=== PATIENT | male | born 1990 | race Caucasian/White ===

== ENCOUNTER 2017-06-22 08:24 | Emergency (ER) | payer MEDICAID ==
[2017-06-22] MEDS ORDERED: ACETYLCYSTEINE INJ 6000 MG/30 ML IV ONE (09:00)
--- NOTE | 2017-06-22 09:00 | ER Document Report ---
ED Psych Disorder / Suicide - General Mode of Arrival: Medic Information source: Patient TRAVEL OUTSIDE OF THE U.S. IN LAST 30 DAYS: No - HPI Patient complains to provider of: Overdose - Tylenol Onset: Just prior to arrival Overdose of: Acetominophen Associated symptoms: Other - see above <INEZ KIM - Last Filed: 06/22/17 08:55> - General Information source: Patient, Friend, [facility] Records TRAVEL OUTSIDE OF THE [place]. 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 Patient states he has an increase in financial stress and he hit his breaking point. Patient lives in [place] and brought a friend to town when his car broke down, patient said that was his last straw. Patient states taken the Tylenol was an impulsive decision and he "felt so overwhelmed in that very moment". Patient is in school at [employer] and works for [employer], he states he has been doing really well and not in the hospital the past 2 years for any overdose or psych related complaints. Patent has been going to therapy. (INEZ KIM) - HPI Notes: Patient is well known to this provider and is considered manipulative when providing medical and psychiatric history. Patient has not been seen at [facility] for approximately 2 years secondary to guardianship put in place by [place] [facility] and Patient being relocated to [place]. Patient reportedly was court ordered to the [facility] in [place] for a 90 day evaluation in April 2015 and subsequently stayed for 205 days while guardianship was obtained. He was reportedly discharged in December 2015. Patient reports on today's date he felt overwhelmed by financial and life stressors and impulsively took approximately 30 tylenol. When advised his lab work did not support his assertation, he reported " I know what I took." He went on to state he has done very well to stay out of the hospital for two years , he just graduated from [employer] with his AA, and was now attending [employer] for pre-law. He reported he was attending a DBT group at [facility], [facility] group on Tuesday nights, and another mental health support group on Tuesday nights. He reported being prescribed Wellbutrin 300 mg qd, Depakote 500 mg bid (for seizures-which he does not have), Tenex 1 mg, Xanax 1 mg bid, Oxycodone 15 mg tid, and Xarelto for a blood clotting disorder which has been proven to be non-existent as well. When pressed for more details, Patient went on to state he has not taken his medication for approximately one month and his primary care physician from [facility] in [place] prescribes everything but the Oxycodone which is prescribed by his Orthopedic Dr. 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 He could not provide a reason for a psychiatrist at [place] to not be providing him the medications. Patient also reported he has not attended his groups in a month. Patient reported this morning he was impulsive and "took the tylenol." Patient reported in March 2017 he was granted his guardianship back from [facility], but is unclear whether he is telling the truth. [facility] was unable to provide information at this time. Review of the [place] Controlled Substance Abuse Reporting [place] revealed a prescription for Valium on 03/02/2017 from [facility] in [place], 2 tablets, a prescription from [facility] of [place] for Ocycodone 5- 325 12 tablets / 3 day supply. Spoke with Henry, Patient's roommate who reported the Patient slept in his car last night and when he came in the room this morning he reported he did not feel well, was vomiting, had diarrhea, and thought he needed to check himself into the ED. Henry reported Patient's last hospital visit was two weeks. He reported the Patient's car was less than stellar and denied Patient was in school. He also stated he had never heard the Patient make suicidal statements and they had lived together and done everything together for the past two years. He reported they generally sat around and watched Meiyou or drove around town. He stated the only medication the Patient took was Xarelto. He reported he was aware of an incident approximately 1 1/2 years ago when the Patient made comments about wanting to jump off the [facility] but stated the Patient does not attend any doctor appointments or groups. He is unaware of whether the Patient has a guardian. Patient was alert and oriented to person, place, time, and circumstance. Mood was euthymic and affect was mood congruent. He denied suicidal / homicidal ideation, intent, or plan. He denied auditory / visual hallucinations and no delusions were noted. Thought processes were logical, linear, and coherent. Thought content was appropriate to conversation. Conversational speech was within normal limits for rate, tone, and prosody. Intellectual abilities were estimated within the average range. Recent, immediate, and remote memories were grossly intact. Attention and concentration was within normal limits. Insight, judgment, and impulse control was poor. Patient's information is generally fabricated and may to dome degree rise to the level of delusional belief patterns. 1. 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 Patient and his history is well known to this provider and ED. His reported complaint and symptoms are not consistent with objective findings and data obtained during his visit. Information he shared regarding his history for the past two years is inconsistent and again much of his medical history was previously disproven. Collateral information contradicts his entire claim. Patient is recommended to follow up with [facility] who was his established provider before he again became treatment and medication non-compliant. Patient was advised that should he re-engage in his previous pattern of behaviors, a recommendation for guardianship will once again be re-initiated. Again, Patient is psychiatrically cleared for discharge and recommended for outpatient follow up with [facility] in [place]. ED Physician in agreement with recommendation and disposition. (VENKATA MANZO) - Related Data Allergies/Adverse Reactions: diphenhydramine HCl [From Benadryl] Allergy (Severe, Verified 06/22/17 08:33) Apnea haloperidol [From Haldol] Allergy (Severe, Verified 06/22/17 08:33) Rash, Apnea haloperidol lactate [From Haldol] Allergy (Severe, Verified 06/22/17 08:33) Rash, Apnea Heparin Analogues [Heparin Agents] Allergy (Severe, Verified 06/22/17 08:33) Anaphylaxis methadone [Methadone] Allergy (Severe, Verified 06/22/17 08:33) Anaphylaxis buprenorphine HCl [From Suboxone] Allergy (Unknown, Verified 06/22/17 08:33) Rash naloxone HCl [From Suboxone] Allergy (Unknown, Verified 06/22/17 08:33) enoxaparin sodium [From Lovenox] Allergy (Verified 06/22/17 08:33) Rash hydroxyzine HCl [From Vistaril] Allergy (Verified 06/22/17 08:33) Apnea hydroxyzine pamoate [From Vistaril] Allergy (Verified 06/22/17 08:33) Apnea lidocaine [Lidocaine] Allergy (Verified 06/22/17 08:33) paliperidone [From Invega] Adverse Reaction (Verified 06/22/17 08:33) Severe Hypertension propranolol [Propranolol] Adverse Reaction (Verified 06/22/17 08:33) Severe Hypotension warfarin sodium [From Coumadin] Adverse Reaction (Verified 06/22/17 08:33) "Did not work" onions Allergy (Severe, Uncoded 06/22/17 08:33) Anaphylaxis nicotine patch adhesive Allergy (Intermediate, Uncoded 06/22/17 08:33) Rash Past Medical History - General Information source: Patient - Social History Smoking Status: Current Every Day Smoker Family History: Reviewed & Not Pertinent, Other - father with CAD in his 50s and an unknown clotting disorder; uncle with unknown clotting disorder. Patient has suicidal ideation: Yes Patient has homicidal ideation: No - Past Medical History Cardiac Medical History: Reports: Hx DVT, Hx Heart Attack - x's2, Hx Hypercholesterolemia, Hx Hypertension, Hx Pulmonary Embolism Pulmonary Medical History: Reports: Hx Pneumonia, Hx Sleep Apnea Neurological Medical History: Reports: Hx Seizures Endocrine Medical History: Reports: Hx Hypothyroidism Renal/ Medical History: Denies: Hx Peritoneal Dialysis GI Medical History: Reports: Hx Gastroesophageal Reflux Disease Psychiatric Medical History: Reports: Hx Anxiety, Hx Bipolar Disorder, Hx Borderline Personality Disorder, Hx Depression, Hx Personality Disorder, Hx Schizoaffective Disorder, Hx Schizophrenia Traumatic Medical History: Reports: Hx Traumatic Brain Injury Past Surgical History: Reports: Hx Cardiac Surgery - cannot confirm, Hx Coronary Stent - cannot confirm - Immunizations Immunizations up to date: Yes Hx Diphtheria, Pertussis, Tetanus Vaccination: Yes Hx Pneumococcal Vaccination: 10/31/13 <INEZ KIM - Last Filed: 06/22/17 08:55> - General Information source: Patient - Social History Smoking Status: Current Some Day Smoker <VENKATA MANZO - Last Filed: 06/22/17 11:20> Review of Systems - Review of Systems Constitutional: No symptoms reported EENT: No symptoms reported Cardiovascular: No symptoms reported Respiratory: No symptoms reported Gastrointestinal: No symptoms reported Genitourinary: No symptoms reported Male Genitourinary: No symptoms reported Musculoskeletal: No symptoms reported Skin: No symptoms reported Hematologic/Lymphatic: No symptoms reported Neurological/Psychological: See HPI, Other - overdose <KAREEN KIMANDRA - Last Filed: 06/22/17 08:55> Physical Exam - General General appearance: Alert, Anxious - HEENT Head: Normocephalic, Atraumatic Eyes: Normal Extraocular movements intact: Yes Pupils: PERRL - Respiratory Respiratory status: No respiratory distress Breath sounds: Normal - Cardiovascular Rhythm: Regular Heart sounds: Normal auscultation Murmur: No - Abdominal Inspection: Obese - Back Back: Normal - Extremities General upper extremity: Normal inspection, Normal ROM General lower extremity: Normal inspection, Normal ROM - Neurological Neuro grossly intact: Yes - Psychological Associated symptoms: Anxious - Skin Skin Temperature: Warm Skin Moisture: Dry Skin Color: Normal <INEZ KIM - Last Filed: 06/22/17 08:55> - Vital signs Vitals: Temp Pulse Resp BP Pulse Ox 98.8 F 87 18 137/94 H 98 06/22/17 08:33 06/22/17 08:33 06/22/17 08:33 06/22/17 08:33 06/22/17 08:33 Course <INZE KIM - Last Filed: 06/22/17 08:55> - Laboratory Result Diagrams: 06/22/17 08:49 06/22/17 08:49 <VENKATA MANZO - Last Filed: 06/22/17 11:20> - Laboratory Result Diagrams: 06/22/17 08:49 06/22/17 08:49 - EKG Interpretation by Pr EKG shows normal: Sinus rhythm, [place], Intervals, QRS Complexes, ST-T Waves Rate: Normal - 81 Rhythm: NSR <SHRUTI DANIELS - Last Filed: 06/22/17 14:09> - Re-evaluation Re-evalutation: 06/22/17 14:08 The patient's initial acetaminophen level is 27 and the repeat is undetectable. It appears the patient took a therapeutic dose of acetaminophen only. He essentially lied about overdosing today. (SHRUTI DANIELS) - Vital Signs Vital signs: Temp Pulse Resp BP Pulse Ox 98.8 F 87 18 131/84 H 97 06/22/17 08:33 06/22/17 08:33 06/22/17 13:01 06/22/17 13:01 06/22/17 13:01 - Laboratory Laboratory results interpreted by me: 06/22/17 06/22/17 06/22/17 08:49 09:48 12:57 Sodium 146.8 H Chloride 109 H Glucose 114 H ALT 113 H Urine Urobilinogen 2.0 H Urine Ascorbic Acid 40 H Salicylates < 1.0 L Acetaminophen < 10 L Discharge <INEZ KIM - Last Filed: 06/22/17 08:55> <VENKATA MANZO - Last Filed: 06/22/17 11:20> <SHRUTI DANIELS - Last Filed: 06/22/17 14:09> - Discharge Clinical Impression: Illness anxiety disorder, Malingering, Mnchausen's syndrome Acetaminophen overdose Qualifiers: Encounter type: initial encounter Injury intent: intentional self-harm Qualified Code(s): T39.1X2A - Poisoning by 4-Aminophenol derivatives, intentional self-harm, initial encounter Condition: Good Disposition: HOME, SELF-CARE Additional Instructions: Patient is recommended to follow up with [facility] for Outpatient Services and to re-engage with his DBT Group and medication provider. Overdose You have taken more medication than you should have. After your evaluation and care, it is felt that your overdose is not likely to be harmful or of any significant consequences to you and you are being discharged. In the future, you should be careful not to take more medications than what is prescribed for you. Although your overdose does not seem to be of any danger to you at this time, if you develop any unusual or unexpected symptoms after your discharge, you should return to the Emergency Department immediately for re-evaluation. Scribe Attestation: 06/22/17 11:01 I personally performed the services described in the documentation, reviewed and edited the documentation which was dictated to the scribe in my presence, and it accurately records my words and actions. (SHRUTI DANIELS) Scribe Documentation - Scribe Written by Scribe:: nereyda Mckinley, 06/22/2017, 0901 acting as scribe for :: Helen <INEZ KIM - Last Filed: 06/22/17 08:55>
[2017-06-22] MEDS ORDERED: ACETYLCYSTEINE INJ 6000 MG/30 ML IV PRN (09:02)
[2017-06-22 09:03] LABS: ABSOLUTE BASOPHILS # (AUTO) 0.1 10^3/uL (0.0-0.2); ABSOLUTE EOSINOPHILS # (AUTO) 0.1 10^3/uL (0.0-0.6); ABSOLUTE LYMPHOCYTES (AUTO) 1.8 10^3/uL (0.5-4.7); ABSOLUTE MONOCYTES (AUTO) 0.7 10^3/uL (0.1-1.4); ABSOLUTE NEUT (AUTO) 5.3 10^3/uL (1.7-8.2); BASOPHILS % (AUTO) 0.7 % (0-2); EOSINOPHILS % (AUTO) 1.3 % (0-6); HEMATOCRIT 44.3 % (37.9-51.0); HEMOGLOBIN 15.1 g/dL (13.5-17.0); LYMPHOCYTES % (AUTO) 22.3 % (13-45); MEAN CORPUSCULAR HEMOGLOBIN 27.4 pg (27.0-33.4); MEAN CORPUSCULAR HGB CONC 34.1 g/dL (32.0-36.0); MEAN CORPUSCULAR VOLUME 80 fl (80-97); MONOCYTES % (AUTO) 8.6 % (3-13); RED BLOOD COUNT 5.52 10^6/uL (4.35-5.55); RED CELL DISTRIBUTION WIDTH 13.9 % (11.5-14.0); SEGMENTED NEUTROPHILS % (AUTO) 67.1 % (42-78); WHITE BLOOD COUNT 7.9 10^3/uL (4.0-10.5)
[2017-06-22 09:11] LABS: ALANINE AMINOTRANSFERASE 113 U/L (21-72); ALBUMIN 4.4 g/dL (3.5-5.0); ALCOHOL < 10 mg/dL (NONE DETECTED); ALKALINE PHOSPHATASE 109 U/L (38-126); ANION GAP 13 (5-19); ASPARTATE AMINO TRANSFERASE 39 U/L (17-59); BILIRUBIN,DIRECT 0.4 mg/dL (0.0-0.4); BILIRUBIN,TOTAL 0.6 mg/dL (0.2-1.3); BLOOD UREA NITROGEN 17 mg/dL (7-20); CALCIUM 9.8 mg/dL (8.4-10.2); CARBON DIOXIDE 25 mmol/L (22-30); CHLORIDE 109 mmol/L (98-107); CREATININE RESULT 0.84 mg/dL (0.52-1.25); GLUCOSE 114 mg/dL (75-110); POTASSIUM 4.1 mmol/L (3.6-5.0); SODIUM 146.8 mmol/L (137-145); TOTAL PROTEIN 7.1 g/dL (6.3-8.2)
[2017-06-22 09:57] LABS: APPEARANCE,URINE CLEAR; BILIRUBIN,URINE NEGATIVE (NEGATIVE); GLUCOSE, URINE NEGATIVE (NEGATIVE); KETONES,URINE NEGATIVE (NEGATIVE); LEUKOCYTE ESTERASE,URINE NEGATIVE (NEGATIVE); NITRITE,URINE NEGATIVE (NEGATIVE); PROTEIN,URINE NEGATIVE (NEGATIVE); URINE SPECIFIC GRAVITY 1.042
[2017-06-22 10:16] LABS: URINE BARBITURATES SCREEN NEGATIVE; URINE METHADONE SCREEN NEGATIVE; URINE OPIATES LOW NEGATIVE; URINE PHENCYCLIDINE SCREEN NEGATIVE
--- NOTE | 2017-06-22 10:24 | EKG REPORT ---
SEVERITY:- NORMAL ECG - SINUS RHYTHM : Confirmed by: Ella Avendaño 22-Jun-2017 10:23:39
[2017-06-22 14:21] VITALS: BP 134/81
== END 2017-06-22 14:25 | disposition home or self-care (01) ==
LOC: EEVIPCON 08:24 → ER 08:24
DX: T45.7X2A Poisoning by anticoagulant antagonists, vitamin K and other coagulants, intentional self-harm, initial encounter (principal); F68.10 Factitious disorder imposed on self, unspecified; Z76.5 Malingerer [conscious simulation]; I25.2 Old myocardial infarction; I10 Essential (primary) hypertension; F17.200 Nicotine dependence, unspecified, uncomplicated; Z88.8 Allergy status to other drugs, medicaments and biological substances; Z88.5 Allergy status to narcotic agent; Z88.3 Allergy status to other anti-infective agents; Z88.4 Allergy status to anesthetic agent; Z87.892 Personal history of anaphylaxis; Z91.018 Allergy to other foods
CPT/HCPCS: 93005; 99284; 96365; 36415; 80307 ×4; 85025; 80053; 81001; 93010; J0132

== ENCOUNTER 2017-12-18 21:56 | Emergency (ER) | payer MEDICAID | END 2017-12-18 22:15 | disposition left against medical advice (07) | LOC: ER 21:56 | DX: Z53.21 Procedure and treatment not carried out due to patient leaving prior to being seen by health care provider (principal) ==

== ENCOUNTER 2018-01-25 21:11 | Emergency (ER) | payer MEDICAID, OTHER ==
[2018-01-25 21:54] VITALS: BP 144/88
[2018-01-25] MEDS ORDERED: NORMAL SALINE 1000 ML 1,000 ML IV ONE (22:11)
--- NOTE | 2018-01-25 22:11 | ER Document Report ---
ED Medical Screen (RME) - General Chief Complaint: Rectal Bleeding Stated Complaint: RECTAL BLEEDING Time Seen by Provider: 01/25/18 22:08 Mode of Arrival: Ambulatory Information source: Patient Notes: Patient presents complaining of generalized abdominal pain with rectal bleeding that started this evening. Patient states she has had 4 loose bowel movements that have had blood. Patient complains of mild lightheadedness. Patient denies any nausea or vomiting. Patient does report previous history of GI bleed due to supratherapeutic Coumadin and an additional episode when he had a gastric ulcer. Patient states he is not presently taking any Coumadin. hx: Factor V Leiden, anxiety, depression, TBI, seizures, chronic back pain, gastric ulcer I have greeted and performed a rapid initial assessment of this patient. A comprehensive ED assessment and evaluation of the patient, analysis of test results and completion of the medical decision making process will be conducted by additional ED providers. TRAVEL OUTSIDE OF THE U.S. IN LAST 30 DAYS: No - Related Data Allergies/Adverse Reactions: diphenhydramine HCl [From Benadryl] Allergy (Severe, Verified 01/25/18 21:38) Apnea haloperidol [From Haldol] Allergy (Severe, Verified 01/25/18 21:38) Rash, Apnea haloperidol lactate [From Haldol] Allergy (Severe, Verified 01/25/18 21:38) Rash, Apnea Heparin Analogues [Heparin Agents] Allergy (Severe, Verified 01/25/18 21:38) Anaphylaxis enoxaparin sodium [From Lovenox] Allergy (Verified 01/25/18 21:38) Rash hydroxyzine HCl [From Vistaril] Allergy (Verified 01/25/18 21:38) Apnea hydroxyzine pamoate [From Vistaril] Allergy (Verified 01/25/18 21:38) Apnea lidocaine [Lidocaine] Allergy (Verified 01/25/18 21:38) paliperidone [From Invega] Adverse Reaction (Verified 01/25/18 21:38) Severe Hypertension propranolol [Propranolol] Adverse Reaction (Verified 01/25/18 21:38) Severe Hypotension warfarin sodium [From Coumadin] Adverse Reaction (Verified 01/25/18 21:38) "Did not work" onions Allergy (Severe, Uncoded 06/22/17 08:33) Anaphylaxis nicotine patch adhesive Allergy (Intermediate, Uncoded 06/22/17 08:33) Rash Past Medical History - Past Medical History Cardiac Medical History: Reports: Hx DVT, Hx Heart Attack - x's2, Hx Hypercholesterolemia, Hx Hypertension, Hx Pulmonary Embolism Pulmonary Medical History: Reports: Hx Pneumonia, Hx Sleep Apnea Neurological Medical History: Reports: Hx Seizures Endocrine Medical History: Reports: Hx Hypothyroidism Renal/ Medical History: Denies: Hx Peritoneal Dialysis GI Medical History: Reports: Hx Gastroesophageal Reflux Disease Psychiatric Medical History: Reports: Hx Anxiety, Hx Bipolar Disorder, Hx Borderline Personality Disorder, Hx Depression, Hx Personality Disorder, Hx Schizoaffective Disorder, Hx Schizophrenia Traumatic Medical History: Reports: Hx Traumatic Brain Injury Past Surgical History: Reports: Hx Cardiac Surgery - cannot confirm, Hx Coronary Stent - cannot confirm - Immunizations Immunizations up to date: Yes Hx Diphtheria, Pertussis, Tetanus Vaccination: Yes Physical Exam - Vital signs Vitals: Temp Pulse Resp BP Pulse Ox 98.4 F 74 18 144/88 H 98 01/25/18 21:50 01/25/18 21:50 01/25/18 21:50 01/25/18 21:50 01/25/18 21:50 - Abdominal Tenderness: Tender - Generalized abdomen Course - Vital Signs Vital signs: Temp Pulse Resp BP Pulse Ox 98.4 F 74 18 144/88 H 98 01/25/18 21:50 01/25/18 21:50 01/25/18 21:50 01/25/18 21:50 01/25/18 21:50
[2018-01-25] MEDS ORDERED: ACETAMINOPHEN 325 MG TABLET PO ONE (22:33)
--- NOTE | 2018-01-25 23:28 | ER Document Report ---
ED General - General Chief Complaint: Rectal Bleeding Stated Complaint: RECTAL BLEEDING Time Seen by Provider: 01/25/18 22:08 Mode of Arrival: Ambulatory Notes: Patient is a 27-year-old male who presents with complaint of rectal bleeding. He has a history of recurrent rectal bleeding. He is on Xarelto due to a history of factor V Leiden disease. He has had multiple blood clots in the past. He says he does not have any active blood clots at this time. He says throughout the day he has had some intermittent bloody stools. He says it has been coffee-ground in color. He says he has chronic back pain. He says because a chronic back pain he has some abdominal pain but he says this is not new or worsened from baseline. No fevers. No vomiting. No other complaints at this time. TRAVEL OUTSIDE OF THE [place] IN LAST 30 DAYS: No - Related Data Allergies/Adverse Reactions: diphenhydramine HCl [From Benadryl] Allergy (Severe, Verified 01/25/18 21:38) Apnea haloperidol [From Haldol] Allergy (Severe, Verified 01/25/18 21:38) Rash, Apnea haloperidol lactate [From Haldol] Allergy (Severe, Verified 01/25/18 21:38) Rash, Apnea Heparin Analogues [Heparin Agents] Allergy (Severe, Verified 01/25/18 21:38) Anaphylaxis enoxaparin sodium [From Lovenox] Allergy (Verified 01/25/18 21:38) Rash hydroxyzine HCl [From Vistaril] Allergy (Verified 01/25/18 21:38) Apnea hydroxyzine pamoate [From Vistaril] Allergy (Verified 01/25/18 21:38) Apnea lidocaine [Lidocaine] Allergy (Verified 01/25/18 21:38) paliperidone [From Invega] Adverse Reaction (Verified 01/25/18 21:38) Severe Hypertension propranolol [Propranolol] Adverse Reaction (Verified 01/25/18 21:38) Severe Hypotension warfarin sodium [From Coumadin] Adverse Reaction (Verified 01/25/18 21:38) "Did not work" onions Allergy (Severe, Uncoded 06/22/17 08:33) Anaphylaxis nicotine patch adhesive Allergy (Intermediate, Uncoded 06/22/17 08:33) Rash Past Medical History - General Information source: Patient - Social History Smoking Status: Unknown if Ever Smoked Frequency of alcohol use: None Drug Abuse: None Family History: Reviewed & Not Pertinent, Other - father with CAD in his 50s and an unknown clotting disorder; uncle with unknown clotting disorder. - Past Medical History Cardiac Medical History: Reports: Hx DVT, Hx Heart Attack - x's2, Hx Hypercholesterolemia, Hx Hypertension, Hx Pulmonary Embolism Pulmonary Medical History: Reports: Hx Pneumonia, Hx Sleep Apnea Neurological Medical History: Reports: Hx Seizures Endocrine Medical History: Reports: Hx Hypothyroidism Renal/ Medical History: Denies: Hx Peritoneal Dialysis GI Medical History: Reports: Hx Gastroesophageal Reflux Disease Psychiatric Medical History: Reports: Hx Anxiety, Hx Bipolar Disorder, Hx Borderline Personality Disorder, Hx Depression, Hx Personality Disorder, Hx Schizoaffective Disorder, Hx Schizophrenia Traumatic Medical History: Reports: Hx Traumatic Brain Injury Past Surgical History: Reports: Hx Cardiac Surgery - cannot confirm, Hx Coronary Stent - cannot confirm - Immunizations Immunizations up to date: Yes Hx Diphtheria, Pertussis, Tetanus Vaccination: Yes Hx Pneumococcal Vaccination: 10/31/13 Review of Systems - Review of Systems Notes: My Normal Review Basic REVIEW OF SYSTEMS: CONSTITUTIONAL : Denies fever, chills, or sweats. Denies recent illness. EENT: Denies eye, ear, throat, or mouth pain or symptoms. Denies nasal or sinus congestion. RESPIRATORY: Denies cough, cold, or chest congestion. Denies shortness of breath, difficulty breathing, or wheezing. GASTROINTESTINAL: Some mild abdominal pain. Rectal bleeding. MUSCULOSKELETAL: Denies neck or back pain or joint pain or swelling. SKIN: Denies rash or skin lesions. NEUROLOGICAL: Denies altered mental status or loss of consciousness. ALL OTHER SYSTEMS REVIEWED AND NEGATIVE. Physical Exam - Vital signs Vitals: Temp Pulse Resp BP Pulse Ox 98.4 F 74 18 144/88 H 98 01/25/18 21:50 01/25/18 21:50 01/25/18 21:50 01/25/18 21:50 01/25/18 21:50 - Notes Notes: General Appearance: Well nourished, alert, cooperative, no acute distress, no obvious discomfort. Vitals: reviewed, See vital signs table. Head: no swelling or tenderness to the head Eyes: PERRL, EOMI, Conjuctiva clear Mouth: No decreasd moisture Lungs: No wheezing, No rales, No rhonci, No accessory muscle use, good air exchange bilaterally. Heart: Normal rate, Regular rythm, No murmur, no rub Abdomen: Normal BS, soft, No rigidity, mild epigastric abdominal tenderness, No guarding, no rebound, Rectal: Light brown stool without evidence of gross blood. No hemorrhoids seen on exam. Extremities: good pulses in all extremities, no swelling or tenderness in the extremities, no edema. Skin: warm, dry, appropriate color, no rash Neuro: speech clear, oriented x 3, normal affect, responds appropriately to questions. Course - Re-evaluation Re-evalutation: 01/26/18 02:00 When I did my examination the patient she asked for "something small for pain". He said this was worse chronic back pain. Left the room. I was not taking care of him very sick pediatric patient. Apparently when the nurse brought him the Tylenol and he became very upset and said he was going to leave if we did give him something stronger for pain. At that time is course currently tied up with a stick. Patient therefore unable to come immediately to his room. It is unlikely it would have given him opiate pain medications as he wanted pain for his chronic back pain and he did not have significant pain on exam and he has a history of multiple drug overdoses. Therefore the combination of those reasons would have made it very unlikely that I would have given him opiates in the first place. By the time I was able to go evaluate the patient he had already eloped. Dictation of this chart was performed using voice recognition software; therefore, there may be some unintended grammatical errors. 01/26/18 02:09 - Vital Signs Vital signs: Temp Pulse Resp BP Pulse Ox 98.4 F 74 18 144/88 H 98 01/25/18 21:50 01/25/18 21:50 01/25/18 21:50 01/25/18 21:50 01/25/18 21:50
== END 2018-01-26 00:15 | disposition left against medical advice (07) ==
LOC: ER 21:11
DX: Z53.21 Procedure and treatment not carried out due to patient leaving prior to being seen by health care provider (principal); K62.5 Hemorrhage of anus and rectum; Z79.01 Long term (current) use of anticoagulants; M54.9 Dorsalgia, unspecified; G89.29 Other chronic pain; R10.9 Unspecified abdominal pain; I10 Essential (primary) hypertension
CPT/HCPCS: 82272; 99281

== ENCOUNTER 2018-02-08 07:47 | Emergency (ER) | payer MEDICAID ==
[2018-02-08 09:29] LABS: ABSOLUTE EOSINOPHILS # (AUTO) 0.1 10^3/uL (0.0-0.6); ABSOLUTE LYMPHOCYTES (AUTO) 1.6 10^3/uL (0.5-4.7); ABSOLUTE MONOCYTES (AUTO) 0.5 10^3/uL (0.1-1.4); ABSOLUTE NEUT (AUTO) 6.2 10^3/uL (1.7-8.2); BASOPHILS % (AUTO) 0.4 % (0-2); EOSINOPHILS % (AUTO) 1.5 % (0-6); HEMATOCRIT 47.4 % (37.9-51.0); HEMOGLOBIN 16.1 g/dL (13.5-17.0); LYMPHOCYTES % (AUTO) 18.6 % (13-45); MEAN CORPUSCULAR VOLUME 79 fl (80-97); MONOCYTES % (AUTO) 5.9 % (3-13); PLATELET COUNT 229 10^3/uL (150-450); RED BLOOD COUNT 5.97 10^6/uL (4.35-5.55); RED CELL DISTRIBUTION WIDTH 13.9 % (11.5-14.0); SEGMENTED NEUTROPHILS % (AUTO) 73.6 % (42-78); TOTAL CELLS COUNTED % (AUTO) 100 %; WHITE BLOOD COUNT 8.4 10^3/uL (4.0-10.5)
[2018-02-08 09:59] LABS: ALANINE AMINOTRANSFERASE 36 U/L (21-72); ALBUMIN 4.3 g/dL (3.5-5.0); ALKALINE PHOSPHATASE 88 U/L (38-126); ANION GAP 10 (5-19); ASPARTATE AMINO TRANSFERASE 21 U/L (17-59); BILIRUBIN,DIRECT 0.2 mg/dL (0.0-0.4); BILIRUBIN,TOTAL 0.5 mg/dL (0.2-1.3); BLOOD UREA NITROGEN 10 mg/dL (7-20); CALCIUM 9.6 mg/dL (8.4-10.2); CARBON DIOXIDE 29 mmol/L (22-30); CHLORIDE 108 mmol/L (98-107); GLUCOSE 101 mg/dL (75-110); SODIUM 147.4 mmol/L (137-145); TOTAL PROTEIN 7.2 g/dL (6.3-8.2)
--- NOTE | 2018-02-08 10:11 | ER Document Report ---
ED General - General Chief Complaint: Chest Pain Stated Complaint: CHEST PAIN Time Seen by Provider: 02/08/18 07:49 Mode of Arrival: Medic Information source: Patient Notes: 27-year-old male extensive psychiatric history presents with complaints of chest pain. Patient states he feels like something is hitting his chest, patient notes his chest wall and is reproducible upon palpation TRAVEL OUTSIDE OF THE [place] IN LAST 30 DAYS: No - HPI Onset: Just prior to arrival Onset/Duration: Sudden Quality of pain: Pressure Severity: Mild Pain Level: 1 Associated symptoms: Body/muscle aches Exacerbated by: Denies Relieved by: Denies Similar symptoms previously: Yes Recently seen / treated by doctor: Yes - Related Data Allergies/Adverse Reactions: diphenhydramine HCl [From Benadryl] Allergy (Severe, Verified 01/25/18 21:38) Apnea haloperidol [From Haldol] Allergy (Severe, Verified 01/25/18 21:38) Rash, Apnea haloperidol lactate [From Haldol] Allergy (Severe, Verified 01/25/18 21:38) Rash, Apnea Heparin Analogues [Heparin Agents] Allergy (Severe, Verified 01/25/18 21:38) Anaphylaxis enoxaparin sodium [From Lovenox] Allergy (Verified 01/25/18 21:38) Rash hydroxyzine HCl [From Vistaril] Allergy (Verified 01/25/18 21:38) Apnea hydroxyzine pamoate [From Vistaril] Allergy (Verified 01/25/18 21:38) Apnea lidocaine [Lidocaine] Allergy (Verified 01/25/18 21:38) paliperidone [From Invega] Adverse Reaction (Verified 01/25/18 21:38) Severe Hypertension propranolol [Propranolol] Adverse Reaction (Verified 01/25/18 21:38) Severe Hypotension warfarin sodium [From Coumadin] Adverse Reaction (Verified 01/25/18 21:38) "Did not work" onions Allergy (Severe, Uncoded 06/22/17 08:33) Anaphylaxis nicotine patch adhesive Allergy (Intermediate, Uncoded 06/22/17 08:33) Rash Past Medical History - Social History Smoking Status: Current Every Day Smoker Cigarette use (# per day): Yes Chew tobacco use (# tins/day): No Smoking Education Provided: Yes - Patient counselled regarding cessation for 4 minutes Patient counselled reg Frequency of alcohol use: None Drug Abuse: None Family History: Reviewed & Not Pertinent, Other - father with CAD in his 50s and an unknown clotting disorder; uncle with unknown clotting disorder. Patient has suicidal ideation: No Patient has homicidal ideation: No - Past Medical History Cardiac Medical History: Reports: Hx DVT, Hx Heart Attack - x's2, Hx Hypercholesterolemia, Hx Hypertension, Hx Pulmonary Embolism Pulmonary Medical History: Reports: Hx Pneumonia, Hx Sleep Apnea Neurological Medical History: Reports: Hx Seizures Endocrine Medical History: Reports: Hx Hypothyroidism Renal/ Medical History: Denies: Hx Peritoneal Dialysis GI Medical History: Reports: Hx Gastroesophageal Reflux Disease Psychiatric Medical History: Reports: Hx Anxiety, Hx Bipolar Disorder, Hx Borderline Personality Disorder, Hx Depression, Hx Personality Disorder, Hx Schizoaffective Disorder, Hx Schizophrenia Traumatic Medical History: Reports: Hx Traumatic Brain Injury Past Surgical History: Reports: Hx Cardiac Surgery - cannot confirm, Hx Coronary Stent - cannot confirm - Immunizations Immunizations up to date: Yes Hx Diphtheria, Pertussis, Tetanus Vaccination: Yes Hx Pneumococcal Vaccination: 10/31/13 Review of Systems - Review of Systems Notes: REVIEW OF SYSTEMS: CONSTITUTIONAL : Denies fever, chills, or sweats. Denies recent illness. EENT: Denies eye, ear, throat, or mouth pain or symptoms. Denies nasal or sinus congestion or discharge. Denies throat, tongue, or mouth swelling or difficulty swallowing. CARDIOVASCULAR: Admits to chest pain RESPIRATORY: Denies cough, cold, or chest congestion. Denies shortness of breath, difficulty breathing, or wheezing. GASTROINTESTINAL: Denies abdominal pain or distention. Denies nausea, vomiting , or diarrhea. Denies blood in vomitus, stools, or per rectum. Denies black, tarry stools. Denies constipation. GENITOURINARY: Denies difficulty urinating, painful urination, burning, frequency, blood in urine, or discharge. MUSCULOSKELETAL: Denies back or neck pain or stiffness. Denies joint pain or swelling. SKIN: Denies rash, lesions or sores. HEMATOLOGIC : Denies easy bruising or bleeding. LYMPHATIC: Denies swollen, enlarged glands. NEUROLOGICAL: Denies confusion or altered mental status. Denies passing out or loss of consciousness. Denies dizziness or lightheadedness. Denies headache. Denies weakness or paralysis or loss of use of either side. Denies problems with gait or speech. Denies sensory loss, numbness, or tingling. Denies seizures. PSYCHIATRIC: Denies anxiety or stress. Denies depression, suicidal ideation, or homicidal ideation. ALL OTHER SYSTEMS REVIEWED AND NEGATIVE. Dictation was performed using [employer] voice recognition software PHYSICAL EXAMINATION: GENERAL: Well-appearing, well-nourished and in no acute distress. HEAD: Atraumatic, normocephalic. EYES: Pupils equal round and reactive to light, extraocular movements intact, sclera anicteric, conjunctiva are normal. ENT: Nares patent, oropharynx clear without exudates. Moist mucous membranes. NECK: Normal range of motion, supple without lymphadenopathy LUNGS: Breath sounds clear to auscultation bilaterally and equal. No wheezes rales or rhonchi. HEART: Regular rate and rhythm without murmurs chest pain reproducible upon palpation of the chest wall ABDOMEN: Soft, nontender, nondistended abdomen. No guarding, no rebound. No masses appreciated. Musculoskeletal: Normal range of motion, no pitting or edema. No cyanosis. NEUROLOGICAL: Cranial nerves grossly intact. Normal speech, normal gait. Normal sensory, motor exams PSYCH: Normal mood, normal affect. SKIN: Warm, Dry, normal turgor, no rashes or lesions noted. Physical Exam - Vital signs Vitals: Resp 17 02/08/18 07:56 Course - Re-evaluation Re-evalutation: 02/08/18 10:10 Patient has allergy to NSAIDs, I believe this is all chest wall versus anxiety related, patient will be treated with steroids for an inflammatory issue otherwise is stable for discharge 02/08/18 16:42 Patient lab work noted no significant abnormality, patient overall looks well, I do believe his anxiety definitely plays a large role in this but will treat as if it is costochondritis at this time There is notes regarding DVTs and PEs in the past however there is no confirmed such diagnosis, it is noted that the patient due to his psychiatric history has attempted to harm himself on blood thinners in the past After performing a Medical Screening Examination, I estimate there is LOW risk for RUPTURED ESOPHAGUS, PNEUMOTHORAX, PULMONARY EMBOLISM, ACUTE CORONARY SYNDROME, OR THORACIC AORTIC DISSECTION, thus I consider the discharge disposition reasonable. I have reevaluated this patient multiple times and no significant life threatening changes are noted. The patient and I have discussed the diagnosis and risks, and we agree with discharging home with close follow-up. We also discussed returning to the Emergency Department immediately if new or worsening symptoms occur. We have discussed the symptoms which are most concerning (e.g., bloody sputum, worsening pain or shortness of breath) that necessitate immediate return. - Vital Signs Vital signs: Temp Pulse Resp BP Pulse Ox 15 132/88 H 96 02/08/18 10:22 02/08/18 10:22 02/08/18 10:00 - Laboratory Result Diagrams: 02/08/18 09:15 02/08/18 09:15 Laboratory results interpreted by me: 02/08/18 02/08/18 09:15 09:15 RBC 5.97 H MCV 79 L Sodium 147.4 H Chloride 108 H - Diagnostic Test Radiology reviewed: Image reviewed - No acute abnormality, Reports reviewed - EKG Interpretation by Me EKG shows normal: Sinus rhythm, [place], Intervals, QRS Complexes When compared to previous EKG there are: No significant change Discharge - Discharge Clinical Impression: Chest pain Qualifiers: Chest pain type: unspecified Qualified Code(s): R07.9 - Chest pain, unspecified Condition: Stable Disposition: HOME, SELF-CARE Instructions: Chest Wall Pain ([facility]) Additional Instructions: Follow up with your physician tomorrow for further care or return to the ED IMMEDIATELY if symptoms worsen or new concerns occur. If you cannot afford to follow up with your primary care physician a list of low cost clinics have been provided at the end of your discharge papers as well. Prescriptions: Prednisone [Deltasone 20 mg Tablet] 3 tab PO DAILY 5 Days tablet
[2018-02-08 10:26] VITALS: BP 132/88
--- NOTE | 2018-02-08 14:02 | EKG REPORT ---
SEVERITY:- NORMAL ECG - SINUS RHYTHM : Confirmed by: Brian Pérez MD 08-Feb-2018 14:01:26
== END 2018-02-08 10:26 | disposition home or self-care (01) ==
LOC: ER 07:47
DX: R07.89 Other chest pain (principal); F41.9 Anxiety disorder, unspecified; I10 Essential (primary) hypertension; I25.2 Old myocardial infarction; F17.210 Nicotine dependence, cigarettes, uncomplicated; Z71.6 Tobacco abuse counseling; Z88.8 Allergy status to other drugs, medicaments and biological substances; Z88.4 Allergy status to anesthetic agent; Z87.892 Personal history of anaphylaxis; Z91.018 Allergy to other foods; Z82.49 Family history of ischemic heart disease and other diseases of the circulatory system; Z86.711 Personal history of pulmonary embolism; Z86.718 Personal history of other venous thrombosis and embolism
CPT/HCPCS: 36415; 80053; 84484; 85025; 93005; 93010; 99285; 99406

== ENCOUNTER 2018-08-20 19:26 | Emergency (ER) | payer MEDICAID ==
[2018-08-20] MEDS ORDERED: HYDROCODONE/ACETAMINOPHEN 10-325 MG TABLET PO ONE (20:12)
--- NOTE | 2018-08-20 20:15 | RADIOLOGY REPORT (SQ) ---
EXAM DESCRIPTION: ANKLE LEFT COMPLETE COMPLETED DATE/TIME: 08/20/2018 8:00 pm REASON FOR STUDY: fall COMPARISON: None. NUMBER OF VIEWS: Three views. TECHNIQUE: AP, lateral, and oblique radiographic images acquired of the left ankle. LIMITATIONS: None. FINDINGS: MINERALIZATION: Normal. BONES: A mildly displaced complex fracture is seen of the distal fibula. No definite posterior malle olar fracture is visualized. JOINTS: No effusions. SOFT TISSUES: Mild soft tissue swelling is seen laterally. OTHER: No other significant finding. IMPRESSION: Mildly displaced complex fracture of the distal fibula. TECHNICAL DOCUMENTATION: JOB ID: [id number] [employer]- All Rights Reserved Reading location - IP/workstation name: [email or web address]
--- NOTE | 2018-08-20 20:17 | ER Document Report ---
ED Extremity Problem, Lower - General Chief Complaint: Ankle Injury Stated Complaint: LEFT ANKLE PAIN Time Seen by Provider: 08/20/18 20:03 Notes: Patient is a 28-year-old male presenting to the emergency department complaining of left ankle pain. Patient states he was walking his dog when his dog went down a hill he tried to follow the dog and inverted his left ankle. Patient states he heard and felt a pop and had immediate pain. Patient states he has not been able to put weight on his left foot since incident. Patient denies hitting his head neck or back or loss of consciousness. Patient states last oral intake was 1914. Patient is currently on Xarelto for DVT and PE prophylaxis. Past medical history: DVT, PE, depression, hypertension, hypothyroid Medications: Xarelto, Ambien, Wellbutrin, Adderall, Synthroid, Tenex Allergies: Lovenox, heparin, Haldol, Benadryl, Toradol TRAVEL OUTSIDE OF THE [place] IN LAST 30 DAYS: No - Related Data Allergies/Adverse Reactions: diphenhydramine HCl [From Benadryl] Allergy (Severe, Verified 04/22/18 09:11) Apnea haloperidol [From Haldol] Allergy (Severe, Verified 04/22/18 09:11) Rash, Apnea haloperidol lactate [From Haldol] Allergy (Severe, Verified 04/22/18 09:11) Rash, Apnea Heparin Analogues [Heparin Agents] Allergy (Severe, Verified 04/22/18 09:11) Anaphylaxis lamotrigine [From Lamictal] Allergy (Intermediate, Verified 04/22/18 09:55) rash enoxaparin sodium [From Lovenox] Allergy (Verified 04/22/18 09:11) Rash hydroxyzine HCl [From Vistaril] Allergy (Verified 04/22/18 09:11) Apnea hydroxyzine pamoate [From Vistaril] Allergy (Verified 04/22/18 09:11) Apnea ketorolac [From Toradol] Allergy (Verified 04/22/18 09:55) lidocaine [Lidocaine] Allergy (Verified 04/22/18 09:11) tramadol Allergy (Verified 04/22/18 09:55) paliperidone [From Invega] Adverse Reaction (Verified 04/22/18 09:11) Severe Hypertension propranolol [Propranolol] Adverse Reaction (Verified 04/22/18 09:11) Severe Hypotension warfarin sodium [From Coumadin] Adverse Reaction (Verified 04/22/18 09:11) "Did not work" onions Allergy (Severe, Uncoded 04/22/18 09:11) Anaphylaxis nicotine patch adhesive Allergy (Intermediate, Uncoded 04/22/18 09:11) Rash Past Medical History - General Information source: Patient - Social History Smoking Status: Current Every Day Smoker Lives with: Family Family History: Reviewed & Not Pertinent, Other - father with CAD in his 50s and an unknown clotting disorder; uncle with unknown clotting disorder. - Past Medical History Cardiac Medical History: Reports: Hx DVT, Hx Heart Attack - x's2, Hx Hypercholesterolemia, Hx Hypertension, Hx Pulmonary Embolism Pulmonary Medical History: Reports: Hx Pneumonia, Hx Sleep Apnea Neurological Medical History: Reports: Hx Seizures Endocrine Medical History: Reports: Hx Hypothyroidism Renal/ Medical History: Denies: Hx Peritoneal Dialysis GI Medical History: Reports: Hx Gastroesophageal Reflux Disease Psychiatric Medical History: Reports: Hx Anxiety, Hx Bipolar Disorder, Hx Borderline Personality Disorder, Hx Depression, Hx Personality Disorder, Hx Schizoaffective Disorder, Hx Schizophrenia Traumatic Medical History: Reports: Hx Traumatic Brain Injury Past Surgical History: Reports: Hx Cardiac Surgery - cannot confirm, Hx Coronary Stent - cannot confirm - Immunizations Immunizations up to date: Yes Hx Diphtheria, Pertussis, Tetanus Vaccination: Yes Hx Pneumococcal Vaccination: 10/31/13 Review of Systems - Review of Systems Constitutional: No symptoms reported EENT: No symptoms reported Cardiovascular: No symptoms reported Respiratory: No symptoms reported Gastrointestinal: No symptoms reported Genitourinary: No symptoms reported Male Genitourinary: No symptoms reported Musculoskeletal: See HPI Skin: See HPI Hematologic/Lymphatic: See HPI Neurological/Psychological: See HPI Physical Exam - Vital signs Vitals: Temp Pulse Resp BP Pulse Ox 98.4 F 75 20 138/73 H 100 08/20/18 19:33 08/20/18 19:33 08/20/18 19:33 08/20/18 19:33 08/20/18 19:33 - Notes Notes: GENERAL: Alert, interacts well. HEAD: Normocephalic, atraumatic. EYES: Pupils equal, round, and reactive to light. Extraocular movements intact. ENT: Oral mucosa moist, tongue midline. NECK: Full range of motion. Supple. Trachea midline. LUNGS: Clear to auscultation bilaterally, no wheezes, rales, or rhonchi. No respiratory distress. HEART: Regular rate and rhythm. No murmur ABDOMEN: Obese, soft, non-tender. Non-distended. Bowel sounds present in all 4 quadrants. EXTREMITIES: Moves all 4 extremities spontaneously. normal radial and dorsalis pedis pulses bilaterally. No cyanosis. Swelling left lateral malleolus. Distal pulses intact. Positive cap refill. No pain upon palpation knee or soto left LE. BACK: no cervical, thoracic, lumbar midline tenderness. No saddle anesthesia, normal distal neurovascular exam. NEUROLOGICAL: Alert and oriented x3. Normal speech. cranial nerves II through XII grossly intact PSYCH: Normal affect, normal mood. SKIN: Warm, dry, normal turgor. No rashes or lesions noted. Course - Re-evaluation Re-evalutation: 08/20/18 21:50 Fibular fracture noted on x-ray. Discussed case with Dr. Raya who suggest a ankle stirrup and posterior short leg splint. Follow-up with orthopedics. Pain management will be given. - Vital Signs Vital signs: Temp Pulse Resp BP Pulse Ox 98.6 F 88 20 140/94 H 99 08/20/18 22:04 08/20/18 22:04 08/20/18 22:04 08/20/18 22:04 08/20/18 22:04 Discharge - Discharge Clinical Impression: Fibula fracture Qualifiers: Encounter type: initial encounter Fibula location: distal Fracture type: closed Fracture morphology: unspecified fracture morphology Laterality: left Qualified Code(s): S82.832A - Other fracture of upper and lower end of left fibula, initial encounter for closed fracture Condition: Stable Disposition: HOME, SELF-CARE Instructions: Ankle Stirrup Splint ([facility]), Use of Crutches ([facility]), Oral Narcotic Medication ([facility]) Additional Instructions: As we discussed you have broken 1 of the bones in your left lower leg. You should keep the splint on that we placed in the emergency room until you follow- up with orthopedics. Orthopedic doctor's phone number will be included in this packet. You have also been prescribed pain medications. Please take them as prescribed. Return to the emergency room for any worsening pain, numbness or tingling to the left leg, or any other worsening symptoms. Prescriptions: Hydrocodone/Acetaminophen [[place] 10-325 Tablet] 1 each PO Q6 #15 tablet Referrals: CARINA VALADEZ DO [ACTIVE STAFF] - Follow up as needed TOY THOMAS MD [ACTIVE STAFF] - Follow up as needed
--- NOTE | 2018-08-20 20:59 | RADIOLOGY REPORT (SQ) ---
EXAM DESCRIPTION: TIBIA FIBULA LEFT COMPLETED DATE/TIME: 08/20/2018 8:47 pm REASON FOR STUDY: pain COMPARISON: Left ankle radiographs performed 08/20/2018 NUMBER OF VIEWS: Two views. TECHNIQUE: Two radiographic images acquired of the left tibia and fibula to include the knee and ank le in at least one projection. LIMITATIONS: None. FINDINGS: MINERALIZATION: Normal. BONES: Re- demonstration of a complex fracture of the distal fibula. A nondisplaced posterior malleo lar fracture also visualized on this examination. SOFT TISSUES: Lateral soft tissue swelling is noted. OTHER: No other significant finding. IMPRESSION: Re- demonstration of distal fibular fracture with additional findings of nondisplaced po sterior malleolar fracture. TECHNICAL DOCUMENTATION: JOB ID: [id number] [employer]- All Rights Reserved Reading location - IP/workstation name: [email or web address]
[2018-08-20 22:11] VITALS: BP 140/94
== END 2018-08-20 22:11 | disposition home or self-care (01) ==
LOC: ER 19:26
DX: S82.832A Other fracture of upper and lower end of left fibula, initial encounter for closed fracture (principal); M25.572 Pain in left ankle and joints of left foot; X50.1XXA Overexertion from prolonged static or awkward postures, initial encounter; Z79.01 Long term (current) use of anticoagulants; Z86.718 Personal history of other venous thrombosis and embolism; Z86.711 Personal history of pulmonary embolism; I10 Essential (primary) hypertension; Z79.899 Other long term (current) drug therapy; F17.200 Nicotine dependence, unspecified, uncomplicated
CPT/HCPCS: 99284

== ENCOUNTER → 2018-08-31 | Day surgery (SDC) | payer MEDICAID ==
[~2018-08-31] MED LIST: ACETAMINOPHEN 0 MG/0 ML RTUPB IV ONE; BUPIVACAINE HCL 0.5 % INJ/PF 30 ML SDV ONE; CEFAZOLIN 2 GM/D5W RTU 2 GM/50 ML RTUPB IV ONE; CEFAZOLIN 2 GM/D5W RTU 2 GM/50 ML RTUPB IV PRN; FENTANYL CITRATE INJ/PF 100 MCG/2 ML AMPUL ONE; HYDROMORPHONE HCL INJ/PF 2 MG/ML AMPULE ONE; MIDAZOLAM 2 MG/2 ML INJ ONE; PROPOFOL INJ 200 MG/20 ML VIAL IV ONE
[2018-08-31 11:49] LABS: HEMATOCRIT 45.9 % (37.9-51.0); HEMOGLOBIN 15.7 g/dL (13.5-17.0); MEAN CORPUSCULAR HEMOGLOBIN 27.2 pg (27.0-33.4); MEAN CORPUSCULAR HGB CONC 34.2 g/dL (32.0-36.0); MEAN CORPUSCULAR VOLUME 80 fl (80-97); PLATELET COUNT 238 10^3/uL (150-450); RED BLOOD COUNT 5.77 10^6/uL (4.35-5.55); RED CELL DISTRIBUTION WIDTH 13.4 % (11.5-14.0); WHITE BLOOD COUNT 6.7 10^3/uL (4.0-10.5)
[2018-08-31 12:09] LABS: ANION GAP 10 (5-19); BLOOD UREA NITROGEN 18 mg/dL (7-20); CALCIUM 9.7 mg/dL (8.4-10.2); CARBON DIOXIDE 29 mmol/L (22-30); CHLORIDE 108 mmol/L (98-107); GLUCOSE 101 mg/dL (75-110); POTASSIUM 4.7 mmol/L (3.6-5.0); SODIUM 146.7 mmol/L (137-145)
[2018-08-31 12:18] VITALS: BP 132/91
--- NOTE | 2018-08-31 12:21 | RADIOLOGY REPORT (SQ) ---
EXAM DESCRIPTION: CHEST SINGLE VIEW COMPLETED DATE/TIME: 08/31/2018 11:58 am REASON FOR STUDY: PREOP COMPARISON: None. EXAM PARAMETERS: NUMBER OF VIEWS: One view. TECHNIQUE: Single frontal radiographic view of the chest acquired. RADIATION DOSE: NA LIMITATIONS: None. FINDINGS: LUNGS AND PLEURA: No opacities, masses or pneumothorax. No pleural effusion. MEDIASTINUM AND HILAR STRUCTURES: No masses. Contour normal. HEART AND VASCULAR STRUCTURES: Heart normal in size. Normal vasculature. BONES: No acute findings. HARDWARE: None in the chest. OTHER: No other significant finding. IMPRESSION: NO ACUTE RADIOGRAPHIC FINDING IN THE CHEST. TECHNICAL DOCUMENTATION: JOB ID: [id number] [employer]- All Rights Reserved Reading location - IP/workstation name: [email or web address]
--- NOTE | 2018-08-31 12:28 | EKG REPORT ---
SEVERITY:- NORMAL ECG - SINUS RHYTHM : Confirmed by: May Parks MD 31-Aug-2018 12:26:57
== END ==
LOC: OROUT 10:45
PROVIDERS: ATTEND Orthopaedic Surgery
DX: Z01.818 Encounter for other preprocedural examination (principal)
CPT/HCPCS: 36415; 85027; 80048; 71045; 93005; 93010; J0690; J0131; J1170; J2250; J2704; J3010; J3490

== ENCOUNTER 2018-09-08 10:55 | Day surgery (SDC) | payer MEDICAID ==
[~2018-09-08 10:55] MED LIST changes: -ACETAMINOPHEN 0 MG/0 ML RTUPB IV ONE; -CEFAZOLIN 2 GM/D5W RTU 2 GM/50 ML RTUPB IV ONE; -FENTANYL CITRATE INJ/PF 100 MCG/2 ML AMPUL ONE; -HYDROMORPHONE HCL INJ/PF 2 MG/ML AMPULE ONE; +LACTATED RINGERS 1000 ML IV PRN; +LIDOCAINE 0.5% INJ-PF (5 MG/ML) 50 ML SDV SUBCUT PRN; -MIDAZOLAM 2 MG/2 ML INJ ONE; -PROPOFOL INJ 200 MG/20 ML VIAL IV ONE
[2018-09-08] MEDS ORDERED: CEFAZOLIN 2 GM/D5W RTU 2 GM/50 ML RTUPB IV ONE (11:23)
[2018-09-08] MEDS ORDERED: MIDAZOLAM 2 MG/2 ML INJ ONE (11:38)
[2018-09-08] MEDS ORDERED: FAMOTIDINE INJ/PF 20 MG/2 ML SDV IV ONE (11:38)
[2018-09-08] MEDS ORDERED: IPRATROPIUM/ALBUTEROL 0.5-2.5 MG/3 ML AMPUL NEB ONE (11:38)
[2018-09-08 11:52] LABS: APPEARANCE,URINE SLIGHTLY-CLOUDY; BILIRUBIN,URINE NEGATIVE (NEGATIVE); COLOR,URINE YELLOW; GLUCOSE, URINE NEGATIVE (NEGATIVE); KETONES,URINE NEGATIVE (NEGATIVE); LEUKOCYTE ESTERASE,URINE NEGATIVE (NEGATIVE); NITRITE,URINE NEGATIVE (NEGATIVE); PROTEIN,URINE NEGATIVE (NEGATIVE); URINE SPECIFIC GRAVITY 1.024; UROBILINOGEN,URINE NEGATIVE mg/dL (<2.0)
[2018-09-08] MEDS ORDERED: MORPHINE SULFATE 10 MG/ML INJ ONE (11:56)
[2018-09-08 12:02] LABS: INTERNATIONAL RATION (INR) 0.86; PROTHROMBIN TIME 12.2 SEC (11.4-15.4)
[2018-09-08 12:13] LABS: PARTIAL THROMBOPLASTIN TIME 20.4 SEC (23.5-35.8)
[2018-09-08] MEDS ORDERED: FENTANYL CITRATE INJ/PF 100 MCG/2 ML AMPUL ONE (12:43)
[2018-09-08] MEDS ORDERED: PROPOFOL INJ 200 MG/20 ML VIAL IV ONE (12:44)
[2018-09-08] MEDS ORDERED: BUPIVACAINE HCL/DEX-WATER/PF 15 MG/2 ML AMPULE ONE (12:47)
[2018-09-08] MEDS ORDERED: FENTANYL CITRATE INJ/PF 250 MCG/5 ML AMPULE ONE (13:27)
[2018-09-08] MEDS ORDERED: FENTANYL CITRATE INJ/PF 100 MCG/2 ML AMPUL IV PRN (13:50)
--- NOTE | 2018-09-08 14:05 | Operative Report ---
Operative Report DATE OF SURGERY: 09/08/18 PREOPERATIVE DIAGNOSIS: Left lateral malleolus fracture POSTOPERATIVE DIAGNOSIS: same OPERATION: ORIF left lateral malleolus fracture SURGEON: TOY BAGLEY ANESTHESIA: GA TISSUE REMOVED OR ALTERED: none COMPLICATIONS: none ESTIMATED BLOOD LOSS: Less than 20 mL INTRAOPERATIVE FINDINGS: As above PROCEDURE: Patient received 2 g of Ancef in the preoperative holding area. Patient was now taken to the operating room and induced and intubated in supine position. Once the tube was secured a thigh tourniquet was applied to left extremity. Extremity was prepped and draped in a normal surgical fashion. Timeout was done identifying the left as the correct site. Esmarch was used to exsanguinate the extremity and the tourniquet was inflated to 300 mmHg. A standard lateral incision was done straight over the distal fibula. Check position was taken down to the bone and then periosteal elevator was used to expose the fracture site and elevate the periosteum at the fracture site. Both fragments were visualized and I Vishalhmann was used to retract the tissue. I was able to then reduce the fracture with reduction clamps. C-arm pictures were taken to confirm our reduction. I then applied the appropriate plate and make sure was in a proper alignment and with C-arm. Once I was satisfied with the proximal distal situation and the AP lateral position of the plate I proceeded then to use the drill guide and drill to drill the proximal hole in the plate in the distal fragment. I measured and placed a proper length screw. I repeated this with the distal hole in the plate to secure the proximal fragment. Reduction clamp was removed and the fracture stayed reduced. AP and lateral x-rays confirm there is no change in alignment. I then proceeded to fill in the remaining holes I drilling and using C-arm and measuring guide to applied appropriate screws. Once I was satisfied with my lateral fixation At this point I proceeded to close my lateral wound with 0 Vicryl and 3-0 Vicryl and cole for skin. Tourniquet was let down and the dressing was applied. Xeroform 4 x 4 sterile dressing followed by Sof-Rol was applied. A posterior Ortho-Glass splint with a Ortho-Glass stirrup splint was applied and overwrapped with an Stepan bandage. I held the foot in neutral and waiting until the splint hardened. At this point drapes were removed and patient was extubated and sent to PACU in stable condition.
[2018-09-08] MEDS ORDERED: ONDANSETRON HCL INJ/PF 4 MG/2 ML SDV ONE (14:08)
[2018-09-08] MEDS ORDERED: DEXAMETHASONE SOD PHOSPHATE INJ 4 MG/1 ML VIAL ONE (14:08)
[2018-09-08] MEDS ORDERED: SUCCINYLCHOLINE CHLORIDE INJ 200 MG/10 ML VIAL ONE (14:08)
--- NOTE | 2018-09-08 14:08 | Discharge Summary ---
Discharge Summary (SDC) - Discharge Final Diagnosis: ORIF of left lateral malleolus Date of Surgery: 09/08/18 Discharge Date: 09/08/18 Condition: Good Treatment or Instructions: Dressing dry clean and intact for 1 week then okay to remove and shower. Unable to soak. Wear the boot at all times and stay nonweightbearing and ice and elevate when not ambulating. If any redness or drainage develops follow-up sooner but if not follow-up in 10- 14 days. Prescriptions: Rivaroxaban [Xarelto 10 mg Tablet] 10 mg PO QHS #14 tablet Oxycodone HCl/Acetaminophen [Percocet 5-325 mg Tablet] 1 - 2 tab PO ASDIR PRN # 30 tablet PRN Reason: Discharge Diet: As Tolerated Respiratory Treatments at Home: Deep Breathing/Coughing Discharge Activity: No Driving, Keep Legs Elevated, No Lifting/Push/Pulling Home Care Assistance: None Needed Adaptive Devices on Discharge: Axillary Crutches Report the Following to Your Physician Immediately: Shortness of Breath, Vomiting, Increase in Pain, Fever over 101 Degrees, Unusual Bleeding, Redness, Swelling, Increased Soreness, Drainage-Yellow, Drainage-Hector, Drainage-Green, Drainage-Foul Smelling
[2018-09-08] MEDS ORDERED: OXYCODONE-ACETAMINOPHEN 5-325 MG TABLET PO PRN ×2 (14:26)
[2018-09-08] MEDS: HYDROMORPHONE HCL INJ/PF 2 MG/ML AMPULE ONE ×5 (14:28→15:55)
--- NOTE | 2018-09-08 14:42 | RADIOLOGY REPORT (SQ) ---
EXAM DESCRIPTION: NO CHG FLUORO; ANKLE LEFT AP/LATERAL COMPLETED DATE/TIME: 09/08/2018 2:27 pm REASON FOR STUDY: ORIF LEFT ANKLE ASST WITH FLUORO IN OR COMPARISON: None. FLUOROSCOPY TIME: 0.2 minutes 2 Images saved to PACS LIMITATIONS: None. PROCEDURE: ORIF left ankle FINDINGS: 2 images from fluoro document the placement of a compression plate on the distal fibula. IMPRESSION: ORIF left ankle. Refer to operative note for further information. COMMENT: PQRS 6045F: Fluoroscopy time of the procedure is documented in the report. TECHNICAL DOCUMENTATION: JOB ID: [id number] [employer]- All Rights Reserved Reading location - IP/workstation name: [email or web address]
--- NOTE | 2018-09-08 14:42 | RADIOLOGY REPORT (SQ) ---
EXAM DESCRIPTION: NO CHG FLUORO; ANKLE LEFT AP/LATERAL COMPLETED DATE/TIME: 09/08/2018 2:27 pm REASON FOR STUDY: ORIF LEFT ANKLE ASST WITH FLUORO IN OR COMPARISON: None. FLUOROSCOPY TIME: 0.2 minutes 2 Images saved to PACS LIMITATIONS: None. PROCEDURE: ORIF left ankle FINDINGS: 2 images from fluoro document the placement of a compression plate on the distal fibula. IMPRESSION: ORIF left ankle. Refer to operative note for further information. COMMENT: PQRS 6045F: Fluoroscopy time of the procedure is documented in the report. TECHNICAL DOCUMENTATION: JOB ID: [id number] [employer]- All Rights Reserved Reading location - IP/workstation name: [email or web address]
[2018-09-08] MEDS ORDERED: HYDROMORPHONE HCL INJ/PF 2 MG/ML AMPULE ONE (15:21)
[2018-09-08] MEDS ORDERED: LORAZEPAM INJ 2 MG/1 ML VIAL ONE (15:21)
[2018-09-08] MEDS ORDERED: OXYCODONE HCL SR 10 MG TABLET PO ONE (17:08)
[2018-09-08 19:30] VITALS: BP 156/91
== END 2018-09-08 18:30 | disposition home or self-care (01) ==
LOC: OROUT 10:55
PROVIDERS: ATTEND Orthopaedic Surgery
DX: S82.62XA Displaced fracture of lateral malleolus of left fibula, initial encounter for closed fracture (principal); W01.0XXA Fall on same level from slipping, tripping and stumbling without subsequent striking against object, initial encounter; E03.9 Hypothyroidism, unspecified; I10 Essential (primary) hypertension; D64.9 Anemia, unspecified; G40.909 Epilepsy, unspecified, not intractable, without status epilepticus; F17.210 Nicotine dependence, cigarettes, uncomplicated; Z86.711 Personal history of pulmonary embolism; Z86.718 Personal history of other venous thrombosis and embolism; Z79.899 Other long term (current) drug therapy; Z79.01 Long term (current) use of anticoagulants; Z88.8 Allergy status to other drugs, medicaments and biological substances; Z87.892 Personal history of anaphylaxis; E66.3 Overweight; Z68.37 Body mass index [BMI] 37.0-37.9, adult
CPT/HCPCS: 36415; 85610; 85730; 81001; 73600; 27792; C1713 ×5; J2250; J3490 ×3; J1100; J3010 ×2; J2270; J1170; J2060; J0330; J2405; J2704; S0028; J7620; J0690; 01480

== ENCOUNTER 2018-10-15 15:05 | Emergency (ER) | payer MEDICAID ==
[2018-10-15] MEDS ORDERED: NORMAL SALINE 1000 ML 1,000 ML IV ONE (16:54)
--- NOTE | 2018-10-15 16:59 | ER Document Report ---
ED Medical Screen (RME) - General Chief Complaint: Headache Stated Complaint: FACIAL PAIN/PRESSURE Time Seen by Provider: 10/15/18 16:37 Mode of Arrival: Ambulatory Information source: Patient Notes: Patient presents complaining of right-sided headache pain that started around 4 AM. Patient states is not typical of his usual migraines is usually he has headache pain all over his head. Patient does report nausea but denies any vomiting. Patient reports headache started gradually. Patient states that he has taken 12 Tylenol 500 mg tablets in attempt to treat his pain symptoms. Patient with multiple drug allergies. 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 Patient has a history of factor V Leiden. I have greeted and performed a rapid initial assessment of this patient. A comprehensive ED assessment and evaluation of the patient, analysis of test results and completion of the medical decision making process will be conducted by additional ED providers. TRAVEL OUTSIDE OF THE [place] IN LAST 30 DAYS: No - Related Data Allergies/Adverse Reactions: diphenhydramine HCl [From Benadryl] Allergy (Severe, Verified 04/22/18 09:11) Apnea haloperidol [From Haldol] Allergy (Severe, Verified 04/22/18 09:11) Rash, Apnea haloperidol lactate [From Haldol] Allergy (Severe, Verified 04/22/18 09:11) Rash, Apnea Heparin Analogues [Heparin Agents] Allergy (Severe, Verified 04/22/18 09:11) Anaphylaxis lamotrigine [From Lamictal] Allergy (Intermediate, Verified 04/22/18 09:55) rash enoxaparin sodium [From Lovenox] Allergy (Verified 04/22/18 09:11) Rash hydroxyzine HCl [From Vistaril] Allergy (Verified 04/22/18 09:11) Apnea hydroxyzine pamoate [From Vistaril] Allergy (Verified 04/22/18 09:11) Apnea ketorolac [From Toradol] Allergy (Verified 04/22/18 09:55) lidocaine [Lidocaine] Allergy (Verified 04/22/18 09:11) tramadol Allergy (Verified 04/22/18 09:55) paliperidone [From Invega] Adverse Reaction (Verified 04/22/18 09:11) Severe Hypertension propranolol [Propranolol] Adverse Reaction (Verified 04/22/18 09:11) Severe Hypotension warfarin sodium [From Coumadin] Adverse Reaction (Verified 04/22/18 09:11) "Did not work" onions Allergy (Severe, Uncoded 04/22/18 09:11) Anaphylaxis nicotine patch adhesive Allergy (Intermediate, Uncoded 04/22/18 09:11) Rash Past Medical History - Past Medical History Cardiac Medical History: Reports: Hx DVT, Hx Hypercholesterolemia, Hx Hypertension - on meds, Hx Pulmonary Embolism Denies: Hx Coronary Artery Disease, Hx Heart Attack Pulmonary Medical History: Reports: Hx Asthma - ON MEDS, Hx Pneumonia, Hx Sleep Apnea Denies: Hx Bronchitis, Hx COPD Neurological Medical History: Reports: Hx Seizures - on meds LAST SX 1YR AGO. Denies: Hx Cerebrovascular Accident Endocrine Medical History: Reports: Hx Hypothyroidism Renal/ Medical History: Denies: Hx Peritoneal Dialysis GI Medical History: Reports: Hx Gastroesophageal Reflux Disease Musculoskeltal Medical History: Denies Hx Arthritis Psychiatric Medical History: Reports: Hx Anxiety, Hx Bipolar Disorder, Hx Borderline Personality Disorder, Hx Depression, Hx Personality Disorder, Hx Schizoaffective Disorder, Hx Schizophrenia Traumatic Medical History: Reports: Hx Traumatic Brain Injury Past Surgical History: Reports: Hx Cardiac Surgery - cannot confirm, Hx Coronary Stent - cannot confirm - Immunizations Immunizations up to date: Yes Hx Diphtheria, Pertussis, Tetanus Vaccination: Yes History of Influenza Vaccine for 07/2017 - 12/2017 Season: Yes Influenza Administration Date for 07/2017 - 12/2017 Season: 07/12/18 Physical Exam - Vital signs Vitals: Temp Pulse Resp BP Pulse Ox 98.8 F 98 18 126/88 H 96 10/15/18 15:40 10/15/18 15:40 10/15/18 15:40 10/15/18 15:40 10/15/18 15:40 - Neurological Neuro grossly intact: Yes [place] Coma Scale Eye Opening: Spontaneous Amy Coma Scale Motor: Obeys Commands Course - Vital Signs Vital signs: Temp Pulse Resp BP Pulse Ox 98.8 F 98 18 126/88 H 96 10/15/18 15:40 10/15/18 15:40 10/15/18 15:40 10/15/18 15:40 10/15/18 15:40 Doctor's Discharge - Discharge Referrals: MINOR RADFORD MD [Primary Care Provider] - Follow up as needed
[2018-10-15] MEDS ORDERED: LORAZEPAM INJ 2 MG/1 ML VIAL IV ONE (17:32)
[2018-10-15] MEDS ORDERED: ONDANSETRON HCL INJ/PF 4 MG/2 ML SDV IV ONE (17:32)
[2018-10-15] MEDS ORDERED: HYDROMORPHONE HCL INJ/PF 2 MG/ML AMPULE IV ONE ×2 (17:33→21:38)
--- NOTE | 2018-10-15 19:42 | RADIOLOGY REPORT (SQ) ---
EXAM DESCRIPTION: CT HEAD WITHOUT COMPLETED DATE/TIME: 10/15/2018 7:22 pm REASON FOR STUDY: Headache. COMPARISON: CT head 02/09/2014, 06/11/2012, 11/23/2010. TECHNIQUE: Axial images acquired through the brain without intravenous contrast. Images reviewed wi th bone, brain and subdural windows. Images stored on PACS. All CT scanners at this facility use dose modulation, iterative reconstruction, and/or weight based d osing when appropriate to reduce radiation dose to as low as reasonably achievable (ALARA). [facility]: Dose Right [facility]: CareDose [facility]: Dose Right [facility]: Teradose 4D [facility]: [employer] RADIATION DOSE: CT Rad equipment meets quality standard of care and radiation dose reduction techniq ues were employed. CTDIvol: 53.2 mGy. DLP: 1017 mGy-cm. mGy. LIMITATIONS: None. FINDINGS: VENTRICLES: Normal size and contour. CEREBRUM: No mass effect. No hemorrhage. No midline shift. Normal garcia/white matter differentiatio n. No evidence for acute territorial infarction. Redemonstration of encephalomalacia at the right p arieto-occipital region. CEREBELLUM: No mass effect. No hemorrhage. No alteration of density. No evidence for acute infarct ion. EXTRAAXIAL SPACES: No fluid collections. ORBITS AND GLOBE: Symmetrical contour of the globes. CALVARIUM: No depressed skull fracture. PARANASAL SINUSES: No air-fluid level. SOFT TISSUES: No hematoma. IMPRESSION: No acute intracranial hemorrhage or acute territorial infarct. Redemonstration of encep halomalacia at the right parieto-occipital region. EVIDENCE OF ACUTE STROKE: NO. COMMENT: Quality ID # [id number]: Final reports with documentation of one or more dose reduction techniques (e.g., Automated exposure control, adjustment of the mA and/or kV according to patient size, use of iterative reconstruction technique) TECHNICAL DOCUMENTATION: JOB ID: [id number] 2010 [employer]- All Rights Reserved Reading location - IP/workstation name: [email or web address]
[2018-10-15 21:19] LABS: ABSOLUTE BASOPHILS # (AUTO) 0.1 10^3/uL (0.0-0.2); ABSOLUTE EOSINOPHILS # (AUTO) 0.2 10^3/uL (0.0-0.6); ABSOLUTE LYMPHOCYTES (AUTO) 1.8 10^3/uL (0.5-4.7); ABSOLUTE MONOCYTES (AUTO) 0.5 10^3/uL (0.1-1.4); ABSOLUTE NEUT (AUTO) 4.6 10^3/uL (1.7-8.2); BASOPHILS % (AUTO) 0.7 % (0-2); EOSINOPHILS % (AUTO) 3.2 % (0-6); HEMATOCRIT 43.3 % (37.9-51.0); LYMPHOCYTES % (AUTO) 24.7 % (13-45); MEAN CORPUSCULAR HEMOGLOBIN 27.4 pg (27.0-33.4); MEAN CORPUSCULAR HGB CONC 34.6 g/dL (32.0-36.0); MEAN CORPUSCULAR VOLUME 79 fl (80-97); MONOCYTES % (AUTO) 7.3 % (3-13); PLATELET COUNT 215 10^3/uL (150-450); RED BLOOD COUNT 5.48 10^6/uL (4.35-5.55); RED CELL DISTRIBUTION WIDTH 13.8 % (11.5-14.0); SEGMENTED NEUTROPHILS % (AUTO) 64.1 % (42-78); TOTAL CELLS COUNTED % (AUTO) 100 %; WHITE BLOOD COUNT 7.2 10^3/uL (4.0-10.5)
[2018-10-15 21:37] LABS: ALANINE AMINOTRANSFERASE 48 U/L (21-72); ALBUMIN 4.2 g/dL (3.5-5.0); ALKALINE PHOSPHATASE 111 U/L (38-126); ANION GAP 8 (5-19); ASPARTATE AMINO TRANSFERASE 20 U/L (17-59); BILIRUBIN,DIRECT 0.2 mg/dL (0.0-0.4); BILIRUBIN,TOTAL 0.4 mg/dL (0.2-1.3); BLOOD UREA NITROGEN 9 mg/dL (7-20); CALCIUM 9.2 mg/dL (8.4-10.2); CARBON DIOXIDE 26 mmol/L (22-30); CHLORIDE 110 mmol/L (98-107); GLUCOSE 102 mg/dL (75-110); POTASSIUM 3.7 mmol/L (3.6-5.0); SODIUM 143.8 mmol/L (137-145); TOTAL PROTEIN 6.8 g/dL (6.3-8.2)
[2018-10-15 22:00] LABS: ERYTHROCYTE SEDIMENTATION RATE 9 mm/hr (0-15)
[2018-10-15] MEDS ORDERED: HYDROMORPHONE HCL INJ/PF 2 MG/ML AMPULE IM STA (22:25)
--- NOTE | 2018-10-15 23:09 | ER Document Report ---
ED Headache - General Chief Complaint: Headache Stated Complaint: FACIAL PAIN/PRESSURE Time Seen by Provider: 10/15/18 16:37 Mode of Arrival: Ambulatory Notes: Patient is a 28-year-old male comes emergency room complaining of headache. Patient states around 5 AM in the morning he woke up with a right-sided headache which encompassed the temporal area and the eye. Patient states he has a history of these type of headaches and has been diagnosed with migraines. This is similar to all his other headaches that he is had in the past. He has positive photophobia and nausea. He has also history of hypertension, DVT, PE. He also states he has been under increased amount of stress lately. TRAVEL OUTSIDE OF THE [place] IN LAST 30 DAYS: No - HPI Patient complains to provider of: Headache, "Migraine" Patient reports: Occasional migraines Onset: This morning Onset was: Abrupt Timing: Still present Quality of pain: Sharp, Throbbing Severity: Moderate Pain Level: 3 Context: denies: Head injury, Insect bite, Meningitis exposure, Tick bite Preceding symptoms: Typical of prior aura(s). denies: Visual disturbance Worse/persistent since: 0 500 Associated symptoms: Nausea/vomiting, Photophobia. denies: Confusion, Dizzy, Double/blurred vision, Lightheaded, Motor/sensory loss to arm, Motor/sensory loss to leg, Speech problems, Stiff neck, Trouble walking Exacerbated by: Light, Noise Similar symptoms previously: Yes Recently seen / treated by doctor: Yes - Related Data Allergies/Adverse Reactions: diphenhydramine HCl [From Benadryl] Allergy (Severe, Verified 04/22/18 09:11) Apnea haloperidol [From Haldol] Allergy (Severe, Verified 04/22/18 09:11) Rash, Apnea haloperidol lactate [From Haldol] Allergy (Severe, Verified 04/22/18 09:11) Rash, Apnea Heparin Analogues [Heparin Agents] Allergy (Severe, Verified 04/22/18 09:11) Anaphylaxis lamotrigine [From Lamictal] Allergy (Intermediate, Verified 04/22/18 09:55) rash enoxaparin sodium [From Lovenox] Allergy (Verified 04/22/18 09:11) Rash hydroxyzine HCl [From Vistaril] Allergy (Verified 04/22/18 09:11) Apnea hydroxyzine pamoate [From Vistaril] Allergy (Verified 04/22/18 09:11) Apnea ketorolac [From Toradol] Allergy (Verified 04/22/18 09:55) lidocaine [Lidocaine] Allergy (Verified 04/22/18 09:11) tramadol Allergy (Verified 04/22/18 09:55) paliperidone [From Invega] Adverse Reaction (Verified 04/22/18 09:11) Severe Hypertension propranolol [Propranolol] Adverse Reaction (Verified 04/22/18 09:11) Severe Hypotension warfarin sodium [From Coumadin] Adverse Reaction (Verified 04/22/18 09:11) "Did not work" onions Allergy (Severe, Uncoded 04/22/18 09:11) Anaphylaxis nicotine patch adhesive Allergy (Intermediate, Uncoded 04/22/18 09:11) Rash Past Medical History - General Information source: Patient - Social History Smoking Status: Never Smoker Cigarette use (# per day): No Chew tobacco use (# tins/day): No Smoking Education Provided: No Frequency of alcohol use: None Drug Abuse: None Family History: Reviewed & Not Pertinent, Other - father with CAD in his 50s and an unknown clotting disorder; uncle with unknown clotting disorder. Patient has suicidal ideation: No Patient has homicidal ideation: No - Past Medical History Cardiac Medical History: Reports: Hx DVT, Hx Hypercholesterolemia, Hx Hypertension - on meds, Hx Pulmonary Embolism Denies: Hx Coronary Artery Disease, Hx Heart Attack Pulmonary Medical History: Reports: Hx Asthma - ON MEDS, Hx Pneumonia, Hx Sleep Apnea Denies: Hx Bronchitis, Hx COPD Neurological Medical History: Reports: Hx Seizures - on meds LAST SX 1YR AGO. Denies: Hx Cerebrovascular Accident Endocrine Medical History: Reports: Hx Hypothyroidism Renal/ Medical History: Denies: Hx Peritoneal Dialysis GI Medical History: Reports: Hx Gastroesophageal Reflux Disease Musculoskeletal Medical History: Denies Hx Arthritis Psychiatric Medical History: Reports: Hx Anxiety, Hx Bipolar Disorder, Hx Borderline Personality Disorder, Hx Depression, Hx Personality Disorder, Hx Schizoaffective Disorder, Hx Schizophrenia Traumatic Medical History: Reports: Hx Traumatic Brain Injury Past Surgical History: Reports: Hx Cardiac Surgery - cannot confirm, Hx Coronary Stent - cannot confirm - Immunizations Immunizations up to date: Yes Hx Diphtheria, Pertussis, Tetanus Vaccination: Yes Hx Pneumococcal Vaccination: 10/31/13 Review of Systems - Review of Systems Constitutional: No symptoms reported EENT: No symptoms reported Cardiovascular: No symptoms reported Respiratory: No symptoms reported Gastrointestinal: No symptoms reported Genitourinary: No symptoms reported Male Genitourinary: No symptoms reported Musculoskeletal: No symptoms reported Skin: No symptoms reported Hematologic/Lymphatic: No symptoms reported Neurological/Psychological: See HPI, Depression, Anxiety, Headaches. denies: Confusion, Sensory change, Homicidal ideation, Gait changes, Paralysis, Lost consciousness, Speech impairment, Suicidal ideation -: Yes All other systems reviewed and negative Physical Exam - Vital signs Vitals: Temp Pulse Resp BP Pulse Ox 98.8 F 98 18 126/88 H 96 10/15/18 15:40 10/15/18 15:40 10/15/18 15:40 10/15/18 15:40 10/15/18 15:40 Interpretation: Normal - Notes Notes: PHYSICAL EXAMINATION: GENERAL: Patient is a well-nourished well-developed 28-year-old male who is in no apparent distress on physical examination. He is however very uncomfortable in obvious pain. Secondary to his headache. HEAD: Atraumatic, normocephalic. No abnormalities found on physical examination of the head. There was no external sensitivity to touch along the right side of the scalp. EYES: Pupils equal round and reactive to light, extraocular movements intact, sclera anicteric, conjunctiva are normal. ENT: Nares patent, oropharynx clear without exudates. Moist mucous membranes. NECK: Normal range of motion, supple without lymphadenopathy further evaluation of the neck shows no tenderness to palpation. No meningeal signs LUNGS: Breath sounds clear to auscultation bilaterally and equal. No wheezes rales or rhonchi. HEART: Regular rate and rhythm without murmurs Musculoskeletal: Normal range of motion, no pitting or edema. No cyanosis. NEUROLOGICAL: Cranial nerves grossly intact. Normal speech, normal gait. Normal sensory, motor exams. NIH score of 0 was obtained neurologically intact. No abnormalities found PSYCH: Slightly anxious SKIN: Warm, Dry, normal turgor, no rashes or lesions noted. Course - Re-evaluation Re-evalutation: 10/17/18 14:31 Because of patient's past history of DVT and PE and because he has been on Xarelto for many years because of this presentation of his headache it was felt necessary to do the CT of his head because of the risk of bleed secondary to the anticoagulation. Patient's course of stay was rather lengthy secondary to report of his original CT which read in the impression no acute intracranial hemorrhage or acute territorial infarct. Redemonstration of encephalomalacia at the right parietal occipital region. No evidence of acute stroke. I discussed this with my attending at the time Dr. Rowe and she requested that I see if we could get an MRI of his head. This was approximately at 7:45 when I placed the order and MRI had left for the day. However I did not know what time and I was not informed that they had already left until around 9:30 PM. Reexamination of patient at this time with a once again for a total neurologic check a NIH score again of 0 and patient feeling much better I discussed the case with my attending at that time Dr. Boyd who did a quick scan of patient's past history and found that he has had the same presentation of headaches dating back to as far back as 2010. The presentations of all been the same and his CT reports all have mentioned the encephalomalacia. Following our times and examples of those reports. June 09, 2011 CT scan without contrast showed no evidence of acute infarction. Areas of encephalomalacia in the right parietal and occipital lobes which are chronic and stable. June 11, 2012. No evidence of acute infarction. There is an old area of encephalomalacia in the right occipital lobe unchanged. February 09, 2014. No midline shift. Normal garcia/white matter differentiation. No evidence for acute infarction. The previously described focal encephalomalacia in the right posterior parietal region appears stable. October 15, [address] report again no acute intracranial hemorrhage or acute territorial infarct. Redemonstration of encephalomalacia at the right parieto-occipital region. No evidence of acute stroke. Given these findings and patient's presentation we feel comfortable in not having to arrange for MRI. I discussed this with the patient and informed him of the findings and I did mention to him that we still could not be 100% certain that there was not a early subarachnoid bleed secondary to his anticoagulation and offered to do a spinal tap. Patient refused to have a spinal tap done because he stated this is the way it presents all the time. He has follow-up with his primary care provider this coming week and he will discuss with them the options of reestablishing with a neurologist. Prior to patient being discharged he was giving only a second dose of pain medication which was not as strong as the first round. He had been here pretty much all day on the first little bit with resolution of headache but it was starting to come back slightly before discharge. Patient also stated that this is his normal response to this headache presentation is that it comes on very strong to start then after being treated it goes away and then comes back slightly and when he goes home and goes to sleep the next day he is usually back to normal. Neurologic exam just prior to discharge again was totally normal. Patient was very happy with the care he received and he will follow-up with his primary as indicated. 10/17/18 14:36 10/17/18 14:51 - Vital Signs Vital signs: Temp Pulse Resp BP Pulse Ox 99.3 F 76 18 150/92 H 98 10/15/18 23:19 10/15/18 23:19 10/15/18 15:40 10/15/18 23:19 10/15/18 23:19 - Laboratory Result Diagrams: 10/15/18 21:00 10/15/18 21:00 Laboratory results interpreted by me: 10/15/18 10/15/18 21:00 21:00 MCV 79 L Chloride 110 H Discharge - Discharge Clinical Impression: Headache Qualifiers: Headache type: unspecified Headache chronicity pattern: unspecified pattern Intractability: not intractable Qualified Code(s): R51 - Headache Condition: Stable Disposition: HOME, SELF-CARE Instructions: Headache ([facility]) Additional Instructions: HEADACHE: The physician does not feel that the headache you are experiencing has a serious underlying cause. Most headaches are due to emotional stress, with resultant muscle tension (tension headache). Occasionally, headaches are secondary to changes in the blood vessels of the scalp (vascular headache and migraine headache). Sometimes, a headache is the first symptom of another developing illness, such as a viral infection. You have no evidence of stroke, bleeding, meningitis, or other serious cause of your headache. FOLLOW-UP CARE: If you have been referred to a physician for follow-up care, call the physician s office for an appointment as you were instructed or within the next two days. If you experience worsening or a significant change in your symptoms, notify the physician immediately or return to the Emergency Department at any time for re-evaluation.As we discussed we have kept her here for a substantial time today just monitoring you to make sure that this is acute on chronic headache presentation was still stable. We originally thought about doing an MRI of the head however when I have gone back in your history you have been presenting with this type of a headache since his far back as I can find so far of 2010. You also have had a description of one form or another of this focal encephalomalacia on the right side area described in all the CTs that have been presented at that time. Therefore do not believe this to be associated with any acute phenomenon. However at this point I highly suggest that you talk to your primary care and reestablish with a neurologist. In the meantime you can continue to take your pain medication as prescribed. Should you have any concerns or problems you can return to ER for a recheck. Referrals: MINOR RADFORD MD [Primary Care Provider] - Follow up as needed
[2018-10-15] MEDS ORDERED: ONDANSETRON 4 MG TAB.RAPDIS PO ONE (23:10)
[2018-10-15 23:22] VITALS: BP 150/92
== END 2018-10-15 23:22 | disposition home or self-care (01) ==
LOC: ER 15:05
DX: R51 Headache (principal); R11.2 Nausea with vomiting, unspecified; H53.149 Visual discomfort, unspecified; I10 Essential (primary) hypertension; Z86.718 Personal history of other venous thrombosis and embolism; Z86.711 Personal history of pulmonary embolism; Z88.6 Allergy status to analgesic agent; Z88.9 Allergy status to unspecified drugs, medicaments and biological substances
CPT/HCPCS: 96376; 99284; 96372; 96361; 96374; 96375; 36415; 85025; 85652; 86140; 80053; 70450; S0119; J1170; J2060; J2405; J7030

== ENCOUNTER 2018-12-22 05:08 | Emergency (ER) | payer MEDICAID ==
[2018-12-22] MEDS ORDERED: ASPIRIN 81 MG TABLET, CHEWABLE PO ONE (05:36)
[2018-12-22] MEDS ORDERED: ONDANSETRON HCL INJ/PF 4 MG/2 ML SDV IV ONE (05:37)
[2018-12-22] MEDS ORDERED: MORPHINE SULFATE 10 MG/ML INJ IV ONE (05:37)
--- NOTE | 2018-12-22 05:44 | ER Document Report ---
ED Medical Screen (RME) - General Stated Complaint: CHEST PAIN Time Seen by Provider: 12/22/18 05:28 Primary Care Provider: MINOR RADFORD MD [Primary Care Provider] - Follow up as needed Notes: [facility] is a 28[facility] of chest pain and rapid heart rate. He has a history of factor V Leiden. He is on Xarelto and Plavix. Multiple DVTs and PEs in his lifetime. He did not get any relief from the nitroglycerin tablets given to him prior to arrival. I have treated and performed a rapid initial assessment of this patient. A comprehensive ED assessment and evaluation of the patient, analysis of test results and completion of medical decision making process will be conducted by additional ED providers. PHYSICAL EXAMINATION: GENERAL: Well-appearing. Looks uncomfortable. LUNGS: Breath sounds clear to auscultation bilaterally and equal. No wheezes rales or rhonchi. HEART: Regular rate and rhythm without murmurs, rubs, gallops. Extremities: No cyanosis, clubbing, or edema b/l. NEUROLOGICAL: Normal speech, normal gait. PSYCH: Normal mood, normal affect. TRAVEL OUTSIDE OF THE [place] IN LAST 30 DAYS: No - Related Data Allergies/Adverse Reactions: diphenhydramine HCl [From Benadryl] Allergy (Severe, Verified 04/22/18 09:11) Apnea haloperidol [From Haldol] Allergy (Severe, Verified 04/22/18 09:11) Rash, Apnea haloperidol lactate [From Haldol] Allergy (Severe, Verified 04/22/18 09:11) Rash, Apnea Heparin Analogues [Heparin Agents] Allergy (Severe, Verified 04/22/18 09:11) Anaphylaxis lamotrigine [From Lamictal] Allergy (Intermediate, Verified 04/22/18 09:55) rash enoxaparin sodium [From Lovenox] Allergy (Verified 04/22/18 09:11) Rash hydroxyzine HCl [From Vistaril] Allergy (Verified 04/22/18 09:11) Apnea hydroxyzine pamoate [From Vistaril] Allergy (Verified 04/22/18 09:11) Apnea ketorolac [From Toradol] Allergy (Verified 04/22/18 09:55) lidocaine [Lidocaine] Allergy (Verified 04/22/18 09:11) tramadol Allergy (Verified 04/22/18 09:55) paliperidone [From Invega] Adverse Reaction (Verified 04/22/18 09:11) Severe Hypertension propranolol [Propranolol] Adverse Reaction (Verified 04/22/18 09:11) Severe Hypotension warfarin sodium [From Coumadin] Adverse Reaction (Verified 04/22/18 09:11) "Did not work" onions Allergy (Severe, Uncoded 04/22/18 09:11) Anaphylaxis nicotine patch adhesive Allergy (Intermediate, Uncoded 04/22/18 09:11) Rash Past Medical History - Past Medical History Cardiac Medical History: Reports: Hx DVT, Hx Hypercholesterolemia, Hx Hypertension - on meds, Hx Pulmonary Embolism Denies: Hx Coronary Artery Disease, Hx Heart Attack Pulmonary Medical History: Reports: Hx Asthma - ON MEDS, Hx Pneumonia, Hx Sleep Apnea Denies: Hx Bronchitis, Hx COPD Neurological Medical History: Reports: Hx Seizures - on meds LAST SX 1YR AGO. Denies: Hx Cerebrovascular Accident Endocrine Medical History: Reports: Hx Hypothyroidism Renal/ Medical History: Denies: Hx Peritoneal Dialysis GI Medical History: Reports: Hx Gastroesophageal Reflux Disease Musculoskeltal Medical History: Denies Hx Arthritis Psychiatric Medical History: Reports: Hx Anxiety, Hx Bipolar Disorder, Hx Borderline Personality Disorder, Hx Depression, Hx Personality Disorder, Hx Schizoaffective Disorder, Hx Schizophrenia Traumatic Medical History: Reports: Hx Traumatic Brain Injury Past Surgical History: Reports: Hx Cardiac Surgery - cannot confirm, Hx Coronary Stent - cannot confirm - Immunizations Immunizations up to date: Yes Hx Diphtheria, Pertussis, Tetanus Vaccination: Yes History of Influenza Vaccine for 07/2017 - 12/2017 Season: Yes Influenza Administration Date for 07/2017 - 12/2017 Season: 07/12/18 Doctor's Discharge - Discharge Referrals: MINOR RADFORD MD [Primary Care Provider] - Follow up as needed
[2018-12-22 06:07] LABS: ABSOLUTE EOSINOPHILS # (AUTO) 0.2 10^3/uL (0.0-0.6); ABSOLUTE LYMPHOCYTES (AUTO) 2.1 10^3/uL (0.5-4.7); ABSOLUTE MONOCYTES (AUTO) 0.6 10^3/uL (0.1-1.4); ABSOLUTE NEUT (AUTO) 4.2 10^3/uL (1.7-8.2); BASOPHILS % (AUTO) 0.7 % (0-2); EOSINOPHILS % (AUTO) 2.6 % (0-6); HEMOGLOBIN 15.5 g/dL (13.5-17.0); LYMPHOCYTES % (AUTO) 29.7 % (13-45); MEAN CORPUSCULAR HEMOGLOBIN 27.1 pg (27.0-33.4); MEAN CORPUSCULAR HGB CONC 34.5 g/dL (32.0-36.0); MEAN CORPUSCULAR VOLUME 79 fl (80-97); PLATELET COUNT 221 10^3/uL (150-450); RED BLOOD COUNT 5.72 10^6/uL (4.35-5.55); RED CELL DISTRIBUTION WIDTH 13.7 % (11.5-14.0); TOTAL CELLS COUNTED % (AUTO) 100 %; WHITE BLOOD COUNT 7.1 10^3/uL (4.0-10.5)
--- NOTE | 2018-12-22 06:11 | RADIOLOGY REPORT (SQ) ---
EXAM DESCRIPTION: X-ray single view chest. CLINICAL HISTORY: 28 years Male, chest pain COMPARISON: 12/28/2014 TECHNIQUE: Single portable view of the chest performed on 12/22/2018 at 5:53 AM FINDINGS: The lungs are slightly hypoinflated and are clear. There is no evidence of a pneumothorax. The cardiac silhouette is normal in size and configuration. The mediastinal contours are normal. No acute osseous abnormality is identified. No focal soft tissue abnormalities are seen. Lines and tubes: None. IMPRESSION: No evidence of acute intrathoracic disease.
[2018-12-22 06:15] LABS: ALANINE AMINOTRANSFERASE 32 U/L (21-72); ALBUMIN 4.1 g/dL (3.5-5.0); ALKALINE PHOSPHATASE 87 U/L (38-126); ANION GAP 8 (5-19); ASPARTATE AMINO TRANSFERASE 22 U/L (17-59); BILIRUBIN,DIRECT 0.3 mg/dL (0.0-0.4); BILIRUBIN,TOTAL 0.4 mg/dL (0.2-1.3); BLOOD UREA NITROGEN 13 mg/dL (7-20); CALCIUM 9.1 mg/dL (8.4-10.2); CARBON DIOXIDE 29 mmol/L (22-30); CHLORIDE 109 mmol/L (98-107); GLUCOSE 92 mg/dL (75-110); POTASSIUM 4.1 mmol/L (3.6-5.0); SODIUM 145.8 mmol/L (137-145); TOTAL PROTEIN 6.5 g/dL (6.3-8.2)
--- NOTE | 2018-12-22 07:30 | EKG REPORT ---
SEVERITY:- ABNORMAL ECG - SINUS RHYTHM PROBABLE RIGHT VENTRICULAR HYPERTROPHY INFERIOR Q WAVES, PROBABLY NORMAL VARIATION : Confirmed by: Brian Pérez MD 22-Dec-2018 07:29:57
[2018-12-22 09:00] VITALS: BP 132/84
--- NOTE | 2019-02-07 07:31 | ER Document Report ---
Entered by LIAM MARTINI SCRIBE 12/22/18 0643 Acting as scribe for:SHRUTI DANIELS MD ED General - General Chief Complaint: Chest Pain Stated Complaint: CHEST PAIN Time Seen by Provider: 12/22/18 05:28 Primary Care Provider: MINOR RADFORD MD [ACTIVE STAFF] - Follow up as needed Mode of Arrival: Ambulatory Information source: Patient Notes: 28-year-old male with a history of factor V Leiden deficiency with history of PE/DVT on Xarelto and Plavix according to the E note that presents today with complaints of chest tightness with an elevated heart rate that began at 0330 this morning while the patient was sleeping. Upon further questioning, the patient states he was taken off both Xarelto and Plavix about x1.5 months ago because he switched primary care providers and the new provider "wanted him off of that medication for a while". Patient mentions that he has been taken Hydroxycut for the last 10 days for weight loss. Patient states the last time he took a dose was 1700 yesterday. Patient was given nitroglycerin on arrival here. Patient states that this did not change his pain but did cause a headache. Patient describes his pain in his chest now as a "tightness". Patient states it hurts to breathe "sometimes". Patient denies any new physical activity. Patient has been diagnosed with several mental health disorders in the past but he now states he was told he only has anxiety and depression and is currently taking Wellbutrin and Xanax. TRAVEL OUTSIDE OF THE [place] IN LAST 30 DAYS: No - Related Data Allergies/Adverse Reactions: diphenhydramine HCl [From Benadryl] Allergy (Severe, Verified 04/22/18 09:11) Apnea haloperidol [From Haldol] Allergy (Severe, Verified 04/22/18 09:11) Rash, Apnea haloperidol lactate [From Haldol] Allergy (Severe, Verified 04/22/18 09:11) Rash, Apnea Heparin Analogues [Heparin Agents] Allergy (Severe, Verified 04/22/18 09:11) Anaphylaxis lamotrigine [From Lamictal] Allergy (Intermediate, Verified 04/22/18 09:55) rash enoxaparin sodium [From Lovenox] Allergy (Verified 04/22/18 09:11) Rash hydroxyzine HCl [From Vistaril] Allergy (Verified 04/22/18 09:11) Apnea hydroxyzine pamoate [From Vistaril] Allergy (Verified 04/22/18 09:11) Apnea ketorolac [From Toradol] Allergy (Verified 04/22/18 09:55) lidocaine [Lidocaine] Allergy (Verified 04/22/18 09:11) tramadol Allergy (Verified 04/22/18 09:55) paliperidone [From Invega] Adverse Reaction (Verified 04/22/18 09:11) Severe Hypertension propranolol [Propranolol] Adverse Reaction (Verified 04/22/18 09:11) Severe Hypotension warfarin sodium [From Coumadin] Adverse Reaction (Verified 04/22/18 09:11) "Did not work" onions Allergy (Severe, Uncoded 04/22/18 09:11) Anaphylaxis nicotine patch adhesive Allergy (Intermediate, Uncoded 04/22/18 09:11) Rash Past Medical History - General Information source: Patient - Social History Smoking Status: Current Every Day Smoker Cigarette use (# per day): Yes - 1/4ppd Chew tobacco use (# tins/day): No Frequency of alcohol use: Rare Drug Abuse: None Family History: Reviewed & Not Pertinent, Other - father with CAD in his 50s and an unknown clotting disorder; uncle with unknown clotting disorder. Patient has suicidal ideation: No Patient has homicidal ideation: No - Past Medical History Cardiac Medical History: Reports: Hx DVT, Hx Hypertension - on meds, Hx Pulmonary Embolism - was on Xarelto and Plavix, taken off both Oct 2018 Pulmonary Medical History: Reports: Hx Asthma - ON MEDS, Hx Pneumonia, Hx Sleep Apnea Neurological Medical History: Reports: Hx Seizures - on depakote Endocrine Medical History: Reports: Hx Hypothyroidism GI Medical History: Reports: Hx Gastroesophageal Reflux Disease Psychiatric Medical History: Reports: Hx Anxiety, Hx Depression Traumatic Medical History: Reports: Hx Traumatic Brain Injury Past Surgical History: Reports: Hx Orthopedic Surgery - ORIF Left Ankle - Immunizations Immunizations up to date: Yes Hx Diphtheria, Pertussis, Tetanus Vaccination: Yes Hx Pneumococcal Vaccination: 10/31/13 Review of Systems - Review of Systems Constitutional: No symptoms reported EENT: No symptoms reported Cardiovascular: See HPI, Chest pain, Heart racing Respiratory: See HPI, Hurts to breathe Gastrointestinal: No symptoms reported Genitourinary: No symptoms reported Male Genitourinary: No symptoms reported Musculoskeletal: No symptoms reported Skin: No symptoms reported Hematologic/Lymphatic: No symptoms reported Neurological/Psychological: See HPI, Headaches - After nitroglycerin -: Yes All other systems reviewed and negative Physical Exam - Vital signs Vitals: Temp 98.9 F 12/22/18 05:10 - Notes Notes: Physical Exam: General: Alert, appears well. HEENT: Normocephalic. Atraumatic. PERRL. Extraocular movements intact. Oropharynx clear. Neck: Supple. Non-tender. Respiratory: No respiratory distress. Minimal left anterior chest wall tenderness to palpation. Clear and equal breath sounds bilaterally. Cardiovascular: Regular rate and rhythm. Abdominal: Obese. Non-tender. No distension. Normal Bowel Sounds. Back: Non-tender. No deformity or step off. Extremities: Moves all four extremities. Upper extremities: Normal inspection. Normal ROM. Lower extremities: Normal inspection. No edema. Normal ROM. Neurological: Normal cognition. AAOx4. Normal speech. Psychological: Normal affect. Normal Mood. Skin: Warm. Dry. Normal color. Course - Re-evaluation Re-evalutation: 12/22/18 07:51 According to the patient's history he has factor V Leiden deficiency. His Xarelto and Plavix was stopped about 6 weeks ago according to the patient, for reasons that are not quite clear. His d-dimer today is undetectable, so PE is an unlikely cause of his anterior chest pain. 12/22/18 08:36 After reviewing the negative lab work including the undetectable Depakote level, the patient does now report "intensive workout" recently that involved sit ups. I suspect this is what is causing his anterior chest wall pain. He has no explanation for the undetectable Depakote level. He states that his Xarelto was stopped when he started with his new physician because they are waiting to get old records before restarting it. He does have a history of DVT x3, pulmonary emboli x2, and suspect he should be on Xarelto for the rest of his life. I have advised the patient that he needs to go back to his providers, take all of his empty bottles, and get all of these concerns straightened out. - Vital Signs Vital signs: Temp Pulse Resp BP Pulse Ox 98.9 F 17 123/87 H 97 12/22/18 05:10 12/22/18 07:01 12/22/18 07:01 12/22/18 07:01 - Laboratory Result Diagrams: 12/22/18 05:24 12/22/18 05:24 Laboratory results interpreted by me: 12/22/18 12/22/18 12/22/18 05:24 05:24 05:24 RBC 5.72 H MCV 79 L Sodium 145.8 H Chloride 109 H Valproic Acid < 10.0 L - Diagnostic Test Radiology reviewed: Image reviewed, Reports reviewed - Chest x-ray is unremarkable. - EKG Interpretation by Me EKG shows normal: Sinus rhythm, [place], Intervals, ST-T Waves. abnormal: QRS Complexes - Inferior Q's, probably normal variation. Probable right ventricular hypertrophy. Rate: Normal - 87 Rhythm: NSR Discharge - Discharge Clinical Impression: Chest wall pain Condition: Stable Disposition: HOME, SELF-CARE Additional Instructions: Chest Wall Pain Your chest pain has been diagnosed as coming from the chest wall. This is often caused by straining the muscles or joints in the chest during physical activity, direct trauma, coughing, or vigorous vomiting. Persons with arthritis are especially prone to this type of pain, due to inflammation of the cartilage joints near the breast bone. Occasionally, no cause can be found. Rest from strenuous physical activity. This kind of chest pain is usually made worse by movement of the chest. Depending on the symptoms, we may prescribe medicine for pain, muscle relaxation, and antiinflammatory effects. If the pain is new, and seems to be due to muscle strain, cold packs can help. Otherwise, apply gentle warmth to the painful area for 15 minutes every hour or two. You should contact the doctor immediately if things change. Further evaluat ion is needed if you develop a fever or cough, if the nature of the pain changes, or if you become short of breath. Your evaluation today suggests that your pain may be related to the recent increase in exercise you have been doing. It does appear that you have musculoskeletal chest wall pain at this time. A D-Dimer which tests for blood clotting was undetectable. Your Depakote level was also undetectable. You should follow-up with your new provider and get back on the medications that you are supposed to be taking, including the Xarelto. Follow-up with your new primary care provider today if possible. RETURN TO THE EMERGENCY ROOM IF ANY NEW OR WORSENING SYMPTOMS. Referrals: [facility] [Provider Group] - 12/22/18 Scribe Attestation: 12/22/18 07:44 I personally performed the services described in the documentation, reviewed and edited the documentation which was dictated to the scribe in my presence, and it accurately records my words and actions. I personally performed the services described in the documentation, reviewed and edited the documentation which was dictated to the scribe in my presence, and it accurately records my words and actions.
== END 2018-12-22 09:00 | disposition home or self-care (01) ==
LOC: ER 05:08
DX: R07.9 Chest pain, unspecified (principal); R00.0 Tachycardia, unspecified; Z79.02 Long term (current) use of antithrombotics/antiplatelets; Z86.711 Personal history of pulmonary embolism; Z86.718 Personal history of other venous thrombosis and embolism; Z88.6 Allergy status to analgesic agent; E78.00 Pure hypercholesterolemia, unspecified; I10 Essential (primary) hypertension
CPT/HCPCS: 93005; 99285; 96374; 96375; 36415; 85025; 80053; 84484; 80164; 85379; 71045; 93010; J2270; J2405

== ENCOUNTER 2019-03-15 19:11 | Emergency (ER) | payer MEDICAID ==
[2019-03-15] MEDS ORDERED: METOCLOPRAMIDE HCL INJ/PF 10 MG/2 ML SDV IV ONE (23:22)
[2019-03-15] MEDS ORDERED: NORMAL SALINE 1000 ML 1,000 ML IV ONE (23:23)
[2019-03-15] MEDS ORDERED: HYDROMORPHONE HCL INJ/PF 2 MG/ML AMPULE IV ONE (23:23)
[2019-03-15] MEDS ORDERED: ACETAMINOPHEN 325 MG TABLET PO ONE (23:25)
--- NOTE | 2019-03-15 23:27 | ER Document Report ---
ED General - General Chief Complaint: Cold Symptoms Stated Complaint: FEVER Time Seen by Provider: 03/15/19 23:12 Mode of Arrival: Ambulatory Information source: Patient TRAVEL OUTSIDE OF THE [place] IN LAST 30 DAYS: No - HPI Patient complains to provider of: Fever, chills, nausea, body aches, headache Onset: Other - Approximately 16 hours Onset/Duration: Sudden Quality of pain: Achy, Sharp Severity: Severe Pain Level: 4 Associated symptoms: Body/muscle aches, Chills, Productive cough, Fever, Headache, Weakness Exacerbated by: Denies Relieved by: Denies Similar symptoms previously: No Recently seen / treated by doctor: No - Related Data Allergies/Adverse Reactions: diphenhydramine HCl [From Benadryl] Allergy (Severe, Verified 04/22/18 09:11) Apnea haloperidol [From Haldol] Allergy (Severe, Verified 04/22/18 09:11) Rash, Apnea haloperidol lactate [From Haldol] Allergy (Severe, Verified 04/22/18 09:11) Rash, Apnea Heparin Analogues [Heparin Agents] Allergy (Severe, Verified 04/22/18 09:11) Anaphylaxis lamotrigine [From Lamictal] Allergy (Intermediate, Verified 04/22/18 09:55) rash enoxaparin sodium [From Lovenox] Allergy (Verified 04/22/18 09:11) Rash hydroxyzine HCl [From Vistaril] Allergy (Verified 04/22/18 09:11) Apnea hydroxyzine pamoate [From Vistaril] Allergy (Verified 04/22/18 09:11) Apnea ketorolac [From Toradol] Allergy (Verified 04/22/18 09:55) lidocaine [Lidocaine] Allergy (Verified 04/22/18 09:11) tramadol Allergy (Verified 04/22/18 09:55) paliperidone [From Invega] Adverse Reaction (Verified 04/22/18 09:11) Severe Hypertension propranolol [Propranolol] Adverse Reaction (Verified 04/22/18 09:11) Severe Hypotension warfarin sodium [From Coumadin] Adverse Reaction (Verified 04/22/18 09:11) "Did not work" onions Allergy (Severe, Uncoded 04/22/18 09:11) Anaphylaxis nicotine patch adhesive Allergy (Intermediate, Uncoded 04/22/18 09:11) Rash Past Medical History - General Information source: Patient - Social History Smoking Status: Smoker,Current Status Unk Family History: Reviewed & Not Pertinent, Other - father with CAD in his 50s and an unknown clotting disorder; uncle with unknown clotting disorder. - Past Medical History Cardiac Medical History: Reports: Hx DVT, Hx Hypercholesterolemia, Hx Hypertension - on meds, Hx Pulmonary Embolism - was on Xarelto and Plavix, taken off both Oct 2018 Denies: Hx Coronary Artery Disease, Hx Heart Attack Pulmonary Medical History: Reports: Hx Asthma - ON MEDS, Hx Pneumonia, Hx Sleep Apnea Denies: Hx Bronchitis, Hx COPD Neurological Medical History: Reports: Hx Seizures - on depakote. Denies: Hx Cerebrovascular Accident Endocrine Medical History: Reports: Hx Hypothyroidism Renal/ Medical History: Denies: Hx Peritoneal Dialysis GI Medical History: Reports: Hx Gastroesophageal Reflux Disease Musculoskeletal Medical History: Denies Hx Arthritis, Denies Hx Systemic Lupus Erythematosus Psychiatric Medical History: Reports: Hx Anxiety, Hx Bipolar Disorder, Hx Borderline Personality Disorder, Hx Depression, Hx Personality Disorder, Hx Schizoaffective Disorder, Hx Schizophrenia Traumatic Medical History: Reports: Hx Traumatic Brain Injury Past Surgical History: Reports: Hx Cardiac Surgery - cannot confirm, Hx Coronary Stent - cannot confirm, Hx Orthopedic Surgery - ORIF Left Ankle - Immunizations Immunizations up to date: Yes Hx Diphtheria, Pertussis, Tetanus Vaccination: Yes Hx Pneumococcal Vaccination: 10/31/13 Review of Systems - Review of Systems Notes: Constitutional: Positive for fevers, chills, myalgias, and malaise EENT: No eye redness. No eye pain. No ear pain. No sore throat. Cardiovascular: No chest pain. No palpitations. Positive for chest tightness with cough Respiratory: Positive for cough. No shortness of breath. No respiratory distress. Gastrointestinal: No abdominal pain. No nausea, vomiting, or diarrhea. Genitourinary: Atraumatic. No lesions. No pain. No discharge. Musculoskeletal: Atraumatic. No swelling. No deformities. Skin: No rash or lesions. Lymphatic: No swollen lymph nodes. Neurologic: No headache. No syncope. Psychiatric: No suicidal or homicidal ideation. Physical Exam - Vital signs Vitals: Temp Pulse Resp BP Pulse Ox 100.2 F 91 16 147/99 H 100 03/15/19 20:17 03/15/19 20:17 03/15/19 20:17 03/15/19 20:17 03/15/19 20:17 - Notes Notes: General: Well-developed, well-nourished. In no acute distress. Non-toxic appearing. Malaised Cardiac: Well-perfused. Regular rate and rhythm. No murmurs, rubs, or gallops. Pulmonary: No respiratory distress. No cyanosis. Bilateral lung aguirre are clear to auscultation. Abdominal: Non-distended. Non-rigid. Bowels sounds are present in all four quadrants. No guarding or rebound. HEENT: Head is atraumatic. Conjunctivae not reddened. No tearing. PERRL. EOMI. Orbits atraumatic. No periorbital swelling or erythema. Oropharynx is without erythema, swelling, or exudates. Neck: Supple. No adenopathy. No meningismus. Dermatologic: Warm with good turgor. No rash. Atraumatic. Chest: Atraumatic. No chest wall tenderness to palpation. Musculoskeletal: Moves all extremities well. No range of motion deficits. no muscular or joint tenderness. No paraspinal muscle tenderness. no midline spinal tenderness or step-off. Genitourinary: Examination deferred Neurologic: No gross neurologic deficits. Psychiatric: Normal mood. Course - Re-evaluation Re-evalutation: 03/15/19 23:27 Probable viral syndrome. Will check influenza. Fluids, pain and nausea medicine 03/16/19 01:29 Headache resolved. Feeling better after fluids. Will discharge home with viral syndrome - Vital Signs Vital signs: Temp Pulse Resp BP Pulse Ox 100.2 F 91 16 147/99 H 100 03/15/19 20:17 03/15/19 20:17 03/15/19 20:17 03/15/19 20:17 03/15/19 20:17 Discharge - Discharge Clinical Impression: Viral syndrome, Elevated blood pressure reading Condition: Good Disposition: HOME, SELF-CARE Instructions: Acetaminophen, Fever ([facility]), Viral Syndrome ([facility]) Additional Instructions: Tylenol and ibuprofen for body aches and fever. [place] tablet every 6 hours as needed for severe pain with Zofran as needed for nausea. Forms: Elevated Blood Pressure Referrals: [facility] [Provider Group] - Follow up as needed
[2019-03-16 01:02] LABS: A TYPE INFLUENZA AG NEGATIVE (NEGATIVE); B INFLUENZA AG NEGATIVE (NEGATIVE)
[2019-03-16 01:30] VITALS: BP 133/74
[2019-03-16] MEDS ORDERED: HYDROCODONE/ACETAMINOPHEN 5-325 MG (6 TAB/ER DISP) PO PRN (01:32)
[2019-03-16] MEDS ORDERED: ONDANSETRON ODT 4 MG TAB (6 TAB/ER DISP) PO PRN (01:32)
== END 2019-03-16 01:45 | disposition home or self-care (01) ==
LOC: ER 19:11
DX: B34.9 Viral infection, unspecified (principal); R50.9 Fever, unspecified; R11.0 Nausea; M79.10 Myalgia, unspecified site; R53.1 Weakness; R51 Headache; R53.81 Other malaise; R05 Cough; I10 Essential (primary) hypertension; J45.909 Unspecified asthma, uncomplicated; Z87.892 Personal history of anaphylaxis; Z88.8 Allergy status to other drugs, medicaments and biological substances; Z91.018 Allergy to other foods; Z88.4 Allergy status to anesthetic agent; Z88.5 Allergy status to narcotic agent; Z87.01 Personal history of pneumonia (recurrent)
CPT/HCPCS: 99283; 96361; 96374; 96375; 87804; J3490; J2765; J1170; J7030

== ENCOUNTER 2019-03-24 12:50 | Emergency (ER) | payer MEDICAID ==
[2019-03-24 12:57] VITALS: BP 149/91
--- NOTE | 2019-03-24 13:06 | ER Document Report ---
ED Medical Screen (RME) - General Chief Complaint: Abscess Stated Complaint: POSSIBLE ABCESS Time Seen by Provider: 03/24/19 13:03 Mode of Arrival: Ambulatory Information source: Patient Notes: 28-year-old male presents to ED for an abscess to the right upper back. He states is been there a while but is getting worse and more painful. Patient is alert oriented respirations regular and unlabored. He states he does have a history of MRSA. I have greeted and performed a rapid initial assessment of this patient. A comprehensive ED assessment and evaluation of the patient, analysis of test results and completion of medical decision making process will be conducted by an additional ED providers. Dictation of this chart was performed using voice recognition software; therefore, there may be some unintended grammatical errors. TRAVEL OUTSIDE OF THE [place] IN LAST 30 DAYS: No - Related Data Allergies/Adverse Reactions: diphenhydramine HCl [From Benadryl] Allergy (Severe, Verified 04/22/18 09:11) Apnea haloperidol [From Haldol] Allergy (Severe, Verified 04/22/18 09:11) Rash, Apnea haloperidol lactate [From Haldol] Allergy (Severe, Verified 04/22/18 09:11) Rash, Apnea Heparin Analogues [Heparin Agents] Allergy (Severe, Verified 04/22/18 09:11) Anaphylaxis lamotrigine [From Lamictal] Allergy (Intermediate, Verified 04/22/18 09:55) rash cephalexin [From Keflex] Allergy (Verified 03/24/19 12:54) enoxaparin sodium [From Lovenox] Allergy (Verified 04/22/18 09:11) Rash hydroxyzine HCl [From Vistaril] Allergy (Verified 04/22/18 09:11) Apnea hydroxyzine pamoate [From Vistaril] Allergy (Verified 04/22/18 09:11) Apnea ketorolac [From Toradol] Allergy (Verified 04/22/18 09:55) lidocaine [Lidocaine] Allergy (Verified 04/22/18 09:11) tramadol Allergy (Verified 04/22/18 09:55) paliperidone [From Invega] Adverse Reaction (Verified 04/22/18 09:11) Severe Hypertension propranolol [Propranolol] Adverse Reaction (Verified 04/22/18 09:11) Severe Hypotension warfarin sodium [From Coumadin] Adverse Reaction (Verified 04/22/18 09:11) "Did not work" onions Allergy (Severe, Uncoded 04/22/18 09:11) Anaphylaxis nicotine patch adhesive Allergy (Intermediate, Uncoded 04/22/18 09:11) Rash Past Medical History - Past Medical History Cardiac Medical History: Reports: Hx DVT, Hx Hypercholesterolemia, Hx Hypertension - on meds, Hx Pulmonary Embolism - was on Xarelto and Plavix, taken off both Oct 2018 Denies: Hx Coronary Artery Disease, Hx Heart Attack Pulmonary Medical History: Reports: Hx Asthma - ON MEDS, Hx Pneumonia, Hx Sleep Apnea Denies: Hx Bronchitis, Hx COPD Neurological Medical History: Reports: Hx Seizures - on depakote. Denies: Hx Cerebrovascular Accident Endocrine Medical History: Reports: Hx Hypothyroidism Renal/ Medical History: Denies: Hx Peritoneal Dialysis GI Medical History: Reports: Hx Gastroesophageal Reflux Disease Musculoskeltal Medical History: Denies Hx Arthritis, Denies Hx Systemic Lupus Erythematosus Psychiatric Medical History: Reports: Hx Anxiety, Hx Bipolar Disorder, Hx Borderline Personality Disorder, Hx Depression, Hx Personality Disorder, Hx Schizoaffective Disorder, Hx Schizophrenia Traumatic Medical History: Reports: Hx Traumatic Brain Injury Past Surgical History: Reports: Hx Cardiac Surgery - cannot confirm, Hx Coronary Stent - cannot confirm, Hx Orthopedic Surgery - ORIF Left Ankle - Immunizations Immunizations up to date: Yes Hx Diphtheria, Pertussis, Tetanus Vaccination: Yes History of Influenza Vaccine for 07/2017 - 12/2017 Season: Yes Influenza Administration Date for 07/2017 - 12/2017 Season: 07/12/18 Physical Exam - Vital signs Vitals: Temp Pulse Resp BP Pulse Ox 99.4 F 82 20 149/91 H 96 03/24/19 12:55 03/24/19 12:55 03/24/19 12:55 03/24/19 12:55 03/24/19 12:55 Course - Vital Signs Vital signs: Temp Pulse Resp BP Pulse Ox 99.4 F 82 20 149/91 H 96 03/24/19 12:55 03/24/19 12:55 03/24/19 12:55 03/24/19 12:55 03/24/19 12:55
[2019-03-24] MEDS ORDERED: ONDANSETRON 4 MG TAB.RAPDIS PO ONE (14:40)
[2019-03-24] MEDS ORDERED: FENTANYL CITRATE INJ/PF 100 MCG/2 ML AMPUL IV ONE (14:40)
--- NOTE | 2019-03-24 14:44 | ER Document Report ---
ED Skin Rash/Insect Bite/Abscs - General Chief Complaint: Abscess Stated Complaint: POSSIBLE ABCESS Time Seen by Provider: 03/24/19 13:03 Mode of Arrival: Ambulatory Information source: Patient TRAVEL OUTSIDE OF THE [place] IN LAST 30 DAYS: No - HPI Patient complains to provider of: Tender/swollen area Notes: Patient here with tender swollen area to the right upper back. Patient has a history of MRSA in the past. States that he is always had a small lump in this area for the last several months but over the last few days is gotten red, swollen and painful. No drainage. Is here last week with fever, but states the fever has since resolved. He denies any nausea, vomiting, diarrhea at this time. No other rash. No chest pain or shortness of breath. Pain is constant, moderate to severe, worse with palpation, better with rest. He denies any other complaints at this time. Patient has an extensive allergy list. He is allergic to all anesthetics as well as Benadryl. - Related Data Allergies/Adverse Reactions: diphenhydramine HCl [From Benadryl] Allergy (Severe, Verified 04/22/18 09:11) Apnea haloperidol [From Haldol] Allergy (Severe, Verified 04/22/18 09:11) Rash, Apnea haloperidol lactate [From Haldol] Allergy (Severe, Verified 04/22/18 09:11) Rash, Apnea Heparin Analogues [Heparin Agents] Allergy (Severe, Verified 04/22/18 09:11) Anaphylaxis lamotrigine [From Lamictal] Allergy (Intermediate, Verified 04/22/18 09:55) rash cephalexin [From Keflex] Allergy (Verified 03/24/19 12:54) enoxaparin sodium [From Lovenox] Allergy (Verified 04/22/18 09:11) Rash hydroxyzine HCl [From Vistaril] Allergy (Verified 04/22/18 09:11) Apnea hydroxyzine pamoate [From Vistaril] Allergy (Verified 04/22/18 09:11) Apnea ketorolac [From Toradol] Allergy (Verified 04/22/18 09:55) lidocaine [Lidocaine] Allergy (Verified 04/22/18 09:11) tramadol Allergy (Verified 04/22/18 09:55) paliperidone [From Invega] Adverse Reaction (Verified 04/22/18 09:11) Severe Hypertension propranolol [Propranolol] Adverse Reaction (Verified 04/22/18 09:11) Severe Hypotension warfarin sodium [From Coumadin] Adverse Reaction (Verified 04/22/18 09:11) "Did not work" onions Allergy (Severe, Uncoded 04/22/18 09:11) Anaphylaxis nicotine patch adhesive Allergy (Intermediate, Uncoded 04/22/18 09:11) Rash Past Medical History - General Information source: Patient - Social History Smoking Status: Never Smoker Chew tobacco use (# tins/day): No Frequency of alcohol use: None Drug Abuse: None Family History: Reviewed & Not Pertinent, Other - father with CAD in his 50s and an unknown clotting disorder; uncle with unknown clotting disorder. Patient has suicidal ideation: No Patient has homicidal ideation: No - Past Medical History Cardiac Medical History: Reports: Hx DVT, Hx Hypercholesterolemia, Hx Hypertension - on meds, Hx Pulmonary Embolism - was on Xarelto and Plavix, taken off both Oct 2018 Denies: Hx Coronary Artery Disease, Hx Heart Attack Pulmonary Medical History: Reports: Hx Asthma - ON MEDS, Hx Pneumonia, Hx Sleep Apnea Denies: Hx Bronchitis, Hx COPD Neurological Medical History: Reports: Hx Seizures - on depakote. Denies: Hx Cerebrovascular Accident Endocrine Medical History: Reports: Hx Hypothyroidism Renal/ Medical History: Denies: Hx Peritoneal Dialysis GI Medical History: Reports: Hx Gastroesophageal Reflux Disease Musculoskeletal Medical History: Denies Hx Arthritis, Denies Hx Systemic Lupus Erythematosus Psychiatric Medical History: Reports: Hx Anxiety, Hx Bipolar Disorder, Hx Borderline Personality Disorder, Hx Depression, Hx Personality Disorder, Hx Schizoaffective Disorder, Hx Schizophrenia Traumatic Medical History: Reports: Hx Traumatic Brain Injury Past Surgical History: Reports: Hx Cardiac Surgery - cannot confirm, Hx Coronary Stent - cannot confirm, Hx Orthopedic Surgery - ORIF Left Ankle - Immunizations Immunizations up to date: Yes Hx Diphtheria, Pertussis, Tetanus Vaccination: Yes Hx Pneumococcal Vaccination: 10/31/13 Review of Systems - Review of Systems -: Yes All other systems reviewed and negative Physical Exam - Vital signs Vitals: Temp Pulse Resp BP Pulse Ox 99.4 F 82 20 149/91 H 96 03/24/19 12:55 03/24/19 12:55 03/24/19 12:55 03/24/19 12:55 03/24/19 12:55 - Notes Notes: GENERAL: alert, cooperative, nontoxic, no distress. HEAD: normocephalic, atraumatic EYES: conjunctiva pink without discharge, no external redness or swelling. EARS: no external swelling, no external redness NOSE: atraumatic, no external swelling MOUTH/THROAT: mucous membranes moist and pink NECK: soft, supple, full range of motion, no meningismus. CHEST: no distress, lungs clear and equal throughout. No wheezing, rales, rhonchi. CARDIAC: regular rate and rhythm, no murmur, normal capillary refill, normal pulses. BACK: full range of motion, no CVA tenderness. EXTREMITIES: full range of motion of all extremities. No redness, no swelling. NEURO: alert and oriented 3, no focal deficits, full range of motion of all extremities. PYSCH: appropriate mood, affect. Patient is cooperative. SKIN: pink, warm, dry, no rash. 2 cm fluctuant erythematous tender abscess to the right upper back with a few small pustules. No significant surrounding erythema. Course - Re-evaluation Re-evalutation: 03/24/19 15:18 Patient is nontoxic-appearing with stable vitals. Patient here with complaints of swollen tender area to the right upper back. States that it started a few months ago but became more painful red and swollen over the last few days. He appears to potentially have an infected sebaceous cyst. Patient has an extensive allergy list and is allergic to all anesthetics is also allergic to Benadryl. He was given an IM injection of fentanyl for pain control and attempted to both aspirate with an 18-gauge needle as well as make a small incision with a scalpel. Small amount of purulent drainage was expressed. Patient will be discharged home with a prescription for clindamycin a very small supply of [facility] with instructions to apply warm compresses to the sore area. Follow-up if he has any increasing pain, fever, redness, swelling or any further concerns. It is possible that if this worsens that the patient may end up requiring a sedation in order to have further I&D performed, but at this point the area does not seem to be significantly fluctuant, therefore I do not believe that sedation today would be of significant benefit. Patient is in agreements with watching this closely and returning if this worsens in any way. The patient's emergency department workup and current diagnosis were explained to the patient and or family. Follow-up instructions were provided. Medications if prescribed were discussed. Instructions for when to return to the emergency department including specific worrisome symptoms were discussed with the patient and/or family. - Vital Signs Vital signs: Temp Pulse Resp BP Pulse Ox 99.4 F 82 20 149/91 H 96 03/24/19 12:55 03/24/19 12:55 03/24/19 12:55 03/24/19 12:55 03/24/19 12:55 Procedures - Incision and Drainage RIGHT UPPER BACK Type: Simple Blade size: 11 I&D procedure: Betadine prep applied Incision Method: Incision made by scalpel Amount/type of drainage: SMALL PURULENT Discharge - Discharge Clinical Impression: Abscess of upper back excluding scapular region Condition: Stable Disposition: HOME, SELF-CARE Instructions: Post Incision and Drainage, Oral Narcotic Medication ([facility]), Abscess ([facility]) Additional Instructions: Take medication as prescribed. Apply warm compresses to the sore area. Follow- up if it is not improved in the next 48 hours, follow-up sooner for significant increase in pain, fever, redness, swelling, any further concerns. Prescriptions: Clindamycin HCl [Cleocin 300 mg Capsule] 300 mg PO QID #40 capsule Hydrocodone/Acetaminophen [Olpe 5-325 mg Tablet] 1 tab PO Q6H PRN #6 tab PRN Reason: Forms: Elevated Blood Pressure, Smoking Cessation Education Referrals: DONTAE ROMERO MD [TONY AGUIRRE] - Follow up as needed
== END 2019-03-24 15:35 | disposition home or self-care (01) ==
LOC: ER 12:50
PROC: 0H96XZZ Drainage of Back Skin, External Approach (ICD-10-PCS; principal; 2019-03-24)
DX: L02.212 Cutaneous abscess of back [any part, except buttock and flank] (principal); I10 Essential (primary) hypertension; Z79.899 Other long term (current) drug therapy; J45.909 Unspecified asthma, uncomplicated
CPT/HCPCS: 99283; 10060; S0119; J3010

== ENCOUNTER 2019-09-11 21:17 | Emergency (ER) | payer MEDICAID ==
--- NOTE | 2019-09-11 21:54 | ER Document Report ---
ED General - General Chief Complaint: Leg Pain Stated Complaint: LEFT LEG SWELLING/PAIN Time Seen by Provider: 09/11/19 21:54 Primary Care Provider: THONY ALANIS MD [Primary Care Provider] - Follow up as needed TRAVEL OUTSIDE OF THE [place] IN LAST 30 DAYS: No - HPI Patient complains to provider of: leg pain Notes: 29 y/o presenting to ED for evaluation of left leg pain ongoing for about 2 week time period he reports a hypercoagulable state with recurrent dvt/pe he is intolerant of coumdin/lovenox/heparin he is currently on xarelto and plavix he denies chest pain or shortness of breath he states he primarily came to the ED because he could not see his doctor and his work wanted him evaluated secondary to ongoing complaint of pain he denies skin color change to leg or fever he states this feels like a throbbing pain in mid thigh to calf he has not fallen or injured himself in any way - Related Data Allergies/Adverse Reactions: diphenhydramine HCl [From Benadryl] Allergy (Severe, Verified 04/22/18 09:11) Apnea haloperidol [From Haldol] Allergy (Severe, Verified 04/22/18 09:11) Rash, Apnea haloperidol lactate [From Haldol] Allergy (Severe, Verified 04/22/18 09:11) Rash, Apnea Heparin Analogues [Heparin Agents] Allergy (Severe, Verified 04/22/18 09:11) Anaphylaxis lamotrigine [From Lamictal] Allergy (Intermediate, Verified 04/22/18 09:55) rash cephalexin [From Keflex] Allergy (Verified 03/24/19 12:54) enoxaparin sodium [From Lovenox] Allergy (Verified 04/22/18 09:11) Rash hydroxyzine HCl [From Vistaril] Allergy (Verified 04/22/18 09:11) Apnea hydroxyzine pamoate [From Vistaril] Allergy (Verified 04/22/18 09:11) Apnea ketorolac [From Toradol] Allergy (Verified 04/22/18 09:55) lidocaine [Lidocaine] Allergy (Verified 04/22/18 09:11) tramadol Allergy (Verified 04/22/18 09:55) paliperidone [From Invega] Adverse Reaction (Verified 04/22/18 09:11) Severe Hypertension propranolol [Propranolol] Adverse Reaction (Verified 04/22/18 09:11) Severe Hypotension warfarin sodium [From Coumadin] Adverse Reaction (Verified 04/22/18 09:11) "Did not work" onions Allergy (Severe, Uncoded 04/22/18 09:11) Anaphylaxis nicotine patch adhesive Allergy (Intermediate, Uncoded 04/22/18 09:11) Rash Past Medical History - Social History Smoking Status: Unknown if Ever Smoked Family History: Reviewed & Not Pertinent, Other - father with CAD in his 50s and an unknown clotting disorder; uncle with unknown clotting disorder. - Past Medical History Cardiac Medical History: Reports: Hx DVT, Hx Hypercholesterolemia, Hx Hypertension - on meds, Hx Pulmonary Embolism - was on Xarelto and Plavix, taken off both Oct 2018 Denies: Hx Coronary Artery Disease, Hx Heart Attack Pulmonary Medical History: Reports: Hx Asthma - ON MEDS, Hx Pneumonia, Hx Sleep Apnea Denies: Hx Bronchitis, Hx COPD Neurological Medical History: Reports: Hx Seizures - on depakote. Denies: Hx Cerebrovascular Accident, Hx Parkinson's Disease Endocrine Medical History: Reports: Hx Hypothyroidism Renal/ Medical History: Denies: Hx Peritoneal Dialysis GI Medical History: Reports: Hx Gastroesophageal Reflux Disease Musculoskeletal Medical History: Denies Hx Arthritis, Denies Hx Systemic Lupus Erythematosus Psychiatric Medical History: Reports: Hx Anxiety, Hx Bipolar Disorder, Hx Borderline Personality Disorder, Hx Depression, Hx Personality Disorder, Hx Schizoaffective Disorder, Hx Schizophrenia Traumatic Medical History: Reports: Hx Traumatic Brain Injury Past Surgical History: Reports: Hx Cardiac Surgery - cannot confirm, Hx Coronary Stent - cannot confirm, Hx Orthopedic Surgery - ORIF Left Ankle - Immunizations Immunizations up to date: Yes Hx Diphtheria, Pertussis, Tetanus Vaccination: Yes Hx Pneumococcal Vaccination: 10/31/13 Review of Systems - Review of Systems Constitutional: No symptoms reported EENT: No symptoms reported Cardiovascular: No symptoms reported Respiratory: No symptoms reported Gastrointestinal: No symptoms reported Genitourinary: No symptoms reported Male Genitourinary: No symptoms reported Musculoskeletal: Leg swelling, Other - leg pain Skin: No symptoms reported Hematologic/Lymphatic: No symptoms reported Neurological/Psychological: No symptoms reported Physical Exam - Vital signs Interpretation: Normal - General General appearance: Appears well, Alert - HEENT Head: Normocephalic, Atraumatic Eyes: Normal Pupils: PERRL - Respiratory Respiratory status: No respiratory distress Chest status: Nontender Breath sounds: Normal Chest palpation: Normal - Cardiovascular Rhythm: Regular Heart sounds: Normal auscultation Murmur: No - Abdominal Inspection: Normal Distension: No distension Bowel sounds: Normal Tenderness: Nontender Organomegaly: No organomegaly - Back Back: Normal, Nontender - Extremities General upper extremity: Normal inspection, Nontender, Normal color, Normal ROM, Normal temperature General lower extremity: Normal inspection, Tender - left calf mildly tender w/ mild edema. good pulses present. no cellulitic changes, Edema, Normal color, Normal ROM, Normal temperature, Normal weight bearing. No: Zack's sign - Neurological Neuro grossly intact: Yes Cognition: Normal Orientation: AAOx4 Frankenmuth Coma Scale Eye Opening: Spontaneous Frank[place]muth Coma Scale Verbal: Oriented Amy Coma Scale Motor: Obeys Commands Amy Coma Scale Total: 15 Speech: Normal Motor strength normal: LUE, RUE, LLE, RLE Sensory: Normal - Psychological Associated symptoms: Normal affect, Normal mood - Skin Skin Temperature: Warm Skin Moisture: Dry Skin Color: Normal Course - Re-evaluation Re-evalutation: 09/11/19 22:58 US is unavailable after hours discussed with patient that he is on xarelto and plavix and it sounds like those are his only options for treatment he has refused IVC filter and states he still does not want to pursue one at this time he denies chest pain or sob to suggest pe i have offered him pain medication and will check his labs for electrolytes given history of hyponatremia and other electrolyte disturbances he states he would prefer to return during business hours for US rather than wait in the ED until the study can be completed 09/12/19 00:09 patient reports feeling better after percocet discussed compliant w/ antiplatelet and anticoagulation - Laboratory Result Diagrams: 09/11/19 23:10 09/11/19 23:10 Laboratory results interpreted by me: 09/11/19 09/11/19 23:10 23:10 RDW 14.2 H Chloride 110 H Creatine Kinase 262 H Discharge - Discharge Clinical Impression: Leg pain, left Condition: Stable Disposition: HOME, SELF-CARE Instructions: Leg Pain Nonspecific ([facility]), Possible Evolving Leg DVT ([facility]) Additional Instructions: follow up with primary doctor as an outpatient return to the ED with worsening and consider returning for ultrasound evaluation of your leg if desired Prescriptions: Oxycodone HCl/Acetaminophen [Percocet 5-325 mg Tablet] 1 - 2 tab PO Q6HP PRN #6 tablet PRN Reason: Referrals: THONY ALANIS MD [Primary Care Provider] - Follow up as needed
[2019-09-11] MEDS ORDERED: OXYCODONE-ACETAMINOPHEN 5-325 MG TABLET PO ONE (22:44)
[2019-09-11 23:21] LABS: ABSOLUTE EOSINOPHILS # (AUTO) 0.1 10^3/uL (0.0-0.6); ABSOLUTE LYMPHOCYTES (AUTO) 1.8 10^3/uL (0.5-4.7); ABSOLUTE MONOCYTES (AUTO) 0.5 10^3/uL (0.1-1.4); ABSOLUTE NEUT (AUTO) 4.6 10^3/uL (1.7-8.2); BASOPHILS % (AUTO) 0.6 % (0-2); EOSINOPHILS % (AUTO) 1.8 % (0-6); HEMATOCRIT 43.5 % (37.9-51.0); LYMPHOCYTES % (AUTO) 24.8 % (13-45); MEAN CORPUSCULAR HEMOGLOBIN 27.6 pg (27.0-33.4); MEAN CORPUSCULAR HGB CONC 34.4 g/dL (32.0-36.0); MEAN CORPUSCULAR VOLUME 80 fl (80-97); MONOCYTES % (AUTO) 7.6 % (3-13); PLATELET COUNT 225 10^3/uL (150-450); RED BLOOD COUNT 5.41 10^6/uL (4.35-5.55); RED CELL DISTRIBUTION WIDTH 14.2 % (11.5-14.0); SEGMENTED NEUTROPHILS % (AUTO) 65.2 % (42-78); TOTAL CELLS COUNTED % (AUTO) 100 %; WHITE BLOOD COUNT 7.1 10^3/uL (4.0-10.5)
[2019-09-11 23:42] LABS: ANION GAP 10 (5-19); BLOOD UREA NITROGEN 10 mg/dL (7-20); CALCIUM 9.6 mg/dL (8.4-10.2); CARBON DIOXIDE 24 mmol/L (22-30); CHLORIDE 110 mmol/L (98-107); CREATINE KINASE 262 U/L (55-170); GLUCOSE 93 mg/dL (75-110); POTASSIUM 3.9 mmol/L (3.6-5.0)
[2019-09-12 00:22] VITALS: BP 128/69
== END 2019-09-12 00:22 | disposition home or self-care (01) ==
LOC: ER 21:17
DX: M79.605 Pain in left leg (principal); M79.89 Other specified soft tissue disorders; E03.9 Hypothyroidism, unspecified; Z86.711 Personal history of pulmonary embolism; Z86.718 Personal history of other venous thrombosis and embolism; Z79.01 Long term (current) use of anticoagulants; Z87.820 Personal history of traumatic brain injury
CPT/HCPCS: 36415; 80048; 82550; 85025

== ENCOUNTER 2019-10-01 16:35 | Emergency (ER) | payer MEDICAID ==
--- NOTE | 2019-10-01 17:15 | ER Document Report ---
ED Medical Screen (RME) - General Chief Complaint: Leg Pain Stated Complaint: LEFT LEG PAIN Time Seen by Provider: 10/01/19 17:07 Primary Care Provider: THONY ALANIS MD [Primary Care Provider] - Follow up as needed Mode of Arrival: Ambulatory Information source: Patient Notes: Patient presents complaining of left lower extremity pain and swelling for the past month. Patient denies any injury. Patient does report extensive history of multiple PEs and DVTs in the past despite being on anticoagulants. Patient reports history of factor V Leiden. Patient is currently on Xarelto. I have greeted and performed a rapid initial assessment of this patient. A comprehensive ED assessment and evaluation of the patient, analysis of test results and completion of the medical decision making process will be conducted by additional ED providers. TRAVEL OUTSIDE OF THE [place] IN LAST 30 DAYS: No - Related Data Allergies/Adverse Reactions: diphenhydramine HCl [From Benadryl] Allergy (Severe, Verified 04/22/18 09:11) Apnea haloperidol [From Haldol] Allergy (Severe, Verified 04/22/18 09:11) Rash, Apnea haloperidol lactate [From Haldol] Allergy (Severe, Verified 04/22/18 09:11) Rash, Apnea Heparin Analogues [Heparin Agents] Allergy (Severe, Verified 04/22/18 09:11) Anaphylaxis lamotrigine [From Lamictal] Allergy (Intermediate, Verified 04/22/18 09:55) rash cephalexin [From Keflex] Allergy (Verified 03/24/19 12:54) enoxaparin sodium [From Lovenox] Allergy (Verified 04/22/18 09:11) Rash hydroxyzine HCl [From Vistaril] Allergy (Verified 04/22/18 09:11) Apnea hydroxyzine pamoate [From Vistaril] Allergy (Verified 04/22/18 09:11) Apnea ketorolac [From Toradol] Allergy (Verified 04/22/18 09:55) lidocaine [Lidocaine] Allergy (Verified 04/22/18 09:11) tramadol Allergy (Verified 04/22/18 09:55) paliperidone [From Invega] Adverse Reaction (Verified 04/22/18 09:11) Severe Hypertension propranolol [Propranolol] Adverse Reaction (Verified 04/22/18 09:11) Severe Hypotension warfarin sodium [From Coumadin] Adverse Reaction (Verified 04/22/18 09:11) "Did not work" onions Allergy (Severe, Uncoded 04/22/18 09:11) Anaphylaxis nicotine patch adhesive Allergy (Intermediate, Uncoded 04/22/18 09:11) Rash Past Medical History - Past Medical History Cardiac Medical History: Reports: Hx DVT, Hx Hypercholesterolemia, Hx Hypertension - on meds, Hx Pulmonary Embolism - was on Xarelto and Plavix, taken off both Oct 2018 Denies: Hx Coronary Artery Disease, Hx Heart Attack Pulmonary Medical History: Reports: Hx Asthma - ON MEDS, Hx Pneumonia, Hx Sleep Apnea Denies: Hx Bronchitis, Hx COPD Neurological Medical History: Reports: Hx Seizures - on depakote. Denies: Hx Cerebrovascular Accident, Hx Parkinson's Disease Endocrine Medical History: Reports: Hx Hypothyroidism Renal/ Medical History: Denies: Hx Peritoneal Dialysis GI Medical History: Reports: Hx Gastroesophageal Reflux Disease Musculoskeltal Medical History: Denies Hx Arthritis, Denies Hx Systemic Lupus Erythematosus Psychiatric Medical History: Reports: Hx Anxiety, Hx Bipolar Disorder, Hx Borderline Personality Disorder, Hx Depression, Hx Personality Disorder, Hx Schizoaffective Disorder, Hx Schizophrenia Traumatic Medical History: Reports: Hx Traumatic Brain Injury Past Surgical History: Reports: Hx Cardiac Surgery - cannot confirm, Hx Coronary Stent - cannot confirm, Hx Orthopedic Surgery - ORIF Left Ankle - Immunizations Immunizations up to date: Yes Hx Diphtheria, Pertussis, Tetanus Vaccination: Yes Physical Exam - Vital signs Vitals: Temp Pulse Resp BP Pulse Ox 98.7 F 84 20 145/86 H 99 10/01/19 16:49 10/01/19 16:49 10/01/19 16:49 10/01/19 16:49 10/01/19 16:49 - General General appearance: Appears well, Alert Notes: Left lower extremity tenderness with swelling Course - Vital Signs Vital signs: Temp Pulse Resp BP Pulse Ox 98.7 F 84 20 145/86 H 99 10/01/19 16:49 10/01/19 16:49 10/01/19 16:49 10/01/19 16:49 10/01/19 16:49 Doctor's Discharge - Discharge Referrals: THONY ALANIS MD [Primary Care Provider] - Follow up as needed
[2019-10-01 18:29] LABS: ANION GAP 10 (5-19); BLOOD UREA NITROGEN 15 mg/dL (7-20); CALCIUM 9.3 mg/dL (8.4-10.2); CARBON DIOXIDE 27 mmol/L (22-30); CHLORIDE 105 mmol/L (98-107); CREATINE KINASE 216 U/L (55-170); GLUCOSE 85 mg/dL (75-110); POTASSIUM 4.2 mmol/L (3.6-5.0)
--- NOTE | 2019-10-01 19:00 | ER Document Report ---
ED General - General Chief Complaint: Leg Pain Stated Complaint: LEFT LEG PAIN Time Seen by Provider: 10/01/19 17:07 Primary Care Provider: THONY ALANIS MD [Primary Care Provider] - Follow up as needed Mode of Arrival: Ambulatory TRAVEL OUTSIDE OF THE [place] IN LAST 30 DAYS: No - HPI Notes: Patient is a 29-year-old male with a history of factor V Leiden who presents emergency department for evaluation of pain in his left leg. He states it hurts over the lateral aspect of the leg, has been hurting for about a month. He states is worsened by bearing weight, nothing seems to make it better. He denies any associated shortness of breath or chest pain. He is taking his Xarelto as prescribed. He does have a history of surgery to that ankle as well. He denies any new injury. - Related Data Allergies/Adverse Reactions: diphenhydramine HCl [From Benadryl] Allergy (Severe, Verified 04/22/18 09:11) Apnea haloperidol [From Haldol] Allergy (Severe, Verified 04/22/18 09:11) Rash, Apnea haloperidol lactate [From Haldol] Allergy (Severe, Verified 04/22/18 09:11) Rash, Apnea Heparin Analogues [Heparin Agents] Allergy (Severe, Verified 04/22/18 09:11) Anaphylaxis lamotrigine [From Lamictal] Allergy (Intermediate, Verified 04/22/18 09:55) rash cephalexin [From Keflex] Allergy (Verified 03/24/19 12:54) enoxaparin sodium [From Lovenox] Allergy (Verified 04/22/18 09:11) Rash hydroxyzine HCl [From Vistaril] Allergy (Verified 04/22/18 09:11) Apnea hydroxyzine pamoate [From Vistaril] Allergy (Verified 04/22/18 09:11) Apnea ketorolac [From Toradol] Allergy (Verified 04/22/18 09:55) lidocaine [Lidocaine] Allergy (Verified 04/22/18 09:11) tramadol Allergy (Verified 04/22/18 09:55) paliperidone [From Invega] Adverse Reaction (Verified 04/22/18 09:11) Severe Hypertension propranolol [Propranolol] Adverse Reaction (Verified 04/22/18 09:11) Severe Hypotension warfarin sodium [From Coumadin] Adverse Reaction (Verified 04/22/18 09:11) "Did not work" onions Allergy (Severe, Uncoded 04/22/18 09:11) Anaphylaxis nicotine patch adhesive Allergy (Intermediate, Uncoded 04/22/18 09:11) Rash Home Medications: Xarelto, Ambien, Oxycodone, Levothyroxine, Aricept, Depakote, Adderal, Cleocin, Wellbutrin, Xanax. Past Medical History - General Information source: Patient - Social History Smoking Status: Unknown if Ever Smoked Family History: Other - father with CAD in his 50s and an unknown clotting disorder; uncle with unknown clotting disorder. Patient has suicidal ideation: No Patient has homicidal ideation: No - Past Medical History Cardiac Medical History: Reports: Hx DVT, Hx Hypercholesterolemia, Hx Hypertension - on meds, Hx Pulmonary Embolism - was on Xarelto and Plavix, taken off both Oct 2018 Denies: Hx Coronary Artery Disease, Hx Heart Attack Pulmonary Medical History: Reports: Hx Asthma - ON MEDS, Hx Pneumonia, Hx Sleep Apnea Denies: Hx Bronchitis, Hx COPD Neurological Medical History: Reports: Hx Seizures - on depakote. Denies: Hx Cerebrovascular Accident, Hx Parkinson's Disease Endocrine Medical History: Reports: Hx Hypothyroidism Renal/ Medical History: Denies: Hx Peritoneal Dialysis GI Medical History: Reports: Hx Gastroesophageal Reflux Disease Musculoskeletal Medical History: Denies Hx Arthritis, Denies Hx Systemic Lupus Erythematosus Psychiatric Medical History: Reports: Hx Anxiety, Hx Bipolar Disorder, Hx Borderline Personality Disorder, Hx Depression, Hx Personality Disorder, Hx Schizoaffective Disorder, Hx Schizophrenia Traumatic Medical History: Reports: Hx Traumatic Brain Injury Past Surgical History: Reports: Hx Cardiac Surgery - cannot confirm, Hx Coronary Stent - cannot confirm, Hx Orthopedic Surgery - ORIF Left Ankle - Immunizations Immunizations up to date: Yes Hx Diphtheria, Pertussis, Tetanus Vaccination: Yes Hx Pneumococcal Vaccination: 10/31/13 Review of Systems - Review of Systems Constitutional: No symptoms reported EENT: No symptoms reported Cardiovascular: No symptoms reported Respiratory: No symptoms reported Gastrointestinal: No symptoms reported Genitourinary: No symptoms reported Musculoskeletal: See HPI Skin: No symptoms reported Neurological/Psychological: No symptoms reported Physical Exam - Vital signs Vitals: Temp Pulse Resp BP Pulse Ox 98.7 F 84 20 145/86 H 99 10/01/19 16:49 10/01/19 16:49 10/01/19 16:49 10/01/19 16:49 10/01/19 16:49 - Notes Notes: This is a 29-year-old male, extremely disheveled, exhibiting poor hygiene, in no acute distress. Vital signs reviewed, please refer to chart. Head is normocephalic, atraumatic. Pupils equal round, reactive to light. Neck is supple without meningismus. Heart is regular rate and rhythm. Lungs are clear to auscultation bilaterally. Abdomen is soft, nontender, normoactive bowel sounds throughout. Extremities without cyanosis, clubbing. Examination of the left lower extremity yields a moderate amount of edema, nonpitting. He does have posterior calf tenderness noted. He is a well-healed scar over the lateral malleolus without any signs of erythema or dehiscence.. Peripheral pulses are equal. Skin is warm and dry. Patient is awake, alert, neurological exam is nonfocal. Course - Re-evaluation Re-evalutation: 10/01/19 19:00 Patient presents emergency department for evaluation. He was initially seen and had venous Doppler performed. It was unofficially negative as per the food technologist. The patient is neurovascularly intact distally. I expanded the patient that, as his pain is going on for some time, he had multiple reasons for chronic pain, I found it unlikely that any acute illness was causing this, given his current anticoagulated state, his lack of current DVT, and lack of any signs of infection. He voiced understanding to this. I did offer to x-ray to make sure that the hardware in his ankle was still intact, had not moved. Otherwise he already is on oxycodone at home. He was amenable to this plan, awaiting x-ray. - Vital Signs Vital signs: Temp Pulse Resp BP Pulse Ox 98.7 F 84 20 145/86 H 99 10/01/19 16:49 10/01/19 16:49 10/01/19 16:49 10/01/19 16:49 10/01/19 16:49 - Laboratory Result Diagrams: 10/01/19 17:38 Laboratory results interpreted by me: 10/01/19 17:38 Creatine Kinase 216 H - Diagnostic Test Radiology reviewed: Reports reviewed - Unofficial report from ultrasound technician reveals no signs of DVT Radiology results interpreted by me: 10/01/19 19:38 Tibia/Fibula X-Ray 10/01/19 18:30 IMPRESSION: Healed left distal fibular fracture with plate and screw fixation hardware. No new bony abnormality or evidence of hardware complication. Discharge - Discharge Clinical Impression: Leg pain, left Condition: Stable Disposition: HOME, SELF-CARE Instructions: Leg Pain Nonspecific ([facility]) Additional Instructions: No clear cause was found for your symptoms today. Please continue to take your home medications as prescribed. Follow-up with primary care next week. Return to the ED with worsening or new concerning symptoms of any sort. Referrals: THONY ALANIS MD [Primary Care Provider] - Follow up as needed
--- NOTE | 2019-10-01 19:26 | RADIOLOGY REPORT (SQ) ---
EXAM DESCRIPTION: TIBIA FIBULA LEFT COMPLETED DATE/TIME: 10/01/2019 7:09 pm REASON FOR STUDY: pain, eval hardware COMPARISON: 08/20/2018 NUMBER OF VIEWS: Two views. TECHNIQUE: Two radiographic images acquired of the left tibia and fibula to include the knee and ank le in at least one projection. LIMITATIONS: None. FINDINGS: MINERALIZATION: Normal. BONES: Healed left distal fibular fracture with plate and screw fixation hardware. No new bony abnor mality. No evidence of hardware complication. SOFT TISSUES: No obvious swelling. OTHER: No other significant finding. IMPRESSION: Healed left distal fibular fracture with plate and screw fixation hardware. No new bony abnormality or evidence of hardware complication. TECHNICAL DOCUMENTATION: JOB ID: [id number] [employer]- All Rights Reserved Reading location - IP/workstation name: [email or web address]
[2019-10-01 19:50] VITALS: BP 135/77
--- NOTE | 2019-10-01 20:36 | RADIOLOGY REPORT (SQ) ---
EXAM DESCRIPTION: US EXTREMITY VEINS LEFT COMPLETED DATE/TME: 10/01/2019 17:14 CLINICAL HISTORY: 29 years, Male, LLE pain, swelling COMPARISON: None. TECHNIQUE: LIMITATIONS: None. FINDINGS: The common femoral, femoral, popliteal and posterior tibial veins are all patent. The peroneal vein could not be visualized. Venous Doppler waveforms are unremarkable. IMPRESSION: No evidence of deep venous thrombosis. copyright 2010 [employer]- All Rights Reserved
== END 2019-10-01 19:50 | disposition home or self-care (01) ==
LOC: ER 16:35
DX: M79.605 Pain in left leg (principal); D68.51 Activated protein C resistance; Z79.01 Long term (current) use of anticoagulants; Z98.890 Other specified postprocedural states; Z88.8 Allergy status to other drugs, medicaments and biological substances; I10 Essential (primary) hypertension; Z79.899 Other long term (current) drug therapy; J45.909 Unspecified asthma, uncomplicated
CPT/HCPCS: 36415; 80048; 82550; 93971; 99284

== ENCOUNTER 2019-12-09 23:22 | Emergency (ER) | payer MEDICAID ==
[2019-12-10] MEDS ORDERED: NORMAL SALINE 1000 ML 1,000 ML IV ONE
[2019-12-10] MEDS ORDERED: METOCLOPRAMIDE HCL INJ/PF 10 MG/2 ML SDV IV ONE (00:01)
--- NOTE | 2019-12-10 00:05 | ER Document Report ---
ED Medical Screen (RME) - General Chief Complaint: Headache Stated Complaint: MIGRAINE Time Seen by Provider: 12/09/19 23:56 Primary Care Provider: THONY ALANIS MD [Primary Care Provider] - Follow up as needed Mode of Arrival: Ambulatory Information source: Patient Notes: 29-year-old male with history of DVTs PE migraines reports to the emergency department with complaints of left-sided headache. Reports history of migraines but has not had one in a while. He reports his usual migraines are more throbbing and all the way across his forehead. He describes this mikes grain as a constant squeeze. Reports sensitivity to light noise. He reports he was at work at [employer] when he started feeling it coming on no he took Tylenol without relief of symptoms. He reports he did vomit. He denies trauma. Denies fever or diarrhea. Patient is answering all questions appropriate no obvious neuro deficits noted. Patient is allergic to many many medications. I have greeted and performed a rapid initial assessment of this patient. A comprehensive ED assessment and evaluation of the patient, analysis of test results and completion of the medical decision making process will be conducted by additional ED providers. TRAVEL OUTSIDE OF THE [place] IN LAST 30 DAYS: No - Related Data Allergies/Adverse Reactions: diphenhydramine HCl [From Benadryl] Allergy (Severe, Verified 04/22/18 09:11) Apnea haloperidol [From Haldol] Allergy (Severe, Verified 04/22/18 09:11) Rash, Apnea haloperidol lactate [From Haldol] Allergy (Severe, Verified 04/22/18 09:11) Rash, Apnea Heparin Analogues [Heparin Agents] Allergy (Severe, Verified 04/22/18 09:11) Anaphylaxis lamotrigine [From Lamictal] Allergy (Intermediate, Verified 04/22/18 09:55) rash cephalexin [From Keflex] Allergy (Verified 03/24/19 12:54) enoxaparin sodium [From Lovenox] Allergy (Verified 04/22/18 09:11) Rash hydroxyzine HCl [From Vistaril] Allergy (Verified 04/22/18 09:11) Apnea hydroxyzine pamoate [From Vistaril] Allergy (Verified 04/22/18 09:11) Apnea ketorolac [From Toradol] Allergy (Verified 04/22/18 09:55) lidocaine [Lidocaine] Allergy (Verified 04/22/18 09:11) tramadol Allergy (Verified 04/22/18 09:55) paliperidone [From Invega] Adverse Reaction (Verified 04/22/18 09:11) Severe Hypertension propranolol [Propranolol] Adverse Reaction (Verified 04/22/18 09:11) Severe Hypotension warfarin sodium [From Coumadin] Adverse Reaction (Verified 04/22/18 09:11) "Did not work" onions Allergy (Severe, Uncoded 04/22/18 09:11) Anaphylaxis nicotine patch adhesive Allergy (Intermediate, Uncoded 04/22/18 09:11) Rash Past Medical History - Past Medical History Cardiac Medical History: Reports: Hx DVT, Hx Hypercholesterolemia, Hx Hypertension - on meds, Hx Pulmonary Embolism - was on Xarelto and Plavix, taken off both Oct 2018 Denies: Hx Coronary Artery Disease, Hx Heart Attack Pulmonary Medical History: Reports: Hx Asthma - ON MEDS, Hx Pneumonia, Hx Sleep Apnea Denies: Hx Bronchitis, Hx COPD Neurological Medical History: Reports: Hx Seizures - on depakote. Denies: Hx Cerebrovascular Accident, Hx Parkinson's Disease Endocrine Medical History: Reports: Hx Hypothyroidism Renal/ Medical History: Denies: Hx Peritoneal Dialysis GI Medical History: Reports: Hx Gastroesophageal Reflux Disease Musculoskeltal Medical History: Denies Hx Arthritis, Denies Hx Systemic Lupus Erythematosus Psychiatric Medical History: Reports: Hx Anxiety, Hx Bipolar Disorder, Hx Borderline Personality Disorder, Hx Depression, Hx Personality Disorder, Hx Schizoaffective Disorder, Hx Schizophrenia Traumatic Medical History: Reports: Hx Traumatic Brain Injury Past Surgical History: Reports: Hx Cardiac Surgery - cannot confirm, Hx Coronary Stent - cannot confirm, Hx Orthopedic Surgery - ORIF Left Ankle - Immunizations Immunizations up to date: Yes Hx Diphtheria, Pertussis, Tetanus Vaccination: Yes Physical Exam - Vital signs Vitals: Temp Pulse Resp BP Pulse Ox 98.3 F 64 20 150/94 H 100 12/09/19 23:30 12/09/19 23:30 12/09/19 23:30 12/09/19 23:30 12/09/19 23:30 Course - Vital Signs Vital signs: Temp Pulse Resp BP Pulse Ox 98.3 F 64 20 150/94 H 100 12/09/19 23:30 12/09/19 23:30 12/09/19 23:30 12/09/19 23:30 12/09/19 23:30 Doctor's Discharge - Discharge Referrals: THONY ALANIS MD [Primary Care Provider] - Follow up as needed
[2019-12-10] MEDS ORDERED: MORPHINE SULFATE 10 MG/ML INJ IV ONE (00:33)
--- NOTE | 2019-12-10 00:37 | ER Document Report ---
ED General - General Chief Complaint: Headache Stated Complaint: MIGRAINE Time Seen by Provider: 12/09/19 23:56 Primary Care Provider: THONY ALANIS MD [NO LOCAL MD] - Follow up as needed Mode of Arrival: Ambulatory TRAVEL OUTSIDE OF THE [place] IN LAST 30 DAYS: No - HPI Notes: Patient is a 29-year-old male with history of PE, DVT (on Xarelto), migraines who presents complaining of migraine headache that began around 3 PM today. Patient states that the pain did not start as a thunderclap. It gradually built up throughout the day. Patient states that he does have light and noise sensitivity as well as nausea and vomiting. Patient states that the symptoms are very similar to when he has migraines normally. This is not the worst headache of his life otherwise. Denies any fever, head injury, neck pain, changes in speech/mentation, URI, sore throat, chest pain, palpitations, syncope, cough, shortness of breath, wheeze, dyspnea, abdominal pain, diarrhea, urinary retention, dysuria, hematuria, loss of control of bowel or bladder, numbness/tingling, saddle anesthesia, muscle paralysis/weakness, or rash. - Related Data Allergies/Adverse Reactions: diphenhydramine HCl [From Benadryl] Allergy (Severe, Verified 04/22/18 09:11) Apnea haloperidol [From Haldol] Allergy (Severe, Verified 04/22/18 09:11) Rash, Apnea haloperidol lactate [From Haldol] Allergy (Severe, Verified 04/22/18 09:11) Rash, Apnea Heparin Analogues [Heparin Agents] Allergy (Severe, Verified 04/22/18 09:11) Anaphylaxis lamotrigine [From Lamictal] Allergy (Intermediate, Verified 04/22/18 09:55) rash cephalexin [From Keflex] Allergy (Verified 03/24/19 12:54) enoxaparin sodium [From Lovenox] Allergy (Verified 04/22/18 09:11) Rash hydroxyzine HCl [From Vistaril] Allergy (Verified 04/22/18 09:11) Apnea hydroxyzine pamoate [From Vistaril] Allergy (Verified 04/22/18 09:11) Apnea ketorolac [From Toradol] Allergy (Verified 04/22/18 09:55) lidocaine [Lidocaine] Allergy (Verified 04/22/18 09:11) tramadol Allergy (Verified 04/22/18 09:55) paliperidone [From Invega] Adverse Reaction (Verified 04/22/18 09:11) Severe Hypertension propranolol [Propranolol] Adverse Reaction (Verified 04/22/18 09:11) Severe Hypotension warfarin sodium [From Coumadin] Adverse Reaction (Verified 04/22/18 09:11) "Did not work" onions Allergy (Severe, Uncoded 04/22/18 09:11) Anaphylaxis nicotine patch adhesive Allergy (Intermediate, Uncoded 04/22/18 09:11) Rash Past Medical History - General Information source: Patient - Social History Smoking Status: Current Every Day Smoker Chew tobacco use (# tins/day): No Frequency of alcohol use: Occasional Drug Abuse: None Family History: Other - father with CAD in his 50s and an unknown clotting disorder; uncle with unknown clotting disorder. Patient has suicidal ideation: No Patient has homicidal ideation: No - Past Medical History Cardiac Medical History: Reports: Hx DVT, Hx Hypercholesterolemia, Hx Hypertension - on meds, Hx Pulmonary Embolism - was on Xarelto and Plavix, taken off both Oct 2018 Denies: Hx Coronary Artery Disease, Hx Heart Attack Pulmonary Medical History: Reports: Hx Asthma - ON MEDS, Hx Pneumonia, Hx Sleep Apnea Denies: Hx Bronchitis, Hx COPD Neurological Medical History: Reports: Hx Seizures - on depakote. Denies: Hx Cerebrovascular Accident, Hx Parkinson's Disease Endocrine Medical History: Reports: Hx Hypothyroidism Renal/ Medical History: Denies: Hx Peritoneal Dialysis GI Medical History: Reports: Hx Gastroesophageal Reflux Disease Musculoskeletal Medical History: Denies Hx Arthritis, Denies Hx Systemic Lupus Erythematosus Psychiatric Medical History: Reports: Hx Anxiety, Hx Bipolar Disorder, Hx Borderline Personality Disorder, Hx Depression, Hx Personality Disorder, Hx Schizoaffective Disorder, Hx Schizophrenia Traumatic Medical History: Reports: Hx Traumatic Brain Injury Past Surgical History: Reports: Hx Cardiac Surgery - cannot confirm, Hx Coronary Stent - cannot confirm, Hx Orthopedic Surgery - ORIF Left Ankle - Immunizations Immunizations up to date: Yes Hx Diphtheria, Pertussis, Tetanus Vaccination: Yes Hx Pneumococcal Vaccination: 10/31/13 Review of Systems - Review of Systems -: Yes All other systems reviewed and negative Physical Exam - Vital signs Vitals: Temp Pulse Resp BP Pulse Ox 98.3 F 64 20 150/94 H 100 12/09/19 23:30 12/09/19 23:30 12/09/19 23:30 12/09/19 23:30 12/09/19 23:30 - Notes Notes: PHYSICAL EXAMINATION: GENERAL: Well-appearing, well-nourished and in no acute distress. A&Ox4. Answers questions appropriately. HEAD: Atraumatic, normocephalic. Non-tender. EYES: Pupils equal round and reactive to light, extraocular movements intact, sclera anicteric, conjunctiva are normal. No nystagmus. vis aguirre intact. ENT: Nares patent and without discharge. oropharynx clear without exudates. No tonsilar hypertrophy or erythema. Moist mucous membranes. NECK: Normal range of motion, supple without lymphadenopathy. No rigidity/meningismus. No midline tenderness. LUNGS: Breath sounds clear to auscultation bilaterally and equal. No wheezes rales or rhonchi. HEART: Regular rate and rhythm without murmurs, rubs, gallops. ABDOMEN: Soft, nontender, nondistended abdomen. No guarding, no rebound. Normal bowel sounds present. No CVA tenderness bilaterally. Musculoskeletal: Ext b/l: FROM to passive/active. Strength 5+/5. No deficits noted. No bony tenderness of extremities. Extremities: No cyanosis, clubbing, or edema b/l. Peripheral pulses 2+. Ca pillary refill less than 2 seconds. NEUROLOGICAL: NIH 0. GCS 15. Cranial nerves grossly intact. Normal speech, normal gait. Normal sensory, motor exams. Reflexes 2+ b/l. PSYCH: Normal mood, normal affect. SKIN: Warm, Dry, normal turgor, no rashes or lesions noted. Course - Re-evaluation Re-evalutation: 12/10/19 01:32 Patient is an afebrile, well-hydrated, 29-year-old male who presents to the ED with a headache, suspect migraine. Vitals are acceptable without any significant tachycardia, tachypnea, or hypoxia. PE is otherwise unremarkable for any focal neurological deficits. NIH 0, GCS 15, cranial nerves grossly intact. Patient has had headaches like this in the past. No labs or imaging warranted at this time based on H&P. Patient was given morphine, reglan, and tylenol with fluids which have resolved the CAN[place]. Patient states that he is feeling much better and would like to go home. He is nontoxic-appearing and is tolerating p.o. without any difficulties. Low suspicion for any acute glaucoma, temporal arteritis, meningitis, intracranial hemorrhage, ischemic stroke, or fracture at this time. Patient is aware that this condition can change from initial presentation and that he needs to monitor symptoms closely for any acute changes. Recheck with your PCM/neurologist in 3-5 days. Return to the ED with any worsening/concerning symptoms otherwise as reviewed in discharge. Patient is in agreement. - Vital Signs Vital signs: Temp Pulse Resp BP Pulse Ox 98.3 F 64 20 150/94 H 100 12/09/19 23:30 12/09/19 23:30 12/09/19 23:30 12/09/19 23:30 12/09/19 23:30 Discharge - Discharge Clinical Impression: Headache Qualifiers: Headache type: unspecified Headache chronicity pattern: acute headache Intractability: not intractable Qualified Code(s): R51 - Headache Condition: Stable Disposition: HOME, SELF-CARE Instructions: Headache ([facility]) Additional Instructions: Rest, Ice/cool compress Tylenol as needed Light stretches daily Strength exercises as able Moist heat and massage may help F/u with your PCP in 2-3 days for a recheck Consider consult(s) with Neurology for ongoing/worsening symptoms Return to the ED with any worsening symptoms and/or development of fever, headache, changes in behavior/mentation/vision/speech, chest pain, palpitations, syncope, shortness of breath, trouble breathing, abdominal pain, n/v/d, blood in stool/urine, loss of control of bowel/bladder, urinary retention, muscle weakness/paralysis, saddle anesthesia, numbness/tingling, or other worsening symptoms that are concerning to you. Forms: Return to Work, Smoking Cessation Education, Elevated Blood Pressure Referrals: THONY ALANIS MD [NO LOCAL MD] - Follow up as needed BRIAN KNUTSON MD [NO LOCAL MD] - Follow up as needed
[2019-12-10] MEDS ORDERED: ACETAMINOPHEN 325 MG TABLET PO ONE (00:38)
[2019-12-10 01:59] VITALS: BP 124/83
== END 2019-12-10 01:59 | disposition home or self-care (01) ==
LOC: ER 23:22
DX: R51 Headache (principal); R11.2 Nausea with vomiting, unspecified; H53.149 Visual discomfort, unspecified; F17.200 Nicotine dependence, unspecified, uncomplicated; I10 Essential (primary) hypertension; J45.909 Unspecified asthma, uncomplicated; Z86.718 Personal history of other venous thrombosis and embolism; Z86.711 Personal history of pulmonary embolism; Z79.01 Long term (current) use of anticoagulants; Z86.69 Personal history of other diseases of the nervous system and sense organs; Z88.8 Allergy status to other drugs, medicaments and biological substances; Z88.1 Allergy status to other antibiotic agents; Z88.4 Allergy status to anesthetic agent; Z88.6 Allergy status to analgesic agent; Z87.892 Personal history of anaphylaxis; Z91.018 Allergy to other foods
CPT/HCPCS: J3490; J2765; J2270; J7030

== ENCOUNTER 2020-02-06 20:59 | Emergency (ER) | payer MEDICAID ==
[2020-02-07] MEDS ORDERED: IBUPROFEN 800 MG TABLET PO ONE (00:01)
--- NOTE | 2020-02-07 00:04 | ER Document Report ---
ED General - General Chief Complaint: Cough Stated Complaint: FEVER/COUGH Time Seen by Provider: 02/06/20 23:35 Primary Care Provider: MINOR RADFORD MD [Primary Care Provider] - Follow up as needed Notes: Patient is a 29-year-old male that comes emergency department with 2 complaints. First complaint is worsening cough, sore throat, and developing fever over the past 2 days. He denies any obvious sick contacts but [place] He denies any chest pain, vomiting, abdominal pain. He does not smoke, denies history of asthma or COPD. He denies recreational drugs. Second complaint is right-sided facial pain rating up to the right ear. When asked he admits to very bad dentition but has not been able to see a dentist. Past medical history includes DVTs on Xarelto, morbid obesity, chronic back pain on pain management. TRAVEL OUTSIDE OF THE [place] IN LAST 30 DAYS: No - Related Data Allergies/Adverse Reactions: diphenhydramine HCl [From Benadryl] Allergy (Severe, Verified 04/22/18 09:11) Apnea haloperidol [From Haldol] Allergy (Severe, Verified 04/22/18 09:11) Rash, Apnea haloperidol lactate [From Haldol] Allergy (Severe, Verified 04/22/18 09:11) Rash, Apnea Heparin Analogues [Heparin Agents] Allergy (Severe, Verified 04/22/18 09:11) Anaphylaxis lamotrigine [From Lamictal] Allergy (Intermediate, Verified 04/22/18 09:55) rash cephalexin [From Keflex] Allergy (Verified 03/24/19 12:54) enoxaparin sodium [From Lovenox] Allergy (Verified 04/22/18 09:11) Rash hydroxyzine HCl [From Vistaril] Allergy (Verified 04/22/18 09:11) Apnea hydroxyzine pamoate [From Vistaril] Allergy (Verified 04/22/18 09:11) Apnea ketorolac [From Toradol] Allergy (Verified 04/22/18 09:55) lidocaine [Lidocaine] Allergy (Verified 04/22/18 09:11) tramadol Allergy (Verified 04/22/18 09:55) paliperidone [From Invega] Adverse Reaction (Verified 04/22/18 09:11) Severe Hypertension propranolol [Propranolol] Adverse Reaction (Verified 04/22/18 09:11) Severe Hypotension warfarin sodium [From Coumadin] Adverse Reaction (Verified 04/22/18 09:11) "Did not work" onions Allergy (Severe, Uncoded 04/22/18 09:11) Anaphylaxis nicotine patch adhesive Allergy (Intermediate, Uncoded 04/22/18 09:11) Rash Home Medications: ALBUTEROL Past Medical History - General Information source: Patient - Social History Smoking Status: Never Smoker Frequency of alcohol use: None Drug Abuse: None Lives with: Family Family History: Other - father with CAD in his 50s and an unknown clotting disorder; uncle with unknown clotting disorder. Patient has suicidal ideation: No Patient has homicidal ideation: No - Past Medical History Cardiac Medical History: Reports: Hx DVT, Hx Hypercholesterolemia, Hx Hypertension - on meds, Hx Pulmonary Embolism - was on Xarelto and Plavix, taken off both Oct 2018 Denies: Hx Coronary Artery Disease, Hx Heart Attack Pulmonary Medical History: Reports: Hx Asthma - ON MEDS, Hx Pneumonia, Hx Sleep Apnea Denies: Hx Bronchitis, Hx COPD Neurological Medical History: Reports: Hx Seizures - on depakote. Denies: Hx Cerebrovascular Accident, Hx Parkinson's Disease Endocrine Medical History: Reports: Hx Hypothyroidism Renal/ Medical History: Denies: Hx Peritoneal Dialysis GI Medical History: Reports: Hx Gastroesophageal Reflux Disease Musculoskeletal Medical History: Denies Hx Arthritis, Denies Hx Systemic Lupus Erythematosus Psychiatric Medical History: Reports: Hx Anxiety, Hx Bipolar Disorder, Hx Borderline Personality Disorder, Hx Depression, Hx Personality Disorder, Hx Schizoaffective Disorder, Hx Schizophrenia Traumatic Medical History: Reports: Hx Traumatic Brain Injury Past Surgical History: Reports: Hx Cardiac Surgery - cannot confirm, Hx Coronary Stent - cannot confirm, Hx Orthopedic Surgery - ORIF Left Ankle - Immunizations Immunizations up to date: Yes Hx Diphtheria, Pertussis, Tetanus Vaccination: Yes Hx Pneumococcal Vaccination: 10/31/13 Review of Systems - Review of Systems Constitutional: See HPI EENT: See HPI Cardiovascular: No symptoms reported Respiratory: See HPI Gastrointestinal: No symptoms reported Genitourinary: No symptoms reported Male Genitourinary: No symptoms reported Musculoskeletal: No symptoms reported Skin: No symptoms reported Hematologic/Lymphatic: No symptoms reported Neurological/Psychological: No symptoms reported Physical Exam - Vital signs Vitals: Temp Pulse Resp BP Pulse Ox 98.9 F 101 H 15 126/95 H 98 02/06/20 22:54 02/06/20 22:54 02/06/20 22:54 02/06/20 22:54 02/06/20 22:54 - Notes Notes: GENERAL: Alert, interacts well. No acute distress. HEAD: Normocephalic, atraumatic. EYES: Pupils equal, round, and reactive to light. Extraocular movements intact. ENT: Oral mucosa moist, tongue midline. Oropharynx mildly erythematous but otherwise unremarkable. Airway patent. Nares patent, sinuses non-tender, ear canals unremarkable, TM's intact. Dentition is very poor with multiple dental caries, in addition to this there is a significant dental carry in the posterior molar on the right inferior aspect, surrounding erythema noted to the gumline with tenderness but no induration, fluctuance, or abscess. No swelling of the face. NECK: Full range of motion. Supple. Trachea midline. Mild anterior cervical adenopathy bilaterally, no evidence of Omer's angina. LUNGS: Clear to auscultation bilaterally, no wheezes, rales, or rhonchi. No respiratory distress. Non-tender chest wall. HEART: Regular rate and rhythm. No murmur ABDOMEN: Soft, non-tender. Non-distended. EXTREMITIES: Moves all 4 extremities spontaneously. No edema, normal radial and dorsalis pedis pulses bilaterally. No cyanosis. BACK: no cervical, thoracic, lumbar midline tenderness. No saddle anesthesia, normal distal neurovascular exam. Moves all extremities in full range of motion. NEUROLOGICAL: Alert and oriented x3. Normal speech. Cranial nerves II through XII grossly intact. Strength 5/5 in all extremities. PSYCH: Normal affect, normal mood. SKIN: Warm, dry, normal turgor. No rashes or lesions noted. Course - Re-evaluation Re-evalutation: Initially patient denied asthma but when I spoke to be good he states that he has been prescribed inhalers that he uses periodically. Patient is not wheezing on exam, is not hypoxic, he has an occasional cough, mild anterior cervical adenopathy, mild erythema of the posterior pharynx, physical exam otherwise unremarkable. Patient talkative, alert, well-appearing. Reportedly febrile earlier in triage. An additional 2 patient sick symptoms he also has dental caries with pain and erythema along the right inferior posterior gumline consistent with dental infection. No evidence of abscess noted. Patient will require treatment for this, he was started on penicillin and he will be referred to a dentist. This was discussed in detail. Chest x-ray negative, influenza and strep are negative. Discussed with patient. Patient will be tested for the coronavirus, be given isolation precautions, and I discussed return precautions in detail. Patient states appreciation and agreement. Stable and well-appearing at time of discharge. Patient states he has plenty of inhaler refills and uses a spacer as well. - Vital Signs Vital signs: Temp Pulse Resp BP Pulse Ox 100.0 F 89 15 133/89 H 98 02/07/20 02:42 02/07/20 02:42 02/07/20 02:42 02/07/20 02:42 02/07/20 02:42 Discharge - Discharge Clinical Impression: Cough, Sore throat, Pain, dental, Dental infection Fever Qualifiers: Fever type: unspecified Qualified Code(s): R50.9 - Fever, unspecified Condition: Stable Disposition: HOME, SELF-CARE Additional Instructions: Your strep throat, influenza test, and x-ray do not show any concerning findings. We have coronavirus testing pending. Take Tylenol for fever, take the antibiotic as prescribed for the dental infection, please follow-up with the listed dental referral below for additional management. Use your inhaler with the spacer if needed (1-2 puffs every 4-6 hours). Please follow-up isolation precautions listed below as well. Return for any concerning or worsening symptoms including difficulty breathing, continued spiking fevers, swelling of the face, or any other concerning or worsening symptoms. As a person under investigation for COVID-19, the [place] Department of Health and Human Services (divison on public health) advises you to adhere to the following guidance until your test results are reported to you. If your test result is positive, you will receive additional information from your provider and your local health department at that time. Remain at home until you are cleared by the health provider or public health authorities. Keep a log of visitors to your home, notify any visitors to your home of your isolation status. If you plan to move to a new address or leave the [facility], notify the local health department in your County. Call your Doctor or seek care if you have an urgent medical need. Before seeking medical care, call him to get instructions from the provider before arriving at the medical office, clinic, or hospital. Notify them that you are being tested for the virus (COVID-19) so that arrangements can be made, as necessary, to prevent transmission to others in the healthcare setting. Next, notify the local health department in your county. If a medical emergency arises and you need to call 911, inform the first responders that you are being tested for the virus that causes COVID-19. Next, notify the local health department in your [facility]. [facility] [address] [place] [address], [id number] Prescriptions: Penicillin V Potassium [Penicillin Vk 500 mg Tablet] 500 mg PO BID #20 tablet Referrals: MINOR RADFORD MD [Primary Care Provider] - Follow up as needed
--- NOTE | 2020-02-07 00:35 | RADIOLOGY REPORT (SQ) ---
EXAM DESCRIPTION: XR CHEST 1 VIEW COMPLETED DATE/TME: 02/06/2020 00:00 CLINICAL HISTORY: 29 years Male, COUGH COMPARISON: None. NUMBER OF VIEWS/TECHNIQUE: 1/AP FINDINGS: Low lung volume, clear parenchyma, normal cardiac silhouette, and intact bony thorax. IMPRESSION: No acute cardiopulmonary findings.
[2020-02-07] MEDS ORDERED: OXYCODONE HCL IR 5 MG TABLET PO ONE ×2 (00:59→02:11)
[2020-02-07 01:45] LABS: A TYPE INFLUENZA AG NEGATIVE (NEGATIVE); B INFLUENZA AG NEGATIVE (NEGATIVE)
[2020-02-07] MEDS ORDERED: PENICILLIN V POTASSIUM 250 MG TABLET PO ONE (02:11)
[2020-02-07] MEDS ORDERED: DEXAMETHASONE SOD PHOS INJ 10 MG/1 ML VIAL IM ONE (02:14)
[2020-02-07 02:43] VITALS: BP 133/89
== END 2020-02-07 03:01 | disposition home or self-care (01) ==
LOC: ER 20:59
DX: Z20.828 Contact with and (suspected) exposure to other viral communicable diseases (principal); J02.9 Acute pharyngitis, unspecified; K04.7 Periapical abscess without sinus; R05 Cough; R50.9 Fever, unspecified; E03.9 Hypothyroidism, unspecified; E78.00 Pure hypercholesterolemia, unspecified; I10 Essential (primary) hypertension; Z86.718 Personal history of other venous thrombosis and embolism; Z88.6 Allergy status to analgesic agent; Z86.711 Personal history of pulmonary embolism; Z79.01 Long term (current) use of anticoagulants
CPT/HCPCS: 99283; 96372; 87070; 87880; 87635; 87804; 71045; J1100; J3490

== ENCOUNTER 2020-02-22 02:31 | Emergency (ER) | payer MEDICAID ==
[2020-02-22] MEDS ORDERED: CLINDAMYCIN HCL 150 MG CAPSULE PO ONE (03:54)
[2020-02-22] MEDS ORDERED: HYDROCODONE/ACETAMINOPHEN 5-325 MG (6 TAB/ER DISP) PO PRN (03:56)
--- NOTE | 2020-02-22 04:08 | RADIOLOGY REPORT (SQ) ---
EXAM DESCRIPTION: XR FOOT 3 OR MORE VIEWS COMPLETED DATE/TME: 02/22/2020 03:03 CLINICAL HISTORY: 29 years Male, R/O FORIEGN BODY. COMPARISON: None. Findings: Known soft tissue injury; no radioopaque foreign body. Bones, joints, and soft tissues of the LEFT XR FOOT 3 VIEWS appear otherwise intact. Osteotomy plate and screw fixation at the lateral malleolus/distal left fibula. IMPRESSION: Soft tissue injury; else, no acute findings.
--- NOTE | 2020-02-22 04:23 | ER Document Report ---
Entered by KYLE TAYLOR SCRIBE 02/22/20 0326 Acting as scribe for:ZHANG SMITH IV, MD ED Foreign Body - General Chief Complaint: Foreign Body Stated Complaint: GLASS STUCK IN LEFT FOOT Time Seen by Provider: 02/22/20 03:22 Primary Care Provider: MALIKA BLAKE MD [ACTIVE PROVISIONAL STAFF] - Follow up as needed MINOR RADFORD MD [Primary Care Provider] - Follow up as needed Mode of Arrival: Wheelchair Information source: Patient Notes: This 29 year old male patient presents to the ED today with complaints of a foreign body to his left foot that occurred approximately x1 week ago. Patient states that a mirror fell of the wall and glass shards were on the ground. He states that he thought he removed the piece of glass that was in his foot, but reports that for the last x3 days, the pain has been worse, especially with ambulating. He notes that he took x6 Tylenol without relief. Patient's allergy to lidocaine was verified. He also reports dental pain due to decaying teeth for the past x2 weeks. He states that he was seen here approximately x2 weeks ago for the dental pain and was diagnosed with a dental infection, prescribed penicillin, and discharged with instructions to follow up with a dental clinic. He reports that the antibiotics did not relieve his symptoms and that he could not get in to see a dentist because "they either don't accept my insurance or aren't taking new patients." TRAVEL OUTSIDE OF THE [place] IN LAST 30 DAYS: No - Related Data Allergies/Adverse Reactions: diphenhydramine HCl [From Benadryl] Allergy (Severe, Verified 02/22/20 02:55) Apnea haloperidol [From Haldol] Allergy (Severe, Verified 02/22/20 02:55) Rash, Apnea haloperidol lactate [From Haldol] Allergy (Severe, Verified 02/22/20 02:55) Rash, Apnea Heparin Analogues [Heparin Agents] Allergy (Severe, Verified 02/22/20 02:55) Anaphylaxis lamotrigine [From Lamictal] Allergy (Intermediate, Verified 02/22/20 02:55) rash cephalexin [From Keflex] Allergy (Verified 02/22/20 02:55) enoxaparin sodium [From Lovenox] Allergy (Verified 02/22/20 02:55) Rash hydroxyzine HCl [From Vistaril] Allergy (Verified 02/22/20 02:55) Apnea hydroxyzine pamoate [From Vistaril] Allergy (Verified 02/22/20 02:55) Apnea ketorolac [From Toradol] Allergy (Verified 02/22/20 02:55) lidocaine [Lidocaine] Allergy (Verified 02/22/20 02:55) sulfamethoxazole [From Bactrim] Allergy (Verified 02/22/20 04:28) tramadol Allergy (Verified 02/22/20 02:55) trimethoprim [From Bactrim] Allergy (Verified 02/22/20 04:28) paliperidone [From Invega] Adverse Reaction (Verified 02/22/20 02:55) Severe Hypertension propranolol [Propranolol] Adverse Reaction (Verified 02/22/20 02:55) Severe Hypotension warfarin sodium [From Coumadin] Adverse Reaction (Verified 02/22/20 02:55) "Did not work" onions Allergy (Severe, Uncoded 04/22/18 09:11) Anaphylaxis nicotine patch adhesive Allergy (Intermediate, Uncoded 04/22/18 09:11) Rash Past Medical History - General Information source: Patient, [facility] Records - Social History Smoking Status: Former Smoker Cigarette use (# per day): No Chew tobacco use (# tins/day): No Smoking Education Provided: No Frequency of alcohol use: None Drug Abuse: None Lives with: Spouse/Significant other Family History: Reviewed & Not Pertinent, CAD, Other - father with CAD in his 50s and an unknown clotting disorder; uncle with unknown clotting disorder. Patient has suicidal ideation: No Patient has homicidal ideation: No - Past Medical History Cardiac Medical History: Reports: Hx DVT, Hx Hypercholesterolemia, Hx Hypertension - on meds, Hx Pulmonary Embolism - was on Xarelto and Plavix, taken off both Oct 2018 Pulmonary Medical History: Reports: Hx Asthma - ON MEDS, Hx Pneumonia, Hx Sleep Apnea Neurological Medical History: Reports: Hx Seizures - on depakote Endocrine Medical History: Reports: Hx Hypothyroidism GI Medical History: Reports: Hx Gastroesophageal Reflux Disease Psychiatric Medical History: Reports: Hx Anxiety, Hx Bipolar Disorder, Hx Borderline Personality Disorder, Hx Depression, Hx Personality Disorder, Hx Schizoaffective Disorder, Hx Schizophrenia Traumatic Medical History: Reports: Hx Traumatic Brain Injury Past Surgical History: Reports: Hx Cardiac Surgery - cannot confirm, Hx Coronary Stent - cannot confirm, Hx Orthopedic Surgery - ORIF Left Ankle - Immunizations Immunizations up to date: Yes Hx Diphtheria, Pertussis, Tetanus Vaccination: Yes Hx Pneumococcal Vaccination: 10/31/13 Review of Systems - Review of Systems Constitutional: No symptoms reported EENT: See HPI, Dental problem Cardiovascular: No symptoms reported Respiratory: No symptoms reported Gastrointestinal: No symptoms reported Genitourinary: No symptoms reported Male Genitourinary: No symptoms reported Musculoskeletal: See HPI, Other - Left foot pain Skin: See HPI, Other - Foreign body in left foot Hematologic/Lymphatic: No symptoms reported Neurological/Psychological: No symptoms reported -: Yes All other systems reviewed and negative Physical Exam - Vital signs Vitals: Temp Pulse Resp BP Pulse Ox 98.2 F 76 20 143/83 H 100 02/22/20 02:49 02/22/20 02:49 02/22/20 02:49 02/22/20 02:49 02/22/20 02:49 - General General appearance: Alert - HEENT Head: Normocephalic, Atraumatic Eyes: Normal Pupils: PERRL Mouth/Lips: Other - Generalized poor dentition. No trismus. No submandibular swelling. - Respiratory Respiratory status: No respiratory distress Chest status: Nontender Breath sounds: Normal Chest palpation: Normal - Cardiovascular Rhythm: Regular Heart sounds: Normal auscultation Murmur: No Friction rub: No Gallop: None auscultated - Abdominal Inspection: Normal Distension: No distension Bowel sounds: Normal Tenderness: Nontender - Abdomen soft Organomegaly: No organomegaly - Back Back: Normal, Nontender - Extremities General upper extremity: Normal inspection Foot: Other - Small area of swelling on plantar base of left foot. Area is tender to palpation. No foreign body appreciated with palpation. No erythema or discharge noted. - Neurological Neuro grossly intact: Yes Speech: Normal - Able to speak in full sentences - Psychological Associated symptoms: Normal affect, Normal mood - Skin Skin Temperature: Warm Skin Moisture: Dry Skin Color: Normal Skin irregularity: other - Small area of swelling on plantar base of left foot. Area is tender to palpation. No foreign body appreciated with palpation. No erythema or discharge noted. Course - Re-evaluation Re-evalutation: 02/22/20 03:58 Results of ED MSE discussed with patient. This MD explained to the patient that given that there is no obvious foreign body seen on EKG, there is no evidence of a puncture site in which the foreign body might be contained or a area of purulent discharge which might indicate a retained foreign body, this MD advised against blind exploration of the plantar surface of the foot to try to find a foreign body. Given the patient also states he has a anaphylactic reaction to lidocaine, this MD informed patient that for this reason also attempts at incision of the foot to try to find a foreign body not seen on x-ray are again not advisable. Emergency signs and symptoms, reasons to return to the emergency department discussed with patient. Patient states he has crutches at home. This MD advised the patient to avoid restrictive footwear on his left foot and avoid weightbearing. Given the current COVID 19 crisis, no elective surgeries are being done at this time. Patient was instructed to take antibiotics as directed for his dental pain and hopefully local dental offices will open up in the near future to see the patient on an elective basis. Patient was also given referral to orthopedics on-call to follow-up about his foot at a future date yet to be determined. - Vital Signs Vital signs: Temp Pulse Resp BP Pulse Ox 98.5 F 83 16 134/86 H 98 02/22/20 04:35 02/22/20 04:35 02/22/20 04:35 02/22/20 04:35 02/22/20 04:35 Discharge - Discharge Clinical Impression: Pain, dental, Left foot pain Condition: Good Disposition: HOME, SELF-CARE Instructions: [facility], Clindamycin ([facility]), Oral Narcotic Medication ([facility]), Toothache ([facility]) Additional Instructions: Return to the Emergency Department without delay if any worse. HOME CARE INSTRUCTIONS & INFORMATION: Thank you for choosing us for your medical needs. We hope you're satisfied with the care you received. After you leave, you must properly care for your problem and, at the same time, observe its progress. Any condition can change. Some illnesses can change rapidly over hours or days. If your condition worsens, return to the Emergency Department or see your physician promptly. ABOUT YOUR X-RAYS AND EKG'S: If you had an EKG or X-rays taken, they have been read by the Emergency Physician. The X-rays and EKG's will also be read by a Radiologist or Plant Tender within 24 hours. If discrepancies are noted, you will be notified by telephone. Please be certain the ED has a correct telephone number & address where you can be reached. Also, realize that some fractures or abnormalities do not show up on initial X-rays. If your symptoms continue, see your physician. ABOUT YOUR LABORATORY TEST: If you had laboratory tests, the results have been reviewed by the Emergency Physician. Some test results (for example cultures) may not be available for several days. You will be contacted if any test result shows you need additional treatment. Please be certain the ED has a correct telephone number and address where you can be reached. ABOUT YOUR MEDICATIONS: You will receive instructions on how to take your medicine on the prescription label you receive. Additional information may be provided by the Pharmacy. If you have questions afterwards, call the ED for clarification or further instructions. Some prescribed medications may cause drowsiness. Do not perform tasks such as driving a car or operating machinery without consulting your Pharmacist. If you feel you need a refill of pain medication, your condition will need re-evaluation. Please do not call for a refill of any medication. ABOUT YOUR SIGNATURE: Signature of this document acknowledges to followin. Understanding that you received emergency treatment and that you may be released before al medical problems are known or treated. Please be certain the ED has a correct phone number & address where you can be reached. 2. Acknowledgement that you will arrange for follow-up care as recommended. 3. Authorization for the Emergency Physician to provide information to your follow-up Physician in order to maximize your care. AT ANY TIME, IF YOUR SYMPTOMS CHANGE SIGNIFICANTLY OR WORSEN OR YOU DEVELOP NEW SYMPTOMS, RETURN TO THE EMERGENCY DEPARTMENT IMMEDIATELY FOR RE-EVALUATION. OUR GOAL IS TO PROVIDE EXCELLENT MEDICAL CARE! WE HOPE THAT WE HAVE MET YOUR EXPECTATIONS DURING YOUR EMERGENCY DEPARTMENT VISIT AND THAT YOU FEEL YOU HAVE RECEIVED EXCELLENT CARE! Prescriptions: Clindamycin HCl [Cleocin 150 mg Capsule] 450 mg PO TID 10 Days #90 Referrals: MINOR RADFORD MD [Primary Care Provider] - Follow up as needed MALIKA BLAKE MD [ACTIVE PROVISIONAL STAFF] - Follow up as needed I personally performed the services described in the documentation, reviewed and edited the documentation which was dictated to the scribe in my presence, and it accurately records my words and actions.
[2020-02-22 04:38] VITALS: BP 134/86
== END 2020-02-22 04:40 | disposition home or self-care (01) ==
LOC: ER 02:31
DX: K08.9 Disorder of teeth and supporting structures, unspecified (principal); M79.672 Pain in left foot; Z88.3 Allergy status to other anti-infective agents
CPT/HCPCS: 99283; 73630; J3490

== ENCOUNTER 2020-02-29 22:23 | Emergency (ER) | payer MEDICAID ==
--- NOTE | 2020-02-29 23:34 | ER Document Report ---
HPI - HPI Time Seen by Provider: 02/29/20 23:22 Pain Level: 2 Context: Patient is a 29-year-old male that comes emergency department for chief complaint of pain to the right ankle, he states that he believes he stepped on a sharp object, possibly glass, that was on his bathroom floor. He states this happened just prior to arrival. He states the area is very sore and was bleeding, he states he cannot walk on his foot because of it. He reports his tetanus is up-to-date within 5 years. He denies any other injuries. He states he was barefoot when he stepped on the object. He has not a diabetic. He denies any other complaints. He states he is currently completing clindamycin for a dental infection, including today this would be 5 days remaining. - REPRODUCTIVE Reproductive: DENIES: : Past Medical History - General Information source: Patient - Social History Smoking Status: Never Smoker Chew tobacco use (# tins/day): No Frequency of alcohol use: None Drug Abuse: None Lives with: Family Family History: Reviewed & Not Pertinent, CAD, Other - father with CAD in his 50s and an unknown clotting disorder; uncle with unknown clotting disorder. Patient has homicidal ideation: No - Past Medical History Cardiac Medical History: Reports: Hx DVT, Hx Hypercholesterolemia, Hx Hypertension - on meds, Hx Pulmonary Embolism - was on Xarelto and Plavix, taken off both Oct 2018 Denies: Hx Coronary Artery Disease, Hx Heart Attack Pulmonary Medical History: Reports: Hx Asthma - ON MEDS, Hx Pneumonia, Hx Sleep Apnea Denies: Hx Bronchitis, Hx COPD Neurological Medical History: Reports: Hx Seizures - on depakote. Denies: Hx Cerebrovascular Accident, Hx Parkinson's Disease Endocrine Medical History: Reports: Hx Hypothyroidism Renal/ Medical History: Denies: Hx Peritoneal Dialysis GI Medical History: Reports: Hx Gastroesophageal Reflux Disease Musculoskeletal Medical History: Denies Hx Arthritis, Denies Hx Systemic Lupus Erythematosus Psychiatric Medical History: Reports: Hx Anxiety, Hx Bipolar Disorder, Hx Borderline Personality Disorder, Hx Depression, Hx Personality Disorder, Hx Schizoaffective Disorder, Hx Schizophrenia Traumatic Medical History: Reports: Hx Traumatic Brain Injury Past Surgical History: Reports: Hx Cardiac Surgery - cannot confirm, Hx Coronary Stent - cannot confirm, Hx Orthopedic Surgery - ORIF Left Ankle - Immunizations Immunizations up to date: Yes Hx Diphtheria, Pertussis, Tetanus Vaccination: Yes Hx Pneumococcal Vaccination: 10/31/13 Vertical Provider Document - CONSTITUTIONAL General Appearance: WD/WN, No Apparent Distress - INFECTION CONTROL TRAVEL OUTSIDE OF THE [place] IN LAST 30 DAYS: No - HEENT HEENT: Atraumatic, Normocephalic - NECK Neck: Normal Inspection - RESPIRATORY Respiratory: Breath Sounds Normal, No Respiratory Distress - CARDIOVASCULAR Cardiovascular: Regular Rate, Regular Rhythm - GI/ABDOMEN Gastrointestinal: Abdomen Soft, Abdomen Non-Tender. negative: Abdomen Tender - BACK Back: Normal Inspection - MUSCULOSKELETAL/EXTREMETIES Musculoskeletal/Extremeties: MAEW, FROM, Tender - Over the plantar aspect of the right foot at the heel there is a tiny area that appears to have been previously bleeding and a small gentry suggesting a puncture wound. Questionable small amount of swelling, small amount of tenderness. No overt foreign body noted, no other signs of trauma noted, unremarkable otherwise. Normal capillary refill, sensation, range of motion of the toes, foot, ankle, leg. - NEURO Level of Consciousness: Awake, Alert, Appropriate - DERM Integumentary: Warm, Dry, No Rash Course - Re-evaluation Re-evalutation: X-rays negative. On evaluating the x-ray there appears to possibly be a faintly seen foreign body in the same location of patient's complaint. However I cannot clearly feel this on exam and I discussed how this would likely be low probability of success if I attempted to remove this. In addition to this patient states that he is severely allergic to lidocaine. I feel that this is most likely not going to succeed. Patient will be placed on prophylactic antibiotics, provided with crutches, discussed care, follow-up, and return precautions. Patient states full agreement, he does not want me to try to remove this, he states agreement with care, understanding of follow-up and return precautions. Patient will complete his clindamycin which included today will be a 5-day course. - Vital Signs Vital signs: Temp Pulse Resp BP Pulse Ox 98.7 F 89 20 141/84 H 99 02/29/20 22:33 02/29/20 22:30 02/29/20 22:30 02/29/20 22:30 02/29/20 22:30 Discharge - Discharge Clinical Impression: Puncture wound of right foot Qualifiers: Encounter type: initial encounter Qualified Code(s): S91.331A - Puncture wound without foreign body, right foot, initial encounter Condition: Stable Disposition: HOME, SELF-CARE Additional Instructions: The x-ray is reassuring along with your evaluation. There could still be a small foreign body inside of the puncture wound, please take your clindamycin as prescribed to completion, keep the area clean and with a topical antibiotic dressing over the area. I recommend that you use crutches at least for the first 2 to 3 days. Initially elevate your foot as much as possible. Follow-up with primary care for additional management. Return for any concerning symptoms including severe swelling, spreading redness, discolored drainage, fever, or any other concerning symptoms. Referrals: MINOR RADFORD MD [Primary Care Provider] - Follow up as needed
--- NOTE | 2020-03-01 00:14 | RADIOLOGY REPORT (SQ) ---
Right foot radiographs: 02/29/2020 11:13 PM CDT TECHNIQUE: AP, lateral, oblique images of the right foot were obtained. COMPARISON: None available HISTORY: 29-year old patient with right foot pain. FINDINGS: The visualized soft tissues appear unremarkable. There are no acute osseous abnormalities to suggest a fracture or subluxation within the right foot. IMPRESSION: No acute osseous abnormality is seen within the right foot.
[2020-03-01 00:57] VITALS: BP 139/76
== END 2020-03-01 00:30 | disposition home or self-care (01) ==
LOC: ER 22:23
DX: S91.331A Puncture wound without foreign body, right foot, initial encounter (principal); X58.XXXA Exposure to other specified factors, initial encounter; M25.571 Pain in right ankle and joints of right foot; K04.7 Periapical abscess without sinus; I10 Essential (primary) hypertension; J45.909 Unspecified asthma, uncomplicated; Z88.4 Allergy status to anesthetic agent
CPT/HCPCS: 99283

== ENCOUNTER 2020-06-17 00:58 | Emergency (ER) | payer MEDICAID ==
--- NOTE | 2020-06-17 02:15 | ER Document Report ---
ED General - General Chief Complaint: Chest Pain Stated Complaint: CHEST PAIN Time Seen by Provider: 06/17/20 02:12 Primary Care Provider: MINOR RADFORD MD [Primary Care Provider] - Follow up as needed Mode of Arrival: Ambulatory Information source: Patient Notes: 06/17/20 01:48 - ED Nursing Note by WALTERALLENWilber Henriquez Num: [id number] : 1990 Patient Age: 29 around 1630 pt had squeezing pain in chest, pt was diaphoretic to the pain he had to take off his shirt. pt was just sitting when this started. pt has hx of HTN, DVT/PE, needs back surg., anxiety. speaking in full sentences. resp e/u, my notes 29-year-old male arrives with 6-hour left-sided chest pain radiating to his left forearm with a 10 out of 10 pain character. He also has tachypnea tachycardia shortness of breath and diaphoresis. Patient has had 3 pulmonary emboli in the past. His last was 3 years ago. He is also had 8 DVTs. He has a factor V Leyden deficiency. Patient also smoked for least 15 years until he began to vape 5 months ago. He stopped vaping 1 month ago. Today his psychiatrist increased his Adderall to 20 mg. When patient's pain began he took a Xanax thinking it was anxiety and then took some aspirin but his pain has continued. He denies any mopped phthisis denies any trauma denies any nausea or vomiting or diarrhea or constipation or abdominal pain. He denies any nuchal rigidity or cephalgia. He denies any skin rash animal bites snake bites tick bites or exposure to coronavirus which is now pandemic throughout the world. Patient reports he fell 20 feet from a ladder several years ago and has had back pain since then. He is followed by orthopedics who provides him for his oxycodones. He has 1 pill left. I advised him to talk to his orthopedic because I will not be writing him for narcotics today. He has a pain contract to for fill. TRAVEL OUTSIDE OF THE [place] IN LAST 30 DAYS: No - HPI Onset: This afternoon Onset/Duration: Sudden, Persistent, Worse Quality of pain: Achy Severity: Severe Pain Level: 4 Associated symptoms: Chest pain, Hurts to breath Exacerbated by: Movement Relieved by: Denies Similar symptoms previously: Yes Recently seen / treated by doctor: No - Related Data Allergies/Adverse Reactions: diphenhydramine HCl [From Benadryl] Allergy (Severe, Verified 02/22/20 02:55) Apnea haloperidol [From Haldol] Allergy (Severe, Verified 02/22/20 02:55) Rash, Apnea haloperidol lactate [From Haldol] Allergy (Severe, Verified 02/22/20 02:55) Rash, Apnea Heparin Analogues [Heparin Agents] Allergy (Severe, Verified 02/22/20 02:55) Anaphylaxis lamotrigine [From Lamictal] Allergy (Intermediate, Verified 02/22/20 02:55) rash cephalexin [From Keflex] Allergy (Verified 02/22/20 02:55) enoxaparin sodium [From Lovenox] Allergy (Verified 02/22/20 02:55) Rash hydroxyzine HCl [From Vistaril] Allergy (Verified 02/22/20 02:55) Apnea hydroxyzine pamoate [From Vistaril] Allergy (Verified 02/22/20 02:55) Apnea ketorolac [From Toradol] Allergy (Verified 02/22/20 02:55) lidocaine [Lidocaine] Allergy (Verified 02/22/20 02:55) sulfamethoxazole [From Bactrim] Allergy (Verified 02/22/20 04:28) tramadol Allergy (Verified 02/22/20 02:55) trimethoprim [From Bactrim] Allergy (Verified 02/22/20 04:28) paliperidone [From Invega] Adverse Reaction (Verified 02/22/20 02:55) Severe Hypertension propranolol [Propranolol] Adverse Reaction (Verified 02/22/20 02:55) Severe Hypotension warfarin sodium [From Coumadin] Adverse Reaction (Verified 02/22/20 02:55) "Did not work" onions Allergy (Severe, Uncoded 04/22/18 09:11) Anaphylaxis nicotine patch adhesive Allergy (Intermediate, Uncoded 04/22/18 09:11) Rash Home Medications: aedderal, xanax, oxycodone, ambien, tenex, levothryoxine, xaralto, wellbutrin Past Medical History - General Information source: Patient - Social History Smoking Status: Former Smoker Cigarette use (# per day): No Chew tobacco use (# tins/day): No Smoking Education Provided: No Frequency of alcohol use: Rare Drug Abuse: None Lives with: Family Family History: Reviewed & Not Pertinent, CAD, Other - father with CAD in his 50s and an unknown clotting disorder; uncle with unknown clotting disorder. Patient has suicidal ideation: No Patient has homicidal ideation: No - Past Medical History Cardiac Medical History: Reports: Hx DVT, Hx Hypercholesterolemia, Hx Hypertension - on meds, Hx Pulmonary Embolism - was on Xarelto and Plavix, taken off both Oct 2018 Denies: Hx Coronary Artery Disease, Hx Heart Attack Pulmonary Medical History: Reports: Hx Asthma - ON MEDS, Hx Pneumonia, Hx Sleep Apnea Denies: Hx Bronchitis, Hx COPD Neurological Medical History: Reports: Hx Seizures - on depakote. Denies: Hx Cerebrovascular Accident, Hx Parkinson's Disease Endocrine Medical History: Reports: Hx Hypothyroidism Renal/ Medical History: Denies: Hx Peritoneal Dialysis GI Medical History: Reports: Hx Gastroesophageal Reflux Disease Musculoskeletal Medical History: Denies Hx Arthritis, Denies Hx Systemic Lupus Erythematosus Psychiatric Medical History: Reports: Hx Anxiety, Hx Bipolar Disorder, Hx Borderline Personality Disorder, Hx Depression, Hx Personality Disorder, Hx Schizoaffective Disorder, Hx Schizophrenia Traumatic Medical History: Reports: Hx Traumatic Brain Injury Past Surgical History: Reports: Hx Cardiac Surgery - cannot confirm, Hx Coronary Stent - cannot confirm, Hx Orthopedic Surgery - ORIF Left Ankle - Immunizations Immunizations up to date: Yes Hx Diphtheria, Pertussis, Tetanus Vaccination: Yes Hx Pneumococcal Vaccination: 10/31/13 Review of Systems - Review of Systems Constitutional: See HPI, Weakness EENT: No symptoms reported Cardiovascular: See HPI, Chest pain, Palpitations, Heart racing, Orthopnea, Dyspnea, Dizziness, Lightheaded Respiratory: See HPI, Short of breath Gastrointestinal: No symptoms reported Genitourinary: No symptoms reported Male Genitourinary: No symptoms reported Musculoskeletal: No symptoms reported Skin: No symptoms reported Hematologic/Lymphatic: No symptoms reported Neurological/Psychological: No symptoms reported Physical Exam - Vital signs Vitals: Temp Pulse Resp BP Pulse Ox 98.4 F 132 H 22 H 152/99 H 100 06/17/20 01:18 06/17/20 01:18 06/17/20 01:18 06/17/20 01:18 06/17/20 01:18 Interpretation: Hypertensive, Tachycardic - HEENT Head: Normocephalic, Atraumatic Eyes: Normal Pupils: PERRL Mouth/Lips: Normal Mucous membranes: Normal Pharynx: Normal Neck: Normal - Respiratory Respiratory status: Tachypnea Chest status: Nontender Breath sounds: Normal Chest palpation: Normal - Cardiovascular Rhythm: Tachycardia Heart sounds: Normal auscultation Murmur: No - Abdominal Inspection: Normal Distension: No distension Bowel sounds: Normal Tenderness: Nontender Organomegaly: No organomegaly - Rectal Prostate: Other - deferred - Genitourinary Scrotum: Other - deferred - Back Back: Normal - Extremities General upper extremity: Normal inspection General lower extremity: Normal inspection - Neurological Neuro grossly intact: Yes Cognition: Normal Orientation: AAOx4 [place] Coma Scale Eye Opening: Spontaneous Amy Coma Scale Verbal: Oriented Amy Coma Scale Motor: Obeys Commands Amy Coma Scale Total: 15 Speech: Normal Motor strength normal: LUE, RUE, LLE, RLE Sensory: Normal - Psychological Associated symptoms: Anxious - Skin Skin Temperature: Warm Skin Moisture: Dry Course - Vital Signs Vital signs: Temp Pulse Resp BP Pulse Ox 98.4 F 132 H 23 H 110/86 H 100 06/17/20 01:18 06/17/20 01:18 06/17/20 02:01 06/17/20 02:01 06/17/20 02:10 - Laboratory Result Diagrams: 06/17/20 02:06 06/17/20 02:06 Laboratory results interpreted by me: 06/17/20 06/17/20 02:06 02:06 WBC 10.6 H RBC 6.08 H MCV 79 L Sodium 147.4 H Creatine Kinase 202 H Discharge - Discharge Clinical Impression: Tachycardia, Elevated CPK Chronic pain Qualifiers: Chronic pain type: chronic pain syndrome Qualified Code(s): G89.4 - Chronic pain syndrome Chest pain Qualifiers: Chest pain type: unspecified Qualified Code(s): R07.9 - Chest pain, unspecified Condition: Good Disposition: HOME, SELF-CARE Additional Instructions: Follow-up with your orthopedics for your narcotic pain pills. Return to ER if symptoms persist or worsen. Your tachycardia and elevated CPK appear to be pain mediated. After narcotics your tachycardia decreased. This would appear to be a mild narcotic withdrawal. Encourage fluids. Your CT scan was negative for pulmonary embolism and d-dimer was negative for any kind of clots. Prescriptions: Etodolac [Lodine] 400 mg PO BID #15 tablet Referrals: MINOR RADFORD MD [Primary Care Provider] - Follow up as needed
[2020-06-17 02:24] LABS: ABSOLUTE BASOPHILS # (AUTO) 0.1 10^3/uL (0.0-0.2); ABSOLUTE EOSINOPHILS # (AUTO) 0.2 10^3/uL (0.0-0.6); ABSOLUTE LYMPHOCYTES (AUTO) 2.1 10^3/uL (0.5-4.7); ABSOLUTE MONOCYTES (AUTO) 0.7 10^3/uL (0.1-1.4); ABSOLUTE NEUT (AUTO) 7.6 10^3/uL (1.7-8.2); BASOPHILS % (AUTO) 0.5 % (0-2); EOSINOPHILS % (AUTO) 1.5 % (0-6); HEMATOCRIT 48.3 % (37.9-51.0); HEMOGLOBIN 16.8 g/dL (13.5-17.0); LYMPHOCYTES % (AUTO) 19.8 % (13-45); MEAN CORPUSCULAR HEMOGLOBIN 27.6 pg (27.0-33.4); MEAN CORPUSCULAR HGB CONC 34.8 g/dL (32.0-36.0); MEAN CORPUSCULAR VOLUME 79 fl (80-97); MONOCYTES % (AUTO) 6.4 % (3-13); PLATELET COUNT 260 10^3/uL (150-450); RED BLOOD COUNT 6.08 10^6/uL (4.35-5.55); RED CELL DISTRIBUTION WIDTH 13.4 % (11.5-14.0); SEGMENTED NEUTROPHILS % (AUTO) 71.8 % (42-78); TOTAL CELLS COUNTED % (AUTO) 100 %; WHITE BLOOD COUNT 10.6 10^3/uL (4.0-10.5)
[2020-06-17] MEDS ORDERED: LORAZEPAM INJ 2 MG/1 ML VIAL IV ONE (02:24)
[2020-06-17] MEDS ORDERED: MORPHINE SULFATE 10 MG/ML INJ IV ONE ×2 (02:24→04:25)
[2020-06-17 02:34] LABS: ALBUMIN 4.8 g/dL (3.5-5.0); ALKALINE PHOSPHATASE 97 U/L (38-126); ANION GAP 15 (5-19); ASPARTATE AMINO TRANSFERASE 26 U/L (17-59); BILIRUBIN,TOTAL 0.7 mg/dL (0.2-1.3); BLOOD UREA NITROGEN 15 mg/dL (7-20); CALCIUM 9.6 mg/dL (8.4-10.2); CARBON DIOXIDE 26 mmol/L (22-30); CHLORIDE 106 mmol/L (98-107); CREATINE KINASE 202 U/L (55-170); GLUCOSE 92 mg/dL (75-110); INTERNATIONAL RATION (INR) 0.91; POTASSIUM 4.1 mmol/L (3.6-5.0); PROTHROMBIN TIME 12.5 SEC (11.4-15.4); TOTAL PROTEIN 8.2 g/dL (6.3-8.2)
[2020-06-17 02:35] LABS: PARTIAL THROMBOPLASTIN TIME 28.9 SEC (23.5-35.8)
[2020-06-17 02:51] LABS: D-DIMER < 0.27 ug/mL (0.00-0.50)
[2020-06-17 02:53] LABS: TROPONIN I < 0.012 ng/mL
--- NOTE | 2020-06-17 02:58 | RADIOLOGY REPORT (SQ) ---
EXAM DESCRIPTION: XR CHEST 2 VIEWS COMPLETED DATE/TME: 06/17/2020 00:00 CLINICAL HISTORY: chest pain COMPARISON: 02/16/2020 FINDINGS: Frontal and lateral radiographic views of the chest. Cardiomediastinal silhouette: Normal size and contour. Lungs: No consolidation, pneumothorax, or pleural effusion. Leads overlie the chest. Low lung volumes. Bones: No acute osseous abnormality. Upper abdomen: No abnormality identified. IMPRESSION: 1. No acute pulmonary process identified.
--- NOTE | 2020-06-17 03:35 | RADIOLOGY REPORT (SQ) ---
CT angiogram chest with contrast on 06/17/2020 at 2:48 AM CLINICAL INDICATION: Chest pain TECHNIQUE: Multiple axial images are obtained throughout the chest following the administration of IV contrast. Computer generated 3D reconstructions/MIPS were performed. This exam was performed according to our departmental dose-optimization program, which includes automated exposure control, adjustment of the mA and/or kV according to patient size and/or use of iterative reconstruction technique. Total DLP is 1574.91 mGy*cm. COMPARISON: 12/23/2014 FINDINGS: Bolus timing is unfortunately significantly suboptimal for evaluation of pulmonary embolus. No evidence of a large or central pulmonary embolus is noted and no definite peripheral pulmonary emboli are noted but would be difficult to fully exclude small peripheral pulmonary emboli on this exam. Limited visualized upper abdomen is unremarkable. There is no pleural or pericardial effusion. There is no thoracic aortic aneurysm or dissection. There is no thoracic adenopathy. The lungs are clear. No bony abnormality is noted. IMPRESSION: 1. Bolus timing is unfortunately suboptimal but no definite evidence of pulmonary embolus is noted. 2. No acute abnormality.
[2020-06-17 04:17] LABS: APPEARANCE,URINE SLIGHTLY-CLOUDY; BILIRUBIN,URINE NEGATIVE (NEGATIVE); GLUCOSE, URINE NEGATIVE (NEGATIVE); KETONES,URINE NEGATIVE (NEGATIVE); LEUKOCYTE ESTERASE,URINE NEGATIVE (NEGATIVE); NITRITE,URINE NEGATIVE (NEGATIVE); PROTEIN,URINE NEGATIVE (NEGATIVE); URINE SPECIFIC GRAVITY 1.057; UROBILINOGEN,URINE NEGATIVE mg/dL (<2.0)
[2020-06-17 04:18] LABS: COLOR,URINE YELLOW
[2020-06-17 04:23] VITALS: BP 104/50
[2020-06-17 04:31] LABS: URINE BARBITURATES SCREEN NEGATIVE; URINE BENZODIAZEPINES SCREEN NEGATIVE; URINE COCAINE SCREEN NEGATIVE; URINE MARIJUANA (THC) SCREEN NEGATIVE; URINE METHADONE SCREEN NEGATIVE; URINE PHENCYCLIDINE SCREEN NEGATIVE
[2020-06-17 04:37] LABS: URINE AMPHETAMINES SCREEN UNCONFIRMED POSITIVE
--- NOTE | 2020-06-17 09:37 | EKG REPORT ---
SEVERITY:- OTHERWISE NORMAL ECG - SINUS TACHYCARDIA RIGHT AXIS DEVIATION : Confirmed by: Ella Avendaño 17-Jun-2020 09:36:35
== END 2020-06-17 04:37 | disposition home or self-care (01) ==
LOC: ER 00:58
DX: R00.0 Tachycardia, unspecified (principal); R74.8 Abnormal levels of other serum enzymes; G89.4 Chronic pain syndrome; R07.9 Chest pain, unspecified; R61 Generalized hyperhidrosis; M79.602 Pain in left arm; R06.82 Tachypnea, not elsewhere classified; D68.2 Hereditary deficiency of other clotting factors; R00.2 Palpitations; R42 Dizziness and giddiness; I10 Essential (primary) hypertension; Z86.718 Personal history of other venous thrombosis and embolism; Z86.711 Personal history of pulmonary embolism; Z79.899 Other long term (current) drug therapy; Z87.891 Personal history of nicotine dependence; J45.909 Unspecified asthma, uncomplicated; Z79.01 Long term (current) use of anticoagulants
CPT/HCPCS: 93005; 96376; 99285; 96374; 96375; 36415; 82553; 82550; 85025; 85610; 85730; 80053; 81001; 84484; 80307; 85379; 71046; 71275; 93010; J2270; J2060

== ENCOUNTER 2020-06-19 15:28 | Observation (INO) | payer MEDICAID ==
--- NOTE | 2020-06-19 15:57 | RADIOLOGY REPORT (SQ) ---
EXAM DESCRIPTION: CT HEAD WITHOUT IMAGES COMPLETED DATE/TIME: 06/19/2020 3:43 pm REASON FOR STUDY: STROKE ALERT COMPARISON: 10/15/2018 TECHNIQUE: Axial images acquired through the brain without intravenous contrast. Images reviewed wi th bone, brain and subdural windows. Additional sagittal and coronal reconstructions were generated. Images stored on PACS. All CT scanners at this facility use dose modulation, iterative reconstruction, and/or weight based d osing when appropriate to reduce radiation dose to as low as reasonably achievable (ALARA). [facility]: Dose Right [facility]: CareDose [facility]: Dose Right [facility]: Teradose 4D [facility]: [employer] RADIATION DOSE: mGy. LIMITATIONS: None. FINDINGS: VENTRICLES: Normal size and contour. CEREBRUM: No masses. No hemorrhage. No midline shift. No evidence for acute infarction. Re- demons tration of right occipital lobe encephalomalacia. Hector- white matter differentiation and attenuation are otherwise normal. CEREBELLUM: No masses. No hemorrhage. No alteration of density. No evidence for acute infarction. EXTRAAXIAL SPACES: No fluid collections. No masses. ORBITS AND GLOBE: No intra- or extraconal masses. Normal contour of globe without masses. CALVARIUM: No fracture. PARANASAL SINUSES: No fluid or mucosal thickening. SOFT TISSUES: No mass or hematoma. OTHER: No other significant finding. IMPRESSION: No acute intracranial abnormalities. Re- demonstration of right occipital lobe encephal omalacia. EVIDENCE OF ACUTE STROKE: NO. COMMENT: Pertinent positive or negative findings of the imaging study reported as a CRITICAL EXAM krystal KIRAN DO at15:51 on 06/19/2020. Category of Critical Exam: Stroke code Quality ID # [id number]: Final reports with documentation of one or more dose reduction techniques (e.g., Au tomated exposure control, adjustment of the mA and/or kV according to patient size, use of iterative reconstruction technique) TECHNICAL DOCUMENTATION: JOB ID: [id number] 2010 [employer]- All Rights Reserved Reading location - IP/workstation name: [email or web address]
--- NOTE | 2020-06-19 15:58 | RADIOLOGY REPORT (SQ) ---
EXAM DESCRIPTION: CHEST SINGLE VIEW IMAGES COMPLETED DATE/TIME: 06/19/2020 3:46 pm REASON FOR STUDY: STROKE ALERT COMPARISON: 06/17/2020 EXAM PARAMETERS: NUMBER OF VIEWS: One view. TECHNIQUE: Single frontal radiographic view of the chest acquired. RADIATION DOSE: NA LIMITATIONS: None. FINDINGS: LUNGS AND PLEURA: No opacities, masses or pneumothorax. No pleural effusion. MEDIASTINUM AND HILAR STRUCTURES: No masses. Contour normal. HEART AND VASCULAR STRUCTURES: Heart normal in size. Normal vasculature. BONES: No acute findings. HARDWARE: None in the chest. OTHER: No other significant finding. IMPRESSION: NO ACUTE RADIOGRAPHIC FINDING IN THE CHEST. TECHNICAL DOCUMENTATION: JOB ID: [id number] 2010 [employer]- All Rights Reserved Reading location - IP/workstation name: [email or web address]
--- NOTE | 2020-06-19 16:04 | ER Document Report ---
ED NIH Stroke Scale - NIH Stroke Scale When completed:: Before Alteplase *: 1. NIH scale should be completed with appropriate accompanying assessment tools. *: 2. The NIH should reflect what the patient is capable of doing and should not be coached by the clinician. 1a. Level of Consciousness: 0=Alert;keenly responsive -: 1=Drowsy -: 2=Obtunded -: 3=Coma/unresponsive or reflex to noxious stimuli. 1a. Responses: 0 1b. Orientation Questions: a. What month is it? -: b. How old are you? -: 0=Answers both questions correctly. -: 1=Answers one question correctly or patient is intubated or has orotracheal trauma. -: 2=Answers neither question correctly. 1b. Responses: 2 1c. Response to commands: a. Open and close eyes? -: b. Control System Manager and release hand? -: Credit is given despite weakness. Demonstration of task is permitted. Substitute command if hands cannot be used. -: 0=Performs both tasks correctly -: 1=Performs one task correctly -: 2=Performs neither task correctly 1c. Responses: 2 2. Gaze: Establish eye contact and instruct patient to "Follow my finger" -: 0=Normal -: 1=Partial gaze palsy. Gaze is abnormal in one or both eyes, but where forced deviation or total gaze paresis is not present. -: 2=Forced deviation or total gaze paresis. 2. Responses: 0 3. Visual Singh: Sees fingers in all four quadrants. -: 0=No visual loss. -: 1=Partial hemianopsia. -: 2=Complete hemianopsia. -: 3=Bilateral hemianopsia (including Cortical blindness) 3. Responses: 0 4. Facial Movement: Instruct patient to: -: a. Show me your teeth -: b. Raise your eyebrows -: c. Close your eyes -: d. Smile -: 0=Normal symmetrical movement -: 1=Minor paralysis (flattened nasolabial fold, asymmetry on smiling). -: 2=Partial paralysis (total or near total paralysis of lower face). -: 3=Complete paralysis of upper and lower face 4. Responses: 2 5. Motor functions (left arm): Alternate sides and extend each arm with palms down (90 degrees if sitting or 45 degrees for supine). -: 0=No drift;limb holds for full 10 seconds. -: 1=Drift; limb holds but drifts down before full 10 seconds, but does not hit bed. -: 2=Some effort against gravity; limb cannot get to or maintain position. -: 3=No effort against gravity; limb falls. -: 4=No movement. -: UN=Amputation, joint fusion, explain in comments. 5. Responses (left arm): 2 5. Motor Functions (right arm): Alternate sides and extend each arm with palms down (90 degrees if sitting or 45 degrees for supine). -: 0=No drift;limb holds for full 10 seconds. -: 1=Drift; limb holds but drifts down before full 10 seconds, but does not hit bed. -: 2=Some effort against gravity; limb cannot get to or maintain position. -: 3=No effort against gravity; limb falls. -: 4=No movement. -: UN=Amputation, joint fusion, explain in comments. 5. Responses (right arm): 4 6. Motor Functions (left leg): With patient lying supine, alternate sides and extend each leg (30 degrees always while supine). -: 0=No drift, leg holds position for full 5 seconds -: 1=Drift; leg falls before full 5 seconds but does not hit bed. -: 2=Some effort against gravity, leg falls to bed but some effort against gravity. -: 3=No effort against gravity, leg falls to bed immediately. -: 4=No movement. -: UN=Amputation, joint fusion; explain in comments. 6. Responses (left leg): 4 6. Motor Functions (right leg): With patient lying supine, alternate sides and extend each leg (30 degrees always while supine). -: 0=No drift, leg holds position for full 5 seconds -: 1=Drift; leg falls before full 5 seconds but does not hit bed. -: 2=Some effort against gravity, leg falls to bed but some effort against gravity. -: 3=No effort against gravity, leg falls to bed immediately. -: 4=No movement. -: UN=Amputation, joint fusion; explain in comments. 6. Responses (right leg): 4 7. Limb Ataxia: With eyes open instruct patient to: -: a. "Touch your finger to your nose". -: b. "Touch your heel to your soto" -: 0=Absent -: 1=Present in one limb. -: 2=Present in two limbs. -: UN=Amputation or joint fusion; explain in comments. 7. Responses: 0 8. Sensory: Test sensation using pinprick or noxious stimuli. Test as many body parts as possible. -: 0=Normal;no sensory loss -: 1=Mile to moderate sensory loss (patient feels pin prick but is less sharp on affected side). -: 2=Severe or total sensory loss. 8. Responses: 0 9. Best Language: Instruct patient to: -: a. "Describe what you see in this picture." -: b. "Name the items in this picture." -: c. "Read these sentences." -: 0=No aphasia, normal -: 1=Mild to moderate aphasia. -: 2=Severe aphasia -: 3=Mute, global aphasia, no usable speech or auditory comprehension. 9. Responses: 3 10. Articulation, Dysarthia: Instruct patient to: -: "Read these words" or "Repeat these words" -: 0=Normal -: 1=Mild to moderate; patient may slur some words but can be understood without difficulty. -: 2=Severe; patients speech so slurred as to be unintelligible in the absence of dysphasia. -: UN=Intubated or other physical barrier, explain in comments. 10. Responses: 2 11. Extinction or inattention: 0=No abnormality -: 1= Visual, tactile, auditory, spatial, or personal inattention or extinction to bilateral simulation in one or the sensory modalities. -: 2=Profound lyric-inattention or lyric-inattention to more than one modality; does not recognize own hand. 11. Responses: 0 Total Score: 25
[2020-06-19 16:10] LABS: INTERNATIONAL RATION (INR) 0.89
[2020-06-19 16:11] LABS: PARTIAL THROMBOPLASTIN TIME 25.7 SEC (23.5-35.8)
[2020-06-19 16:13] LABS: PROTHROMBIN TIME 12.3 SEC (11.4-15.4)
[2020-06-19 16:16] LABS: ABSOLUTE EOSINOPHILS # (AUTO) 0.1 10^3/uL (0.0-0.6); ABSOLUTE LYMPHOCYTES (AUTO) 1.8 10^3/uL (0.5-4.7); ABSOLUTE MONOCYTES (AUTO) 0.5 10^3/uL (0.1-1.4); ABSOLUTE NEUT (AUTO) 5.7 10^3/uL (1.7-8.2); BASOPHILS % (AUTO) 0.5 % (0-2); EOSINOPHILS % (AUTO) 0.7 % (0-6); HEMATOCRIT 48.6 % (37.9-51.0); HEMOGLOBIN 16.9 g/dL (13.5-17.0); LYMPHOCYTES % (AUTO) 22.6 % (13-45); MEAN CORPUSCULAR HEMOGLOBIN 27.5 pg (27.0-33.4); MEAN CORPUSCULAR HGB CONC 34.9 g/dL (32.0-36.0); MEAN CORPUSCULAR VOLUME 79 fl (80-97); MONOCYTES % (AUTO) 6.6 % (3-13); PLATELET COUNT 269 10^3/uL (150-450); RED BLOOD COUNT 6.15 10^6/uL (4.35-5.55); RED CELL DISTRIBUTION WIDTH 13.6 % (11.5-14.0); SEGMENTED NEUTROPHILS % (AUTO) 69.6 % (42-78); TOTAL CELLS COUNTED % (AUTO) 100 %; WHITE BLOOD COUNT 8.2 10^3/uL (4.0-10.5)
[2020-06-19 16:28] LABS: ALBUMIN 5.2 g/dL (3.5-5.0); ALKALINE PHOSPHATASE 115 U/L (38-126); ANION GAP 15 (5-19); ASPARTATE AMINO TRANSFERASE 22 U/L (17-59); BILIRUBIN,DIRECT 0.1 mg/dL (0.0-0.4); BLOOD UREA NITROGEN 15 mg/dL (7-20); CALCIUM 10.1 mg/dL (8.4-10.2); CARBON DIOXIDE 26 mmol/L (22-30); CHLORIDE 106 mmol/L (98-107); CREATINE KINASE 168 U/L (55-170); GLUCOSE 113 mg/dL (75-110); POTASSIUM 4.1 mmol/L (3.6-5.0); TOTAL PROTEIN 8.5 g/dL (6.3-8.2)
[2020-06-19 16:32] LABS: ACETAMINOPHEN < 10 ug/mL (10-30); ALCOHOL < 10 mg/dL (NONE DETECTED); SALICYLATE < 1.0 mg/dL (2.0-20.0)
[2020-06-19 16:47] LABS: TROPONIN I < 0.012 ng/mL
[2020-06-19] MEDS ORDERED: NORMAL SALINE 1000 ML 1,000 ML IV ONE (17:20)
--- NOTE | 2020-06-19 18:38 | EKG REPORT ---
SEVERITY:- NORMAL ECG - SINUS RHYTHM : Confirmed by: Ella Avendaño 19-Jun-2020 18:38:12
--- NOTE | 2020-06-19 18:40 | ER Document Report ---
ED General <AUBREE RIVERA - Last Filed: 06/19/20 21:07> - General Mode of Arrival: Ambulatory Information source: Patient, Parent, Relative TRAVEL OUTSIDE OF THE [place] IN LAST 30 DAYS: No - HPI Onset: Just prior to arrival Onset/Duration: Sudden Quality of pain: No pain Associated symptoms: Slow to respond, Weakness Exacerbated by: Denies Relieved by: Denies Similar symptoms previously: No Recently seen / treated by doctor: Yes <BETO KIRAN - Last Filed: 06/20/20 10:14> - General Chief Complaint: S/S of Possible Stroke Stated Complaint: POSSIBLE STROKE Notes: Patient is a 29-year-old male presenting to the emergency department chief complaint of altered mental status. Patient was seen 2 days ago for chest pain at this facility today was going to a follow-up visit at a local urgent care clinic friend at his side stated that they were talking normally and suddenly around 1400 the patient began to have speech difficulties confusion and tremors. She was able to get the patient to the hospital for evaluation. At time of presentation patient is showing marked altered mental status does not follow commands does not respond appropriately and is having obvious word finding difficulties. Patient is tearful because it seems like he understands that he is not getting words to come out correctly. (BETO KIRAN) - Related Data Allergies/Adverse Reactions: diphenhydramine HCl [From Benadryl] Allergy (Severe, Verified 02/22/20 02:55) Apnea haloperidol [From Haldol] Allergy (Severe, Verified 02/22/20 02:55) Rash, Apnea haloperidol lactate [From Haldol] Allergy (Severe, Verified 02/22/20 02:55) Rash, Apnea Heparin Analogues [Heparin Agents] Allergy (Severe, Verified 02/22/20 02:55) Anaphylaxis lamotrigine [From Lamictal] Allergy (Intermediate, Verified 02/22/20 02:55) rash cephalexin [From Keflex] Allergy (Verified 02/22/20 02:55) enoxaparin sodium [From Lovenox] Allergy (Verified 02/22/20 02:55) Rash hydroxyzine HCl [From Vistaril] Allergy (Verified 02/22/20 02:55) Apnea hydroxyzine pamoate [From Vistaril] Allergy (Verified 02/22/20 02:55) Apnea ketorolac [From Toradol] Allergy (Verified 02/22/20 02:55) lidocaine [Lidocaine] Allergy (Verified 02/22/20 02:55) sulfamethoxazole [From Bactrim] Allergy (Verified 02/22/20 04:28) tramadol Allergy (Verified 02/22/20 02:55) trimethoprim [From Bactrim] Allergy (Verified 02/22/20 04:28) paliperidone [From Invega] Adverse Reaction (Verified 02/22/20 02:55) Severe Hypertension propranolol [Propranolol] Adverse Reaction (Verified 02/22/20 02:55) Severe Hypotension warfarin sodium [From Coumadin] Adverse Reaction (Verified 02/22/20 02:55) "Did not work" onions Allergy (Severe, Uncoded 04/22/18 09:11) Anaphylaxis nicotine patch adhesive Allergy (Intermediate, Uncoded 04/22/18 09:11) Rash Past Medical History - General Information source: Patient, Parent, Relative, [facility] Records Cannot obtain history due to: Altered mental status - Social History Smoking Status: Current Some Day Smoker Cigarette use (# per day): Yes Smoking Education Provided: Yes Frequency of alcohol use: None Drug Abuse: Other - Prior history Lives with: Family Family History: Reviewed & Not Pertinent, CAD, Other - father with CAD in his 50s and an unknown clotting disorder; uncle with unknown clotting disorder. Patient has suicidal ideation: No Patient has homicidal ideation: No - Past Medical History Cardiac Medical History: Reports: Hx DVT, Hx Hypercholesterolemia, Hx Hypertension - on meds, Hx Pulmonary Embolism - was on Xarelto and Plavix, taken off both Oct 2018 Denies: Hx Coronary Artery Disease, Hx Heart Attack Pulmonary Medical History: Reports: Hx Asthma - ON MEDS, Hx Pneumonia, Hx Sleep Apnea Denies: Hx Bronchitis, Hx COPD Neurological Medical History: Reports: Hx Seizures - on depakote. Denies: Hx Cerebrovascular Accident, Hx Parkinson's Disease Endocrine Medical History: Reports: Hx Hypothyroidism Renal/ Medical History: Denies: Hx Peritoneal Dialysis GI Medical History: Reports: Hx Gastroesophageal Reflux Disease Musculoskeletal Medical History: Denies Hx Arthritis, Denies Hx Systemic Lupus Erythematosus Psychiatric Medical History: Reports: Hx Anxiety, Hx Bipolar Disorder, Hx Borderline Personality Disorder, Hx Depression, Hx Personality Disorder, Hx Schizoaffective Disorder, Hx Schizophrenia Traumatic Medical History: Reports: Hx Traumatic Brain Injury Past Surgical History: Reports: Hx Cardiac Surgery - cannot confirm, Hx Coronary Stent - cannot confirm, Hx Orthopedic Surgery - ORIF Left Ankle - Immunizations Immunizations up to date: Yes Hx Diphtheria, Pertussis, Tetanus Vaccination: Yes Hx Pneumococcal Vaccination: 10/31/13 <BETO KIRAN - Last Filed: 06/20/20 10:14> Review of Systems <BETO KIRAN - Last Filed: 06/20/20 10:14> - Review of Systems Notes: REVIEW OF SYSTEMS: CONSTITUTIONAL : Denies fever, chills, or sweats. Denies recent illness. EENT: Denies eye, ear, throat, or mouth pain or symptoms. Denies nasal or sinus congestion. CARDIOVASCULAR: Denies chest pain. RESPIRATORY: Denies cough, cold, or chest congestion. Denies shortness of breath, difficulty breathing, or wheezing. GASTROINTESTINAL: Denies abdominal pain. Denies nausea, vomiting, or diarrhea. Denies constipation. GENITOURINARY: Denies difficulty urinating, painful urination, burning, frequency, or blood in urine. MUSCULOSKELETAL: Denies neck or back pain or joint pain or swelling. SKIN: Denies rash or skin lesions. HEMATOLOGIC : Denies easy bruising or bleeding. NEUROLOGICAL: Per HPI PSYCHIATRIC: Denies suicidal or homicidal ideations 10 Systems are negative unless otherwise specified above (BETO KIRAN) Physical Exam <BETO KIRAN - Last Filed: 06/20/20 10:14> - Vital signs Vitals: Resp 30 H 06/19/20 15:31 - Notes Notes: PHYSICAL EXAMINATION: GENERAL: Patient is a 29-year-old male in obvious neurologic distress HEAD: Atraumatic, normocephalic. EYES: Pupils equal round and reactive to light, extraocular movements intact, sclera anicteric, conjunctiva are normal. ENT: nares patent, oropharynx clear without exudates. Dry mucous membranes. NECK: Normal range of motion, supple without lymphadenopathy, no appreciable JVD LUNGS: Lungs clear to auscultation bilaterally and equal. No wheezes rales or rhonchi. HEART: Tachycardic rate and rhythm without murmurs ABDOMEN: Soft, nontender, normal bowel sounds. No guarding, no rebound. No mas ses appreciated. EXTREMITIES: No pitting or edema. No cyanosis. 2+ pulses x4 NEUROLOGICAL: There is no facial asymmetry there is no nystagmus patient is exhibiting word finding difficulties, patient does not follow commands but when asked to lift his arm there does appear to be some attempt but no successful movement on either side together or separately this same occurs with the lower extremities. SKIN: Warm, Dry, and intact. Normal turgor, no rashes or lesions noted. (BETO KIRAN) Course - Laboratory Result Diagrams: 06/19/20 15:32 06/19/20 15:32 <AUBREE RIVERA - Last Filed: 06/19/20 21:07> - Laboratory Result Diagrams: 06/20/20 06:07 06/20/20 06:07 - Diagnostic Test Radiology reviewed: Reports reviewed - EKG Interpretation by Me EKG shows normal: Sinus rhythm Rate: Normal Rhythm: NSR When compared to previous EKG there are: Changes noted <BETO KIRAN - Last Filed: 06/20/20 10:14> - Re-evaluation Re-evalutation: 06/19/20 20:34 Upon presentation patient was immediately sent to CAT scan for CT of brain. Upon return IV access was obtained blood work was obtained and sent EKG portable chest x-ray and CT brain were obtained. CT brain demonstrates no obvious new acute abnormalities. I did speak with neurology on-call at [facility] after discussing the patient's presenting symptoms I was informed that this does not appear to be a stroke because of the global illness of the symptoms however if I felt compelled MRA MRI of the brain would be appropriate. This was accomplished and subsequently read as negative for acute findings. Laboratory studies do not show any abnormal findings. The patient was refusing urinalysis or a catheterization but finally has acquiesced. Urinalysis is negative currently urine drug screen is pending. Patient was given 1 L of normal saline for hydration. Patient has been maintained on a radiation monitor the entire time in the emergency department. Patient has been reevaluated multiple times by myself and nursing staff. I have admitted multiple conversations with the patient's friend his sister and his mother in regards to his baseline. I have reviewed the patient's prior medical records. At this time because of severe alteration in the patient's baseline mental status I feel patient needs to be admitted to the hospital for further monitoring and management. I spoke to the hospitalist who is agreeable with this care plan. (BETO KIRAN) - Vital Signs Vital signs: Temp Pulse Resp BP Pulse Ox 98.2 F 86 18 134/90 H 100 06/20/20 08:00 06/20/20 08:00 06/20/20 08:00 06/20/20 08:00 06/20/20 08:00 - Laboratory Laboratory results interpreted by me: 06/19/20 06/19/20 15:32 15:32 RBC 6.15 H MCV 79 L Sodium 147.1 H Glucose 113 H Total Protein 8.5 H Albumin 5.2 H Salicylates < 1.0 L Acetaminophen < 10 L Critical Care Note - Critical Care Note Total time excluding time spent on procedures (mins): 45 <BETO KIRAN - Last Filed: 06/20/20 10:14> - Critical Care Note Comments: Please allow 45 minutes of critical care time spent obtaining history from patient or surrogate, discussions with consultants, development of treatment plan with patient or surrogate, evaluation of patient's response to treatment, examination of patient. This also includes ordering and reviewing laboratory, EKG and / or radiologic studies, performing and reassessing treatments and interventions as well as reviewing previous visits and old charts. This is exclusive of separately billable procedures. (BETO KIRAN) Discharge <AUBREE RIVERA - Last Filed: 06/19/20 21:07> - Discharge Admitting Provider: Viviana (Hospitalist) Unit Admitted: Medical Floor <BETO KIRAN - Last Filed: 06/20/20 10:14> - Discharge Clinical Impression: Altered mental status Qualifiers: Altered mental status type: disorientation Qualified Code(s): R41.0 - Disorientation, unspecified Condition: Fair Disposition: ADMITTED OBSERVATION
--- NOTE | 2020-06-19 19:31 | RADIOLOGY REPORT (SQ) ---
EXAM DESCRIPTION: MRI HEAD WITHOUT IMAGES COMPLETED DATE/TIME: 06/19/2020 6:19 pm REASON FOR STUDY: cva. COMPARISON: CT head same date. CT head 10/15/2018. TECHNIQUE: Multiplanar imaging includes non-contrasted T1, T2, FLAIR, and diffusion with ADC map seq uences. Images stored on PACS. LIMITATIONS: None. FINDINGS: ANATOMY: No anomalies. Normal vascular flow voids. Pituitary fossa normal. CSF SPACES: Normal in size and contour. No hemorrhage. CEREBRUM: Sulci and gyri normal in size and contour. Chronic encephalomalacia and gliosis in the rig ht occipital low with volume loss of the sulci, stable in appearance from previous examinations. Oth erwise normal white matter signal on FLAIR imaging. No evidence of hemorrhage, mass, or extraaxial f luid collection. POSTERIOR FOSSA: No signal alteration. No hemorrhage. No edema, masses or mass effect. Internal jovani tory canals, cerebello-pontine angles, mastoids normal. DIFFUSION IMAGING: Negative for acute or sub-acute infarction. ORBITS: No masses. Globes normal. PARANASAL SINUSES: No fluid levels. Mucosa normal. OTHER: No other significant finding. IMPRESSION: 1. No acute ischemia, mass, mass effect or evidence of acute intracranial hemorrhage. 2. 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 EVIDENCE OF ACUTE STROKE: NO. TECHNICAL DOCUMENTATION: JOB ID: [id number] 2010 [employer]- All Rights Reserved Reading location - IP/workstation name: [email or web address]
--- NOTE | 2020-06-19 19:34 | RADIOLOGY REPORT (SQ) ---
EXAM DESCRIPTION: MRA HEAD WITHOUT IMAGES COMPLETED DATE/TIME: 06/19/2020 6:19 pm REASON FOR STUDY: cva COMPARISON: None. TECHNIQUE: Axial 3-D ridx-nv-nuxeub acquisition imaging performed through the brain in the area of t he [place]. Images reformatted using 3-D MIPS. LIMITATIONS: None. FINDINGS: SOURCE IMAGES: No unexpected findings on source images. No large masses. 3-D MIP: No aneurysm. No occlusions. No significant stenosis. No left posterior communicating priya ry, anal congenital variant. OTHER: No other significant finding. IMPRESSION: NORMAL MRA OF THE [place]. TECHNICAL DOCUMENTATION: JOB ID: [id number] 2010 [employer]- All Rights Reserved Reading location - IP/workstation name: [email or web address]
--- NOTE | 2020-06-19 19:37 | RADIOLOGY REPORT (SQ) ---
EXAM DESCRIPTION: MRA NECK COMBO IMAGES COMPLETED DATE/TIME: 06/19/2020 6:19 pm REASON FOR STUDY: cva. Hypertension. Word finding difficulty, frustration, garbled speech. Blood pressure 183/171. COMPARISON: None. TECHNIQUE: MRA of the carotid and vertebral arteries was performed using 2D and 3D gada-pu-zsxbbd te chniques without and with the use of gadolinium. 3-D MIPs performed at the workstation and stored on PACS. CONTRAST TYPE AND DOSE: 20 mL ProHance RENAL FUNCTION: Not indicated. ACR Type II contrast agent associated with few, if any, unconfounded cases of NSF LIMITATIONS: None. FINDINGS: GREAT VESSEL ORIGINS: Normal. No stenoses. VERTEBRAL ARTERIES: No stenoses. No evidence for aneurysm or dissection. RIGHT CAROTID SYSTEM: No significant stenosis. LEFT CAROTID SYSTEM: No significant stenosis. OTHER: No other significant finding. IMPRESSION: NORMAL MRA OF THE CAROTIDS WITH AND WITHOUT CONTRAST. COMMENT: Quality ID #[id number]: Measurements of distal internal carotid diameter were used as the denomina tor for stenosis measurement. TECHNICAL DOCUMENTATION: JOB ID: [id number] 2010 [employer]- All Rights Reserved Reading location - IP/workstation name: [email or web address]
[2020-06-19 19:57] LABS: APPEARANCE,URINE SLIGHTLY-CLOUDY; BILIRUBIN,URINE NEGATIVE (NEGATIVE); COLOR,URINE YELLOW; GLUCOSE, URINE NEGATIVE (NEGATIVE); KETONES,URINE NEGATIVE (NEGATIVE); LEUKOCYTE ESTERASE,URINE NEGATIVE (NEGATIVE); NITRITE,URINE NEGATIVE (NEGATIVE); PROTEIN,URINE NEGATIVE (NEGATIVE); URINE SPECIFIC GRAVITY 1.021; UROBILINOGEN,URINE NEGATIVE mg/dL (<2.0)
[2020-06-19 20:28] LABS: URINE AMPHETAMINES SCREEN NEGATIVE; URINE BARBITURATES SCREEN NEGATIVE; URINE BENZODIAZEPINES SCREEN NEGATIVE; URINE COCAINE SCREEN NEGATIVE; URINE MARIJUANA (THC) SCREEN NEGATIVE; URINE METHADONE SCREEN NEGATIVE; URINE PHENCYCLIDINE SCREEN NEGATIVE
[2020-06-19] MEDS ORDERED: DEXTROSE 5%-LACTATED RINGERS 1,000 ML IV PRN (21:30)
[2020-06-19] MEDS ORDERED: PROMETHAZINE HCL INJ 25 MG/1 ML VIAL IV PRN (21:30)
[2020-06-19] MEDS ORDERED: HYDRALAZINE HCL INJ/PF 20 MG/1 ML SDV IV PRN (21:35)
[2020-06-19] MEDS ORDERED: CHLORPROMAZINE HCL INJ 25 MG/1 ML AMPULE IV PRN (21:35)
[2020-06-19] MEDS ORDERED: ACETAMINOPHEN 650 MG SUPP.RECT PR PRN (21:35)
[2020-06-19] MEDS: PANTOPRAZOLE SODIUM 40 MG VIAL IV SCH (22:07)
[2020-06-20] MEDS: LORAZEPAM INJ 2 MG/1 ML VIAL IV PRN ×3 (00:12→11:53)
--- NOTE | 2020-06-20 00:37 | PDOC H&P ---
History of Present Illness Admission Date/PCP: 06/19/2020 21:00 No local PCP Patient complains of: Altered mental status History of Present Illness: KARLEY CHOW is a 29 year old male who presented to the emergency room with acute alteration of his mental status. He has severe expressive and receptive aphasia able to contribute to his medical history. His friend reports that he was going to an urgent care clinic for follow-up of a recent ER visit for chest pain when Mr. Chow suddenly stopped talking, was unable to speak, seemed confused and was slightly tremorous though awake. This event occurred at approximately 2 PM and the patient has remained unchanged since that time. In the emergency room he was found to have no obvious cause of his acute neurologic status change with a negative MRI and MRA of the head as well as unremarkable laboratory evaluations and drug screens. Patient was subsequently admitted to the hospital for further evaluation and treatment. Past Medical History Past Medical History: Patient is unable to provide information to his past medical history, surgical history, social history and family history therefore information presented is obtained from the best available reliable source. Cardiac Medical History: Reports: DVT, Hyperlipidema, Hypertension - on meds, Pulmonary Embolism - was on Xarelto and Plavix, taken off both Oct 2018 Denies: Atrial Fibrillation, Congestive Heart Failure, Coronary Artery Disease, Myocardial Infarction Pulmonary Medical History: Reports: Asthma - ON MEDS, Pneumonia, Sleep Apnea Denies: Bronchitis, Chronic Obstructive Pulmonary Disease (COPD) EENT Medical History: Denies: Cataracts, Ears - Hearing aids Neurological Medical History: Reports: Seizures - on depakote Denies: Hemorrhagic CVA, Ischemic CVA, Migraine, Multiple Sclerosis Endocrine Medical History: Reports: Hypothyroidism, Obesity Denies: Diabetes Mellitus Type 1, Diabetes Mellitus Type 2, Hyperthyroidism Renal/ Medical History: Reports: Other - Acute renal failure episode(s) Denies: Chronic Kidney Disease, Nephrolithiasis Malignancy Medical History: Reports: None GI Medical History: Reports: Gastroesophageal Reflux Disease Denies: Cirrhosis, Hepatitis, Peptic Ulcer Disease Musculoskeltal Medical History: Reports: Other - Chronic pain syndrome Denies: Arthritis, Gout Skin Medical History: Denies: Eczema, Psoriasis Psychiatric Medical History: Reports: Alcohol Dependency, Bipolar Disorder, Depression, Personality Disorder, Schizoaffective Disorder, Tobacco Dependency, Other - Schizophrenia Denies: Substance Abuse Traumatic Medical History: Reports: Traumatic Brain Injury Hematology: Reports: Other - Factor V Leiden disorder Denies: Anemia, Bleeding Tendencies Infectious Medical History: Reports: None Past Surgical History Past Surgical History: Reports: Orthopedic Surgery - ORIF bilateral ankles, Other - Incision and drainage of abscess right forearm Social History Information Source: [facility] Records Lives with: Family Smoking Status: Current Every Day Smoker Electronic Cigarette use?: Yes - Quit in early 2019 Frequency of Alcohol Use: None - Remote history of alcoholism Hx Recreational Drug Use: No Drugs: None - Remote history of marijuana use Hx Prescription Drug Abuse: No - Advance Directive Resuscitation Status: Full Code Surrogate healthcare decision maker:: Dia Lama Family History Family History: CAD, COPD, Hypertension, Other - Renal failure, schizophrenia, depression, clotting disorders Parental Family History Reviewed: Yes Children Family History Reviewed: No Sibling(s) Family History Reviewed.: Yes Medication/Allergy Allergies/Adverse Reactions: diphenhydramine HCl [From Benadryl] Allergy (Severe, Verified 02/22/20 02:55) Apnea haloperidol [From Haldol] Allergy (Severe, Verified 02/22/20 02:55) Rash, Apnea haloperidol lactate [From Haldol] Allergy (Severe, Verified 02/22/20 02:55) Rash, Apnea Heparin Analogues [Heparin Agents] Allergy (Severe, Verified 02/22/20 02:55) Anaphylaxis lamotrigine [From Lamictal] Allergy (Intermediate, Verified 02/22/20 02:55) rash cephalexin [From Keflex] Allergy (Verified 02/22/20 02:55) enoxaparin sodium [From Lovenox] Allergy (Verified 02/22/20 02:55) Rash hydroxyzine HCl [From Vistaril] Allergy (Verified 02/22/20 02:55) Apnea hydroxyzine pamoate [From Vistaril] Allergy (Verified 02/22/20 02:55) Apnea ketorolac [From Toradol] Allergy (Verified 02/22/20 02:55) lidocaine [Lidocaine] Allergy (Verified 02/22/20 02:55) sulfamethoxazole [From Bactrim] Allergy (Verified 02/22/20 04:28) tramadol Allergy (Verified 02/22/20 02:55) trimethoprim [From Bactrim] Allergy (Verified 02/22/20 04:28) paliperidone [From Invega] Adverse Reaction (Verified 02/22/20 02:55) Severe Hypertension propranolol [Propranolol] Adverse Reaction (Verified 02/22/20 02:55) Severe Hypotension warfarin sodium [From Coumadin] Adverse Reaction (Verified 02/22/20 02:55) "Did not work" onions Allergy (Severe, Uncoded 04/22/18 09:11) Anaphylaxis nicotine patch adhesive Allergy (Intermediate, Uncoded 04/22/18 09:11) Rash Review of Systems ROS unobtainable: Due to mental status - Acute expressive and receptive aphasia Physical Exam Vital Signs: Temp Pulse Resp BP Pulse Ox 87 21 H 127/86 H 100 06/19/20 18:00 06/19/20 20:01 06/19/20 20:01 06/19/20 20:01 Intake & Output 06/17/20 06/18/20 06/19/20 23:59 23:59 23:59 Intake Total 1000 Balance 1000 Weight 149 kg General appearance: PRESENT: mild distress - Occasionally tearful, morbidly obese Head exam: PRESENT: atraumatic, normocephalic Eye exam: PRESENT: conjunctiva pink. ABSENT: conjunctival injection, scleral icterus Ear exam: PRESENT: normal external ear exam. ABSENT: bleeding, drainage Mouth exam: PRESENT: dry mucosa, neck supple Neck exam: ABSENT: thyromegaly, tracheal deviation Respiratory exam: PRESENT: clear to auscultation margaux, symmetrical, unlabored Cardiovascular exam: PRESENT: RRR. ABSENT: clicks, gallop, rubs Pulses: PRESENT: normal radial pulses, normal dorsalis pedis pul Vascular exam: PRESENT: normal capillary refill. ABSENT: pallor GI/Abdominal exam: PRESENT: normal bowel sounds, soft Rectal exam: PRESENT: deferred Extremities exam: ABSENT: joint swelling, pedal edema Musculoskeletal exam: ABSENT: deformity, dislocation Neurological exam: PRESENT: altered - Acutely aphasic, awake, CN II-XII grossly intact, aphasic - Expressive and receptive aphasia Psychiatric exam: PRESENT: depressed - Tearful at times, unusual affect Skin exam: PRESENT: dry, intact, warm. ABSENT: jaundice, rash, urticaria Results Laboratory Results: 06/19/20 15:32 06/19/20 15:32 06/19/20 06/19/20 06/19/20 15:32 15:32 19:34 WBC 8.2 RBC 6.15 H Hgb 16.9 Hct 48.6 MCV 79 L MCH 27.5 MCHC 34.9 RDW 13.6 Plt Count 269 Seg Neutrophils % 69.6 Sodium 147.1 H Potassium 4.1 Chloride 106 Carbon Dioxide 26 Anion Gap 15 BUN 15 Creatinine 1.03 Est GFR ( Amer) > 60 Glucose 113 H Calcium 10.1 Total Bilirubin 1.0 AST 22 Alkaline Phosphatase 115 Total Protein 8.5 H Albumin 5.2 H Urine Color YELLOW Urine Appearance SLIGHTLY-CLOUDY Urine pH 8.0 Ur Specific [place] 1.021 Urine Protein NEGATIVE Urine Glucose (UA) NEGATIVE Urine Ketones NEGATIVE Urine Blood NEGATIVE Urine Nitrite NEGATIVE Ur Leukocyte Esterase NEGATIVE Urine WBC (Auto) 1 Urine RBC (Auto) 2 06/19/20 06/19/20 15:32 15:32 Creatine Kinase 168 CK-MB (CK-2) 1.40 Troponin I < 0.012 Impressions: Chest X-Ray 06/19/20 00:00 IMPRESSION: NO ACUTE RADIOGRAPHIC FINDING IN THE CHEST. Head CT 06/19/20 00:00 IMPRESSION: No acute intracranial abnormalities. Re- demonstration of right occipital lobe encephalomalacia. EVIDENCE OF ACUTE STROKE: NO. Brain MRI with MRA 06/19/20 16:33 IMPRESSION: NORMAL MRA OF THE [place]. Neck MRA 06/19/20 16:33 IMPRESSION: NORMAL MRA OF THE [place] WITH AND WITHOUT CONTRAST. Head MRI 06/19/20 16:34 IMPRESSION: 1. No acute ischemia, mass, mass effect or evidence of acute intracranial hemorrhage. 2. 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 EVIDENCE OF ACUTE STROKE: NO. Assessment and Plan - Diagnosis (1) Altered mental status Qualifiers: Altered mental status type: disorientation Qualified Code(s): R41.0 - Disorientation, unspecified Is this a current diagnosis for this admission?: Yes (2) Schizoaffective disorder Qualifiers: Schizoaffective disorder type: bipolar Qualified Code(s): F25.0 - Schizoaffective disorder, bipolar type Is this a current diagnosis for this admission?: Yes (3) Hypothyroidism Qualifiers: Hypothyroidism type: unspecified Qualified Code(s): E03.9 - Hypothyroidism, unspecified Is this a current diagnosis for this admission?: Yes (4) Hyperlipidemia Qualifiers: Hyperlipidemia type: unspecified Qualified Code(s): E78.5 - Hyperlipidemia, unspecified Is this a current diagnosis for this admission?: Yes (5) Hypertension Qualifiers: Hypertension type: essential hypertension Qualified Code(s): I10 - Essential (primary) hypertension Is this a current diagnosis for this admission?: Yes (6) History of pulmonary embolism Is this a current diagnosis for this admission?: Yes (7) History of DVT (deep vein thrombosis) Is this a current diagnosis for this admission?: Yes (8) Chronic pain Qualifiers: Chronic pain type: chronic pain syndrome Qualified Code(s): G89.4 - Chronic pain syndrome Is this a current diagnosis for this admission?: Yes (9) Morbid obesity with BMI of 45.0-49.9, adult Is this a current diagnosis for this admission?: Yes - Plan Summary Summary: Patient will be admitted to the medical floor he will receive routine supportive and symptomatic cares. He will receive Ativan 1 mg IV every 4 hours as needed for anxiety or restlessness. He will receive Thorazine 25 mg IV every 8 hours as needed for severe agitation or aggressive behavior. He will receive IV fluids utilizing D5LR at 167 mL/h. CBCs, metabolic profiles and additional laboratory and/or radiographic evaluations will be obtained as necessary. Any hypertension that may occur will be treated with IV hydralazine as required. The patient will be n.p.o. initially until he can be evaluated by the speech therapist for his ability to swallow. Neurochecks will be performed every 4 hours. A speech therapy and case management consultation will be obtained. I strongly suspect this is is a conversion reaction and the patient will be observed for signs of improvement. - Time Time Spent with patient: Less than 15 minutes Medications reviewed and adjusted accordingly: Yes Anticipated Discharge Disposition: Undetermined Anticipated Discharge Timeframe: Undetermined - Inpatient Certification Based on my medical assessment, after consideration of the patient's comorbidities, presenting symptoms, or acuity I expect that the services needed warrant INPATIENT care.: Yes I certify that my determination is in accordance with my understanding of Medicare's requirements for reasonable and necessary INPATIENT services [42 CFR 412.3e].: Yes Medical Necessity: Significant Comorbidiites Make Outpatient Treatment Too Risky, Need Close Monitoring Due to Risk of Patient Decompensation, Need For IV Fluids, Need for Neurological Checks, Risk of Complication if Not Cared For in Hospital
[2020-06-20] MEDS ORDERED: RIVAROXABAN 10 MG TABLET PO ONE (01:00)
[2020-06-20] MEDS: OXYCODONE HCL IR 5 MG TABLET PO SCH ×3 (01:02→11:53)
[2020-06-20] MEDS ORDERED: OXYCODONE HCL IR 5 MG TABLET PO SCH (06:00)
[2020-06-20 06:42] LABS: HEMATOCRIT 45.1 % (37.9-51.0); HEMOGLOBIN 15.3 g/dL (13.5-17.0); MEAN CORPUSCULAR HEMOGLOBIN 27.1 pg (27.0-33.4); MEAN CORPUSCULAR HGB CONC 33.8 g/dL (32.0-36.0); MEAN CORPUSCULAR VOLUME 80 fl (80-97); PLATELET COUNT 221 10^3/uL (150-450); RED BLOOD COUNT 5.63 10^6/uL (4.35-5.55); RED CELL DISTRIBUTION WIDTH 13.5 % (11.5-14.0); WHITE BLOOD COUNT 7.1 10^3/uL (4.0-10.5)
[2020-06-20 07:06] LABS: ALBUMIN 4.2 g/dL (3.5-5.0); ALKALINE PHOSPHATASE 92 U/L (38-126); ANION GAP 13 (5-19); ASPARTATE AMINO TRANSFERASE 18 U/L (17-59); BILIRUBIN,TOTAL 0.8 mg/dL (0.2-1.3); BLOOD UREA NITROGEN 15 mg/dL (7-20); CALCIUM 9.3 mg/dL (8.4-10.2); CARBON DIOXIDE 22 mmol/L (22-30); CHLORIDE 110 mmol/L (98-107); CHOLESTEROL 175.47 mg/dL (0-200); GLUCOSE 104 mg/dL (75-110); TRIGLYCERIDES 137 mg/dL (<150)
[2020-06-20 07:17] LABS: DIRECT LDL 119 mg/dL (<100)
[2020-06-20 07:22] LABS: FREE T3 4.11 pg/mL (2.77-5.27)
[2020-06-20 07:36] LABS: THYROID STIMULATING HORMONE 2.64 uIU/mL (0.47-4.68)
[2020-06-20] MEDS: PANTOPRAZOLE SODIUM 40 MG VIAL IV SCH (10:51)
--- NOTE | 2020-06-20 14:54 | PDOC DISCHARGE SUMMARY ---
Impression - Admit/DC Date/PCP Admission Date/Primary Care Provider: 06/19/20 22:06 VICKI NAYAK MD Discharge Date: 06/20/20 - Discharge Diagnosis (1) Altered mental status Is this a current diagnosis for this admission?: Yes (2) Schizoaffective disorder Is this a current diagnosis for this admission?: Yes (3) Hypertension Is this a current diagnosis for this admission?: Yes (4) Hyperlipidemia Is this a current diagnosis for this admission?: Yes (5) Hypothyroidism Is this a current diagnosis for this admission?: Yes (6) History of DVT (deep vein thrombosis) Is this a current diagnosis for this admission?: Yes (7) History of pulmonary embolism Is this a current diagnosis for this admission?: Yes (8) Morbid obesity with BMI of 45.0-49.9, adult Is this a current diagnosis for this admission?: Yes - Assessment Summary: Patient will be admitted to the medical floor he will receive routine supportive and symptomatic cares. He will receive Ativan 1 mg IV every 4 hours as needed for anxiety or restlessness. He will receive Thorazine 25 mg IV every 8 hours as needed for severe agitation or aggressive behavior. He will receive IV fluids utilizing D5LR at 167 mL/h. CBCs, metabolic profiles and additional laboratory and/or radiographic evaluations will be obtained as necessary. Any hypertension that may occur will be treated with IV hydralazine as required. The patient will be n.p.o. initially until he can be evaluated by the speech therapist for his ability to swallow. Neurochecks will be performed every 4 hours. A speech therapy and case management consultation will be obtained. I strongly suspect this is is a conversion reaction and the patient will be observed for signs of improvement. - Additional Information Resuscitation Status: Full Code Discharge Diet: Regular Discharge Activity: Activity As Tolerated Referrals: GABBY STEEL DO [NO LOCAL MD] - 06/23/20 3:15 pm Home Medications: Rivaroxaban [Xarelto 10 mg Tablet] 20 mg PO WSUPPER tablet 06/20/20 Rivaroxaban [Xarelto] 20 mg PO QHS 06/20/20 History of Present Illiness History of Present Illness: KARLEY CHOW is a 29 year old male who presented to the emergency room with acute alteration of his mental status. He has severe expressive and receptive aphasia able to contribute to his medical history. His friend reports that he was going to an urgent care clinic for follow-up of a recent ER visit for chest pain when Mr. Chow suddenly stopped talking, was unable to speak, seemed confused and was slightly tremorous though awake. This event occurred at approximately 2 PM and the patient has remained unchanged since that time. In the emergency room he was found to have no obvious cause of his acute neurologic status change with a negative MRI and MRA of the head as well as unremarkable laboratory evaluations and drug screens. Patient was subsequently admitted to the hospital for further evaluation and treatment. Hospital Course Hospital Course: spontaneously regained speech. was interacting appropriately this morning. Stable for discharge Physical Exam Vital Signs: Temp Pulse Resp BP Pulse Ox 98.6 F 88 22 H 133/70 H 100 06/20/20 11:22 06/20/20 11:22 06/20/20 11:22 06/20/20 11:22 06/20/20 11:22 Intake & Output 06/19/20 06/20/20 06/21/20 06:59 06:59 06:59 Intake Total 1800 1230 Balance 1800 1230 Weight 149 kg General appearance: PRESENT: no acute distress Respiratory exam: PRESENT: clear to auscultation margaux, symmetrical, unlabored. ABSENT: rales, rhonchi, tachypnea, wheezes Cardiovascular exam: PRESENT: RRR, +S1, +S2. ABSENT: bradycardia, diastolic murmur, irregular rhythm, systolic murmur, tachycardia GI/Abdominal exam: PRESENT: normal bowel sounds, soft. ABSENT: distended, tenderness Neurological exam: PRESENT: alert, awake, oriented to person, oriented to place, oriented to situation, CN II-XII grossly intact Psychiatric exam: PRESENT: flat affect. ABSENT: agitated, anxious Results Laboratory Results: WBC 7.1 10^3/uL (4.0-10.5) 06/20/20 06:07 RBC 5.63 10^6/uL (4.35-5.55) H 06/20/20 06:07 Hgb 15.3 g/dL (13.5-17.0) 06/20/20 06:07 Hct 45.1 % (37.9-51.0) 06/20/20 06:07 MCV 80 fl (80-97) 06/20/20 06:07 MCH 27.1 pg (27.0-33.4) 06/20/20 06:07 MCHC 33.8 g/dL (32.0-36.0) 06/20/20 06:07 RDW 13.5 % (11.5-14.0) 06/20/20 06:07 Plt Count 221 10^3/uL (150-450) 06/20/20 06:07 Lymph % (Auto) 22.6 % (13-45) 06/19/20 15:32 [place] % (Auto) 6.6 % (3-13) 06/19/20 15:32 Eos % (Auto) 0.7 % (0-6) 06/19/20 15:32 Baso % (Auto) 0.5 % (0-2) 06/19/20 15:32 Absolute Neuts (auto) 5.7 10^3/uL (1.7-8.2) 06/19/20 15:32 Absolute Lymphs (auto) 1.8 10^3/uL (0.5-4.7) 06/19/20 15:32 Absolute Monos (auto) 0.5 10^3/uL (0.1-1.4) 06/19/20 15:32 Absolute Eos (auto) 0.1 10^3/uL (0.0-0.6) 06/19/20 15:32 Absolute Basos (auto) 0.0 10^3/uL (0.0-0.2) 06/19/20 15:32 Seg Neutrophils % 69.6 % (42-78) 06/19/20 15:32 PT 12.3 SEC (11.4-15.4) 06/19/20 15:32 INR 0.89 06/19/20 15:32 APTT 25.7 SEC (23.5-35.8) 06/19/20 15:32 Sodium 144.6 mmol/L (137-145) 06/20/20 06:07 Potassium 4.0 mmol/L (3.6-5.0) 06/20/20 06:07 Chloride 110 mmol/L (98-107) H 06/20/20 06:07 Carbon Dioxide 22 mmol/L (22-30) 06/20/20 06:07 Anion Gap 13 (5-19) 06/20/20 06:07 BUN 15 mg/dL (7-20) 06/20/20 06:07 Creatinine 0.93 mg/dL (0.52-1.25) 06/20/20 06:07 Est GFR ( Amer) > 60 (>60) 06/20/20 06:07 Est GFR (MDRD) Non-Af > 60 (>60) 06/20/20 06:07 Glucose 104 mg/dL (75-110) 06/20/20 06:07 Calcium 9.3 mg/dL (8.4-10.2) 06/20/20 06:07 Magnesium 2.2 mg/dL (1.6-2.3) 06/20/20 06:07 Total Bilirubin 0.8 mg/dL (0.2-1.3) 06/20/20 06:07 Direct Bilirubin 0.0 mg/dL (0.0-0.4) 06/20/20 06:07 Neonat Total Bilirubin Not Reportable 06/20/20 06:07 Neonat Direct Bilirubin Not Reportable 06/20/20 06:07 Neonat Indirect Bili Not Reportable 06/20/20 06:07 AST 18 U/L (17-59) 06/20/20 06:07 ALT 21 U/L (<50) 06/20/20 06:07 Alkaline Phosphatase 92 U/L (38-126) 06/20/20 06:07 Creatine Kinase 168 U/L (55-170) 06/19/20 15:32 CK-MB (CK-2) 1.40 ng/mL (<4.55) 06/19/20 15:32 Troponin I < 0.012 ng/mL 06/19/20 15:32 Total Protein 7.0 g/dL (6.3-8.2) 06/20/20 06:07 Albumin 4.2 g/dL (3.5-5.0) 06/20/20 06:07 Triglycerides 137 mg/dL (<150) 06/20/20 06:07 Cholesterol 175.47 mg/dL (0-200) 06/20/20 06:07 LDL Cholesterol Direct 119 mg/dL (<100) H 06/20/20 06:07 VLDL Cholesterol 27.0 mg/dL (10-31) 06/20/20 06:07 HDL Cholesterol 41 mg/dL (>40) 06/20/20 06:07 TSH 2.64 uIU/mL (0.47-4.68) 06/20/20 06:07 Free T3 pg/mL 4.11 pg/mL (2.77-5.27) 06/20/20 06:07 Urine Color YELLOW 06/19/20 19:34 Urine Appearance SLIGHTLY-CLOUDY 06/19/20 19:34 Urine pH 8.0 (5.0-9.0) 06/19/20 19:34 Ur Specific [place] 1.021 06/19/20 19:34 Urine Protein NEGATIVE mg/dL (NEGATIVE) 06/19/20 19:34 Urine Glucose (UA) NEGATIVE mg/dL (NEGATIVE) 06/19/20 19:34 Urine Ketones NEGATIVE mg/dL (NEGATIVE) 06/19/20 19:34 Urine Blood NEGATIVE (NEGATIVE) 06/19/20 19:34 Urine Nitrite NEGATIVE (NEGATIVE) 06/19/20 19:34 Urine Bilirubin NEGATIVE (NEGATIVE) 06/19/20 19:34 Urine Urobilinogen NEGATIVE mg/dL (<2.0) 06/19/20 19:34 Ur Leukocyte Esterase NEGATIVE (NEGATIVE) 06/19/20 19:34 Urine WBC (Auto) 1 /HPF 06/19/20 19:34 Urine RBC (Auto) 2 /HPF 06/19/20 19:34 Urine Mucus (Auto) RARE /LPF 06/19/20 19:34 Urine Ascorbic Acid NEGATIVE (NEGATIVE) 06/19/20 19:34 Salicylates < 1.0 mg/dL (2.0-20.0) L 06/19/20 15:32 Urine Opiates Screen NEGATIVE 06/19/20 19:34 Urine Methadone Screen NEGATIVE 06/19/20 19:34 Acetaminophen < 10 ug/mL (10-30) L 06/19/20 15:32 Ur Barbiturates Screen NEGATIVE 06/19/20 19:34 Ur Phencyclidine Scrn NEGATIVE 06/19/20 19:34 Ur Amphetamines Screen NEGATIVE 06/19/20 19:34 U Benzodiazepines Scrn NEGATIVE 06/19/20 19:34 Urine Cocaine Screen NEGATIVE 06/19/20 19:34 U Marijuana (THC) Screen NEGATIVE 06/19/20 19:34 Serum Alcohol < 10 mg/dL (NONE DETECTED) 06/19/20 15:32 06/19/20 15:32 CK-MB (CK-2) 1.40 Troponin I < 0.012 Impressions: Chest X-Ray 06/19/20 00:00 IMPRESSION: NO ACUTE RADIOGRAPHIC FINDING IN THE CHEST. Head CT 06/19/20 00:00 IMPRESSION: No acute intracranial abnormalities. Re- demonstration of right occipital lobe encephalomalacia. EVIDENCE OF ACUTE STROKE: NO. Brain MRI with MRA 06/19/20 16:33 IMPRESSION: NORMAL MRA OF THE [place]. Neck MRA 06/19/20 16:33 IMPRESSION: NORMAL MRA OF THE [place] WITH AND WITHOUT CONTRAST. Head MRI 06/19/20 16:34 IMPRESSION: 1. No acute ischemia, mass, mass effect or evidence of acute intracranial hemorrhage. 2. 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 EVIDENCE OF ACUTE STROKE: NO. Plan Health Concerns: Needs to follow-up with psychiatry Plan of Treatment: no changes in meds Goals: follow-up with PCP Time Spent: Less than 30 Minutes Stroke Is this a Stroke Patient?: No Acute Heart Failure - Is this a Heart Failure Patient?: No
[2020-06-20 15:13] VITALS: BP 134/90
[2020-06-20] MEDS ORDERED: RIVAROXABAN 10 MG TABLET PO SCH (17:00)
== END 2020-06-20 13:24 | disposition home or self-care (01) ==
LOC: ER 15:28 → EH 22:06 → 4W 06-20 00:02
PROVIDERS: ADMIT Emergency Medicine; ATTEND Hospitalist
DX: R41.0 Disorientation, unspecified (principal); F25.0 Schizoaffective disorder, bipolar type; I10 Essential (primary) hypertension; E78.5 Hyperlipidemia, unspecified; E03.9 Hypothyroidism, unspecified; E66.01 Morbid (severe) obesity due to excess calories; R47.01 Aphasia; G93.89 Other specified disorders of brain; R56.9 Unspecified convulsions; J45.909 Unspecified asthma, uncomplicated; D68.51 Activated protein C resistance; G89.4 Chronic pain syndrome; F10.21 Alcohol dependence, in remission; F17.210 Nicotine dependence, cigarettes, uncomplicated; Z86.718 Personal history of other venous thrombosis and embolism; Z86.711 Personal history of pulmonary embolism; Z68.42 Body mass index [BMI] 45.0-49.9, adult; Z79.02 Long term (current) use of antithrombotics/antiplatelets; Z87.820 Personal history of traumatic brain injury; Z82.49 Family history of ischemic heart disease and other diseases of the circulatory system; Z83.2 Family history of diseases of the blood and blood-forming organs and certain disorders involving the immune mechanism
CPT/HCPCS: 93005; 99291; 96360; 96361; 36415 ×2; 82553; 80307 ×4; 82550; 83735; 84443; 85025; 85027; 85610; 85730; 80053 ×2; 81001; 84484; 84481; 80061; 70551; 70544; 70549; 71045; 70450; 93010; 92523; G0378; A9576; J2060; C9113 ×2; J7121; J7030; J3490

== ENCOUNTER 2020-09-22 12:53 | Emergency (ER) | payer MEDICAID ==
--- NOTE | 2020-09-22 14:20 | ER Document Report ---
ED Medical Screen (RME) - General Chief Complaint: Nausea/Vomiting/Diarrhea Stated Complaint: DIARRHEA,BODY ACHES,FEVER Time Seen by Provider: 09/22/20 14:08 Primary Care Provider: VICKI NAYAK MD [Primary Care Provider] - Follow up as needed TRAVEL OUTSIDE OF THE [place] IN LAST 30 DAYS: No - HPI Notes: Patient is a 30-year-old male who presents with vomiting and diarrhea for the past 3 days. He also reports chest pain, nausea, fever, and myalgia. He denies any shortness of breath. He states he has been taking 2.5 g of Tylenol every 6 hours to help with his fever and body aches. He has a history of prior Tylenol overdose but denies any suicidal ideation. He has a history of 5 DVTs and 3 PEs and is currently on blood thinners (Xarelto). - Related Data Allergies/Adverse Reactions: diphenhydramine HCl [From Benadryl] Allergy (Severe, Verified 09/22/20 14:08) Apnea haloperidol [From Haldol] Allergy (Severe, Verified 09/22/20 14:08) Rash, Apnea haloperidol lactate [From Haldol] Allergy (Severe, Verified 09/22/20 14:08) Rash, Apnea Heparin Analogues [Heparin Agents] Allergy (Severe, Verified 09/22/20 14:08) Anaphylaxis lamotrigine [From Lamictal] Allergy (Intermediate, Verified 09/22/20 14:08) rash cephalexin [From Keflex] Allergy (Verified 09/22/20 14:08) enoxaparin sodium [From Lovenox] Allergy (Verified 09/22/20 14:08) Rash hydroxyzine HCl [From Vistaril] Allergy (Verified 09/22/20 14:08) Apnea hydroxyzine pamoate [From Vistaril] Allergy (Verified 09/22/20 14:08) Apnea ketorolac [From Toradol] Allergy (Verified 09/22/20 14:08) lidocaine [Lidocaine] Allergy (Verified 09/22/20 14:08) sulfamethoxazole [From Bactrim] Allergy (Verified 09/22/20 14:08) tramadol Allergy (Verified 09/22/20 14:08) trimethoprim [From Bactrim] Allergy (Verified 09/22/20 14:08) paliperidone [From Invega] Adverse Reaction (Verified 09/22/20 14:08) Severe Hypertension propranolol [Propranolol] Adverse Reaction (Verified 09/22/20 14:08) Severe Hypotension warfarin sodium [From Coumadin] Adverse Reaction (Verified 09/22/20 14:08) "Did not work" onions Allergy (Severe, Uncoded 09/22/20 14:08) Anaphylaxis nicotine patch adhesive Allergy (Intermediate, Uncoded 09/22/20 14:08) Rash Past Medical History - Past Medical History Cardiac Medical History: Reports: Hx DVT, Hx Hypercholesterolemia, Hx Hypertension - on meds, Hx Pulmonary Embolism - was on Xarelto and Plavix, taken off both Oct 2018 Denies: Hx Atrial Fibrillation, Hx Congestive Heart Failure, Hx Coronary Artery Disease, Hx Heart Attack Pulmonary Medical History: Reports: Hx Asthma - ON MEDS, Hx Pneumonia, Hx Sleep Apnea Denies: Hx Bronchitis, Hx COPD Neurological Medical History: Reports: Hx Seizures - on depakote. Denies: Hx Cerebrovascular Accident, Hx Migraine, Hx Parkinson's Disease Endocrine Medical History: Reports: Hx Hypothyroidism. Denies: Hx Diabetes Mellitus Type 1, Hx Diabetes Mellitus Type 2, Hx Hyperthyroidism Renal/ Medical History: Denies: Hx Peritoneal Dialysis GI Medical History: Reports: Hx Gastroesophageal Reflux Disease. Denies: Hx Cirrhosis, Hx Hepatitis Musculoskeltal Medical History: Denies Hx Arthritis, Denies Hx Gout, Denies Hx Systemic Lupus Erythematosus Skin Medical History: Denies Hx Eczema, Denies Hx Psoriasis Psychiatric Medical History: Reports: Hx Anxiety, Hx Bipolar Disorder, Hx Borderline Personality Disorder, Hx Depression, Hx Personality Disorder, Hx Schizoaffective Disorder, Hx Schizophrenia Traumatic Medical History: Reports: Hx Traumatic Brain Injury Infectious Medical History: Denies: Hx Hepatitis Past Surgical History: Reports: Hx Cardiac Surgery - cannot confirm, Hx Coronary Stent - cannot confirm, Hx Orthopedic Surgery - ORIF Left Ankle, Other - Incision and drainage of abscess right forearm - Immunizations Immunizations up to date: Yes Hx Diphtheria, Pertussis, Tetanus Vaccination: Yes Physical Exam - Vital signs Vitals: Temp Pulse Resp BP Pulse Ox 98.5 F 93 20 153/109 H 97 09/22/20 13:17 09/22/20 13:17 09/22/20 13:17 09/22/20 13:17 09/22/20 13:17 - Respiratory Respiratory status: No respiratory distress Breath sounds: Normal - Cardiovascular Rhythm: Regular Heart sounds: Normal auscultation Course - Re-evaluation Re-evalutation: I have greeted and performed a rapid initial assessment of this patient. A comprehensive ED assessment and evaluation of the patient, analysis of test results and completion of medical decision making process will be conducted by an additional ED providers. - Vital Signs Vital signs: Temp Pulse Resp BP Pulse Ox 98.5 F 93 20 153/109 H 97 09/22/20 13:17 09/22/20 13:17 09/22/20 13:17 09/22/20 13:17 09/22/20 13:17 Doctor's Discharge - Discharge Referrals: VICKI NAYAK MD [Primary Care Provider] - Follow up as needed
[2020-09-22 15:15] LABS: ABSOLUTE BASOPHILS # (AUTO) 0.1 10^3/uL (0.0-0.2); ABSOLUTE EOSINOPHILS # (AUTO) 0.3 10^3/uL (0.0-0.6); ABSOLUTE LYMPHOCYTES (AUTO) 2.2 10^3/uL (0.5-4.7); ABSOLUTE MONOCYTES (AUTO) 0.7 10^3/uL (0.1-1.4); ABSOLUTE NEUT (AUTO) 5.9 10^3/uL (1.7-8.2); HEMATOCRIT 42.8 % (37.9-51.0); HEMOGLOBIN 14.9 g/dL (13.5-17.0); LYMPHOCYTES % (AUTO) 24.3 % (13-45); MEAN CORPUSCULAR HEMOGLOBIN 27.3 pg (27.0-33.4); MEAN CORPUSCULAR HGB CONC 34.7 g/dL (32.0-36.0); MEAN CORPUSCULAR VOLUME 79 fl (80-97); MONOCYTES % (AUTO) 7.6 % (3-13); PLATELET COUNT 216 10^3/uL (150-450); RED BLOOD COUNT 5.44 10^6/uL (4.35-5.55); RED CELL DISTRIBUTION WIDTH 13.7 % (11.5-14.0); SEGMENTED NEUTROPHILS % (AUTO) 64.1 % (42-78); TOTAL CELLS COUNTED % (AUTO) 100 %; WHITE BLOOD COUNT 9.2 10^3/uL (4.0-10.5)
[2020-09-22 15:23] LABS: APPEARANCE,URINE CLEAR; BILIRUBIN,URINE NEGATIVE (NEGATIVE); COLOR,URINE YELLOW; GLUCOSE, URINE NEGATIVE (NEGATIVE); KETONES,URINE NEGATIVE (NEGATIVE); LEUKOCYTE ESTERASE,URINE NEGATIVE (NEGATIVE); NITRITE,URINE NEGATIVE (NEGATIVE); PROTEIN,URINE NEGATIVE (NEGATIVE); URINE SPECIFIC GRAVITY 1.032; UROBILINOGEN,URINE NEGATIVE mg/dL (<2.0)
--- NOTE | 2020-09-22 15:25 | RADIOLOGY REPORT (SQ) ---
EXAM DESCRIPTION: CHEST SINGLE VIEW IMAGES COMPLETED DATE/TIME: 09/22/2020 3:14 pm REASON FOR STUDY: chest pain COMPARISON: 06/19/2020 EXAM PARAMETERS: NUMBER OF VIEWS: One view. TECHNIQUE: Single frontal radiographic view of the chest acquired. RADIATION DOSE: NA LIMITATIONS: None. FINDINGS: LUNGS AND PLEURA: No opacities, masses or pneumothorax. No pleural effusion. MEDIASTINUM AND HILAR STRUCTURES: No masses. Contour normal. HEART AND VASCULAR STRUCTURES: Heart normal in size. Normal vasculature. BONES: No acute findings. HARDWARE: None in the chest. OTHER: No other significant finding. IMPRESSION: NO ACUTE RADIOGRAPHIC FINDING IN THE CHEST. TECHNICAL DOCUMENTATION: JOB ID: [id number] 2010 [employer]- All Rights Reserved Reading location - IP/workstation name: [email or web address]
[2020-09-22 15:30] LABS: ALBUMIN 4.3 g/dL (3.5-5.0); ALKALINE PHOSPHATASE 107 U/L (38-126); ANION GAP 11 (5-19); ASPARTATE AMINO TRANSFERASE 20 U/L (17-59); BILIRUBIN,DIRECT 0.2 mg/dL (0.0-0.4); BILIRUBIN,TOTAL 0.5 mg/dL (0.2-1.3); BLOOD UREA NITROGEN 18 mg/dL (7-20); CALCIUM 8.9 mg/dL (8.4-10.2); CARBON DIOXIDE 25 mmol/L (22-30); CHLORIDE 107 mmol/L (98-107); GLUCOSE 103 mg/dL (75-110); POTASSIUM 4.1 mmol/L (3.6-5.0)
[2020-09-22 15:32] LABS: ACETAMINOPHEN < 10 ug/mL (10-30)
[2020-09-22 15:58] LABS: A TYPE INFLUENZA AG NEGATIVE (NEGATIVE); B INFLUENZA AG NEGATIVE (NEGATIVE)
[2020-09-22] MEDS ORDERED: ONDANSETRON HCL INJ/PF 4 MG/2 ML SDV IV ONE (17:24)
[2020-09-22] MEDS ORDERED: NORMAL SALINE 1000 ML 1,000 ML IV PRN (18:07)
[2020-09-22] MEDS ORDERED: OXYCODONE HCL IR 5 MG TABLET PO ONE (18:24)
--- NOTE | 2020-09-22 18:28 | ER Document Report ---
ED General - General Chief Complaint: Nausea/Vomiting/Diarrhea Stated Complaint: DIARRHEA,BODY ACHES,FEVER Time Seen by Provider: 09/22/20 14:08 Primary Care Provider: VICKI NAYAK MD [Primary Care Provider] - Follow up as needed TRAVEL OUTSIDE OF THE [place] IN LAST 30 DAYS: No - HPI Notes: Chief complaint: Nausea vomiting and generalized weakness. History of present illness: 30-year-old male with history of schizophrenia and previous pulmonary embolus presents now with 2-day history of intermittent vomiting and generalized myalgias. He has had no clear-cut exposure to Covid but is concerned about this nonetheless. He denies any cough or shortness of breath. Patient has chronic pain syndrome and takes OxyContin at home. - Related Data Allergies/Adverse Reactions: diphenhydramine HCl [From Benadryl] Allergy (Severe, Verified 09/22/20 14:08) Apnea haloperidol [From Haldol] Allergy (Severe, Verified 09/22/20 14:08) Rash, Apnea haloperidol lactate [From Haldol] Allergy (Severe, Verified 09/22/20 14:08) Rash, Apnea Heparin Analogues [Heparin Agents] Allergy (Severe, Verified 09/22/20 14:08) Anaphylaxis lamotrigine [From Lamictal] Allergy (Intermediate, Verified 09/22/20 14:08) rash cephalexin [From Keflex] Allergy (Verified 09/22/20 14:08) enoxaparin sodium [From Lovenox] Allergy (Verified 09/22/20 14:08) Rash hydroxyzine HCl [From Vistaril] Allergy (Verified 09/22/20 14:08) Apnea hydroxyzine pamoate [From Vistaril] Allergy (Verified 09/22/20 14:08) Apnea ketorolac [From Toradol] Allergy (Verified 09/22/20 14:08) lidocaine [Lidocaine] Allergy (Verified 09/22/20 14:08) sulfamethoxazole [From Bactrim] Allergy (Verified 09/22/20 14:08) tramadol Allergy (Verified 09/22/20 14:08) trimethoprim [From Bactrim] Allergy (Verified 09/22/20 14:08) paliperidone [From Invega] Adverse Reaction (Verified 09/22/20 14:08) Severe Hypertension propranolol [Propranolol] Adverse Reaction (Verified 09/22/20 14:08) Severe Hypotension warfarin sodium [From Coumadin] Adverse Reaction (Verified 09/22/20 14:08) "Did not work" onions Allergy (Severe, Uncoded 09/22/20 14:08) Anaphylaxis nicotine patch adhesive Allergy (Intermediate, Uncoded 09/22/20 14:08) Rash Past Medical History - General Information source: Patient, [facility] Records - Social History Smoking Status: Former Smoker Family History: Reviewed & Not Pertinent, CAD, Other - father with CAD in his 50s and an unknown clotting disorder; uncle with unknown clotting disorder. Patient has homicidal ideation: No - Past Medical History Cardiac Medical History: Reports: Hx DVT, Hx Hypercholesterolemia, Hx Hypertension - on meds, Hx Pulmonary Embolism - was on Xarelto and Plavix, taken off both Oct 2018 Denies: Hx Atrial Fibrillation, Hx Congestive Heart Failure, Hx Coronary Artery Disease, Hx Heart Attack Pulmonary Medical History: Reports: Hx Asthma - ON MEDS, Hx Pneumonia, Hx Sleep Apnea Denies: Hx Bronchitis, Hx COPD Neurological Medical History: Reports: Hx Seizures - on depakote. Denies: Hx Cerebrovascular Accident, Hx Migraine, Hx Parkinson's Disease Endocrine Medical History: Reports: Hx Hypothyroidism. Denies: Hx Diabetes Mellitus Type 1, Hx Diabetes Mellitus Type 2, Hx Hyperthyroidism Renal/ Medical History: Denies: Hx Peritoneal Dialysis GI Medical History: Reports: Hx Gastroesophageal Reflux Disease. Denies: Hx Cirrhosis, Hx Hepatitis Musculoskeletal Medical History: Denies Hx Arthritis, Denies Hx Gout, Denies Hx Systemic Lupus Erythematosus Skin Medical History: Denies Hx Eczema, Denies Hx Psoriasis Psychiatric Medical History: Reports: Hx Anxiety, Hx Bipolar Disorder, Hx Borderline Personality Disorder, Hx Depression, Hx Personality Disorder, Hx Schizoaffective Disorder, Hx Schizophrenia Traumatic Medical History: Reports: Hx Traumatic Brain Injury Infectious Medical History: Denies: Hx Hepatitis Past Surgical History: Reports: Hx Cardiac Surgery - cannot confirm, Hx Coronary Stent - cannot confirm, Hx Orthopedic Surgery - ORIF Left Ankle, Other - Incision and drainage of abscess right forearm - Immunizations Immunizations up to date: Yes Hx Diphtheria, Pertussis, Tetanus Vaccination: Yes Hx Pneumococcal Vaccination: 10/31/13 Review of Systems - Review of Systems Notes: Constitutional: Negative for fever. HENT: Negative for sore throat. Eyes: Negative for visual changes. Cardiovascular: Negative for chest pain. Respiratory: Negative for shortness of breath. Gastrointestinal: As per HPI. Genitourinary: Negative for dysuria. Musculoskeletal: Generalized myalgias. Skin: Negative for rash. Neurological: Negative for headaches, weakness or numbness. 10 point ROS negative except as marked above and in HPI. Physical Exam - Vital signs Vitals: Temp Pulse Resp BP Pulse Ox 98.5 F 93 20 153/109 H 97 09/22/20 13:17 09/22/20 13:17 09/22/20 13:17 09/22/20 13:17 09/22/20 13:17 - Notes Notes: GENERAL: Well-developed well-nourished male approximately stated age who appears mildly uncomfortable. SKIN: Good turgor no rashes. HEAD: Normocephalic atraumatic. EYES: PERRLA. EOMI. Conjunctivae and sclerae clear. EARS: CANALS AND TMS CLEAR. NOSE: CLEAR. MOUTH: Moist mucosa. Good dentition. No stridor or edema. No drooling. NECK: Supple. No masses or thyromegaly. No adenopathy. Carotids 2+ without bruits. No JVD. BACK: Symmetrical without tenderness. CHEST: Respirations unlabored. Breath sounds clear and symmetrical. HEART: Regular rhythm. No murmur gallop or rub. ABDOMEN: Soft nontender without masses, organomegaly or rebound. Bowel sounds normally active. No bruits. GENITALIA: Deferred. EXTREMITIES: No edema. No calf tenderness. Cap refill less than 1.5 seconds. Dorsalis pedis and posterior tibial pulses 3+ and symmetrical. NEUROLOGICAL: GCS 15. Alert and oriented x3. Normal gait. Fluent speech. Cranial nerves II through XII intact. Sensorimotor and cerebellar normal. Normal tone. PSYCHIATRIC: Appropriate affect. Course - Re-evaluation Re-evalutation: 09/22/20 18:26 Patient was given Zofran IV with good control of his nausea. He is receiving 2 L of normal saline IV. He is tolerating p.o. fluids here and is had no vomiting since arrival in the ED. His labs are consistent with mild dehydration. COVID- 19 test remains pending. Influenza swab negative. Advised self-isolation at home and with push p.o. fluids and continue his usual medications. I will also send home a prescription for Zofran. Patient remained on isolation until he receives report of his Covid testing within 72 hours. He may follow-up with his primary care physician. Increase oral fluids. Findings, clinical impression and plan of treatment have been discussed with patient/family. Understanding of current findings and recommendations has been acknowledged by them and there is agreement regarding disposition and follow-up. - Vital Signs Vital signs: Temp Pulse Resp BP Pulse Ox 98.5 F 93 20 153/109 H 97 09/22/20 13:17 09/22/20 13:17 09/22/20 13:17 09/22/20 13:17 09/22/20 13:17 - Laboratory Result Diagrams: 09/22/20 14:52 09/22/20 14:52 Laboratory results interpreted by me: 09/22/20 09/22/20 14:52 14:52 MCV 79 L Acetaminophen < 10 L - Diagnostic Test Radiology reviewed: Image reviewed, Reports reviewed Radiology results interpreted by me: 09/22/20 18:26 Chest X-Ray 09/22/20 14:17 IMPRESSION: NO ACUTE RADIOGRAPHIC FINDING IN THE CHEST. Discharge - Discharge Clinical Impression: Dehydration, Acute viral syndrome, Patient under investigation for COVID-19 Condition: Stable Disposition: HOME, SELF-CARE Instructions: COVID-19 Guidance for Persons Under Investigation, Antinausea Medication ([facility]), Vomiting ([facility]) Prescriptions: Ondansetron [Zofran Odt 4 mg Tablet] 4 mg PO Q4HP PRN #30 tab.rapdis PRN Reason: Referrals: VICKI NAYAK MD [Primary Care Provider] - Follow up as needed
[2020-09-22 20:47] VITALS: BP 140/91
== END 2020-09-22 20:45 | disposition home or self-care (01) ==
LOC: ER 12:53
DX: E86.0 Dehydration (principal); B34.9 Viral infection, unspecified; R11.2 Nausea with vomiting, unspecified; R19.7 Diarrhea, unspecified; R50.9 Fever, unspecified; Z20.828 Contact with and (suspected) exposure to other viral communicable diseases; I10 Essential (primary) hypertension; E78.00 Pure hypercholesterolemia, unspecified; Z86.718 Personal history of other venous thrombosis and embolism
CPT/HCPCS: 99285; 96361; 96374; 36415; 80307; 85025; 87635; 80053; 81001; 84484; 87804; 71045; J2405; J7030; J3490; C9803